=== PATIENT | female | born 1935 | race Caucasian/White ===

== ENCOUNTER → 2018-07-16 | Day surgery (SDC) | payer MEDICARE ==
[2018-07-14 09:58] LABS: BASOPHILS # (AUTO) 0.1 (0.0-0.1); BASOPHILS % 0.8 % (0.0-1.0); EOSINOPHILS # (AUTO) 0.2 (0.0-0.4); EOSINOPHILS % 2.1 % (0.0-6.0); HEMATOCRIT 43.2 % (34.2-44.1); HEMOGLOBIN 14.4 g/dL (12.0-16.0); LYMPHOCYTES # (AUTO) 1.9 (1.0-3.2); LYMPHOCYTES % 23.9 % (18.0-39.1); MEAN CORPUSCULAR HEMOGLOBIN 31.7 pg (28-32); MEAN CORPUSCULAR HGB CONC 33.3 g/dL (31-35); MEAN CORPUSCULAR VOLUME 95.2 fL (81-99); MONOCYTES # (AUTO) 0.9 (0.2-0.8); MONOCYTES % 11.1 % (4.4-11.3); NEUTROPHILS # (AUTO) 4.8 (2.1-6.9); NEUTROPHILS % 61.5 % (38.7-80.0); PLATELET COUNT 233 x10e3/uL (140-360); RED BLOOD COUNT 4.54 x10e6/uL (3.6-5.1); RED CELL DISTRIBUTION WIDTH 12.3 % (11.7-14.4)
[2018-07-14 10:07] LABS: INR 1.32; PROTHROMBIN TIME 15.4 seconds (11.9-14.5)
[2018-07-14 10:08] LABS: PARTIAL THROMBOPLASTIN TIME 30.6 seconds (23.8-35.5)
--- NOTE | 2018-07-14 10:09 | Diagnostic Imaging Report ---
PROCEDURE: Frontal and lateral views of the chest. COMPARISON: Chest radiograph 04/21/17. INDICATIONS: PREOPERATIVE CHEST XRAY FOR CARPAL TUNNEL SURGERY FINDINGS: Lines/tubes: None. Lungs: Mild cephalization of pulmonary vasculature, suggestive of pulmonary venous hypertension without pulmonary edema. There is no evidence of pneumonia. Linear opacity in the left mid lung may represent linear atelectasis or scarring. Pleura: There is no pleural effusion or pneumothorax. Heart and mediastinum: The cardiomediastinal silhouette is unchanged. Atherosclerotic calcification of the aortic arch. Bones/soft tissues: No acute bony abnormality. Clips project over the left axilla. IMPRESSION: No acute intrathoracic abnormality. Dictated by: JESSICA MCCRARY M.D. on 07/14/2018 at 10:16 Electronically approved by: JESSICA MCCRARY M.D. on 07/14/2018 at 10:16
[~2018-07-16] MED LIST: ASPIR-LOW81 MG PO; BUPIVACAINE HCL 0.5% INJ 30 ML VIAL INJ ONE; CALTRATE 600600 MG PO; CEFAZOLIN SOD 1 GM VIAL IV ONE; CEFAZOLIN SOD 1 GM VIAL ONE; CENTRUM SILVER1 EAC3 PO; DEXAMETHASONE SOD PHOS INJ 4 MG/ML VIAL IV ONE; DIOVAN160 MG PO; FENTANYL CITRATE/PF 100MCG/2 ML INJ ONE; HYDRALAZINE HCL25 MG PO; LABETALOL HCL 20 ML ONE; LIDOCAINE HCL 2% LOCAL INJ 5 ML SDV VIAL INJ ONE; LOSARTAN POTAS100 MG PO; METOPROLOL TART25 MG PO; ONDANSETRON HCL INJ 2 MG/ML VIAL IV ONE; PROPOFOL IV EMULSION 10 MG/ML 20 ML VIAL IV ONE; PROPRANOLOL HCL80 MG PO; SEVOFLURANE INHAL SOLN 250 ML PEN BTL INH ONE; SIMVASTATIN80 MG PO; ZETIA10 MG PO; ZYRTEC10 MG PO
--- NOTE | 2018-07-16 11:02 | Operative Report ---
DATE OF PROCEDURE: July 16, 2018 PREOPERATIVE DIAGNOSIS: Right carpal tunnel syndrome. POSTOPERATIVE DIAGNOSIS: Right carpal tunnel syndrome. PROCEDURE: Right carpal tunnel release. ANESTHESIA: General. INDICATIONS: The patient is an 83-year-old woman who presents with right carpal tunnel syndrome. She was taken to the operating room for right carpal tunnel release. PROCEDURE: After induction of general anesthesia, the patient was placed on the operating table in the supine position. The right arm was abducted over a hand table. The right hand, wrist and forearm were prepped and draped circumferentially in a sterile fashion. A tourniquet was inflated over the upper arm to 250 mmHg. A small midline incision was created over the median palmar crease of the hand just distal to the distal flexor crease of the wrist. The subcutaneous fat was divided. The transverse carpal ligament was identified and incised with a #15C blade until the underlying median nerve came into view. As the cardiovascular physician assistant retracted the skin edges, the transverse carpal ligament was divided proximally and distally until the full length of the ligament had been were divided. The full length of the median nerve was exposed and decompressed within the carpal tunnel. The wound was copiously irrigated with Bacitracin solution. The recurrent motor branch of the nerve had been preserved within its fat pad. The subcutaneous layer was closed with 3-0 Vicryl suture. The skin was closed with a single 3-0 nylon suture in a horizontal mattress fashion. A dressing was applied after the incision had been infiltrated with lidocaine. The hand was wrapped. The patient was awakened, extubated and taken to the postanesthesia care unit in stable condition. No intraoperative complications were encountered. Estimated blood loss was minimal. Job#: [id number]
[2018-07-16 12:05] VITALS: BP 157/84
== END | disposition home or self-care (01) ==
LOC: OR 07:59
PROVIDERS: ATTEND Neurological Surgery
DX: G56.01 Carpal tunnel syndrome, right upper limb (principal); I25.10 Atherosclerotic heart disease of native coronary artery without angina pectoris; E78.5 Hyperlipidemia, unspecified; I10 Essential (primary) hypertension; Z01.810 Encounter for preprocedural cardiovascular examination; Z01.812 Encounter for preprocedural laboratory examination; Z01.818 Encounter for other preprocedural examination; Z79.82 Long term (current) use of aspirin; Z85.3 Personal history of malignant neoplasm of breast
CPT/HCPCS: 36415; 64721; 71046; 85025; 85610; 85730; 93005; J0690; J1100; J2001; J2405; J3490

== ENCOUNTER 2019-12-21 01:59 | Inpatient (IN) | payer MEDICARE ==
[~2019-12-21] VITALS: Ht 157.5 cm; Wt 65.4 kg
[~2019-12-21 01:59] MED LIST changes: -BUPIVACAINE HCL 0.5% INJ 30 ML VIAL INJ ONE; -CEFAZOLIN SOD 1 GM VIAL IV ONE; -CEFAZOLIN SOD 1 GM VIAL ONE; -DEXAMETHASONE SOD PHOS INJ 4 MG/ML VIAL IV ONE; -FENTANYL CITRATE/PF 100MCG/2 ML INJ ONE; -LABETALOL HCL 20 ML ONE; -LIDOCAINE HCL 2% LOCAL INJ 5 ML SDV VIAL INJ ONE; -ONDANSETRON HCL INJ 2 MG/ML VIAL IV ONE; -PROPOFOL IV EMULSION 10 MG/ML 20 ML VIAL IV ONE; -SEVOFLURANE INHAL SOLN 250 ML PEN BTL INH ONE
[2019-12-21 02:18] LABS: BASOPHILS % 0.2 % (0.0-1.0); HEMATOCRIT 38.9 % (34.2-44.1); LYMPHOCYTES # (AUTO) 0.8 (1.0-3.2); LYMPHOCYTES % 4.9 % (18.0-39.1); MEAN CORPUSCULAR HEMOGLOBIN 31.9 pg (28-32); MEAN CORPUSCULAR HGB CONC 33.4 g/dL (31-35); MEAN CORPUSCULAR VOLUME 95.6 fL (81-99); MONOCYTES # (AUTO) 0.9 (0.2-0.8); NEUTROPHILS # (AUTO) 13.9 (2.1-6.9); NEUTROPHILS % 88.6 % (38.7-80.0); PLATELET COUNT 270 x10e3/uL (140-360); RED BLOOD COUNT 4.07 x10e6/uL (3.6-5.1); RED CELL DISTRIBUTION WIDTH 12.5 % (11.7-14.4)
[2019-12-21 02:30] LABS: INR 1.01; PARTIAL THROMBOPLASTIN TIME 30.9 seconds (23.8-35.5); PROTHROMBIN TIME 13.9 seconds (11.9-14.5)
[2019-12-21] MEDS ORDERED: DILTIAZEM HCL 5 MG/ML 5 ML VIAL IV STA ×2 (02:37→06:22)
[2019-12-21 02:40] LABS: ALANINE AMINOTRANSFERASE 37 IU/L (0-55); ALBUMIN 3.8 g/dL (3.5-5.0); ALBUMIN/GLOBULIN RATIO 1.4 (0.8-2.0); ALKALINE PHOSPHATASE 65 IU/L (40-150); ANION GAP 14.6 mmol/L (8-16); BLOOD UREA NITROGEN 15 mg/dL (7-26); BUN/CREATININE RATIO 19 (6-25); CALCIUM 9.5 mg/dL (8.4-10.2); CARBON DIOXIDE 25 mmol/L (22-29); CHLORIDE 98 mmol/L (98-107); CREATINE KINASE 69 IU/L (29-168); EST GLOMERULAR FILTRATION RATE > 60 ML/MIN (60-); GLUCOSE 187 mg/dL (74-118); POTASSIUM 3.6 mmol/L (3.5-5.1); SODIUM 134 mmol/L (136-145)
[2019-12-21] MEDS ORDERED: METOPROLOL TARTRATE INJ 1 MG/ML VIAL IV ONE ×2 (02:45→18:00)
[2019-12-21 02:51] LABS: BILIRUBIN,URINE NEGATIVE (NEGATIVE); CLARITY,URINE CLEAR (CLEAR); COLOR,URINE YELLOW (YELLOW); KETONES,URINE 1+ (NEGATIVE); LEUKOCYTE ESTERASE ,URINE NEGATIVE (NEGATIVE); NITRITE,URINE NEGATIVE (NEGATIVE); PROTEIN,URINE DIPSTICK TRACE (NEGATIVE); URINE UROBILINOGEN 0.2 mg/dL (0.2 - 1)
[2019-12-21 03:04] LABS: BACTERIA,URINE FEW /HPF; EPITHELIAL CELLS,URINE FEW /LPF; WBC,URINE (MAN) 0-5 /HPF (0-5)
[2019-12-21] MEDS ORDERED: IOPAMIDOL 370 MG/ML 200 ML INFUS..BTL INJ ONE (03:23)
[2019-12-21] MEDS ORDERED: SODIUM CHLORIDE 0.9% 50ML 50 ML ONE (03:24)
[2019-12-21] MEDS ORDERED: ONDANSETRON HCL INJ 2MG/ML 2ML 2 MG/ML VIAL IV STA ×2 (03:25→07:18)
--- NOTE | 2019-12-21 04:19 | Diagnostic Imaging Report ---
EXAMINATION: CHEST 2 VIEWS INDICATION: Shortness of breath ^ABDOMINAL PAIN, AFIB RVR COMPARISON: Chest x-ray 08/17/2019 FINDINGS: PA and lateral views TUBES and LINES: None. LUNGS: Diffuse hyperinflation suggestive of small airways disease. New eventration of the right diaphragm with overlying lower lobe airspace opacity. Bilateral upper lung zone reticulonodular densities have developed. PLEURA: No pleural effusion or pneumothorax. HEART AND MEDIASTINUM: The heart is mildly enlarged. Ascending thoracic aorta is tortuous. BONES AND SOFT TISSUES: The bones are diffusely demineralized. Mild degenerative changes of the spine. No focal osseous lesions. Surgical clips in the left axilla are stable. The left breast shadow is smaller and the right suggestive of surgery. UPPER ABDOMEN: There is excreted contrast in the left renal collecting system. No hydronephrosis. IMPRESSION: 1. New right basilar airspace opacity may represent atelectasis or infiltrate. Bilateral upper lobe reticulonodular densities may represent an infectious/infiltrate process. 2. Other findings as described above. Signed by: Dr. Rebel Ramos MD on 12/21/2019 4:17 AM
--- NOTE | 2019-12-21 04:36 | Diagnostic Imaging Report ---
CT Abdomen And Pelvis with Intravenous Contrast INDICATION: Shortness of breath, burning sensation ^rlq pain TECHNIQUE: Thin collimation axial images obtained from the diaphragm to the level of the pubic symphysis following the uneventful administration of 100 cc of low osmolar, nonionic intravenous contrast. Dose reduction techniques used: Automated exposure control, adjustment of the mAs and/or kVp according to patient size, standardized low-dose protocol, and/or iterative reconstruction technique. RADIATION DOSE: Total DLP: 216.8 mGy*cm Estimated effective dose: (DLP x 0.015 x size factor) mSv CTDIvol has been reviewed. It is below the limits set by the Radiation Protocol Committee (RPC). COMPARISON: None. ABDOMEN FINDINGS: Lung Bases: Right pleural effusion layers posterior and measures 3 cm with associated atelectasis or infiltrate. Small left pleural effusion. Calcified lymph nodes at the GE junction measure less than 10 mm. Liver: No evidence for mass. Gallbladder: Present and appears normal. No biliary ductal dilatation. Pancreas: Normal attenuation without mass or ductal dilatation. Spleen: Normal in size. No evidence of mass.. Adrenal Glands: No evidence for mass. Kidneys: Right: Normal enhancement. Low attenuating lesion in the lower pole measures 2.2 cm and is somewhat wedge-shaped in appearance. Somewhat wedge-shaped low attenuating lesion in the lateral upper pole measures 13 mm. No hydronephrosis. No perinephric inflammation. Left: Normal enhancement. Upper pole cyst measures 8 mm. No hydronephrosis. No perinephric inflammation. Lymph Nodes: No lymphadenopathy. Aorta: Normal in diameter and diffusely calcified PELVIS FINDINGS: Bowel: Stomach: Normal. Small Bowel: Normal in caliber with normal wall thickness. Large Bowel: Normal in caliber with normal wall thickness. Appendix: Normal. Bladder: Normal. The uterus is present and normal in morphology. Parametrial vasculature is prominent Peritoneum/retroperitoneum: No free fluid or fluid collection. No free air. Bones: Degenerative changes of the spine. Grade 1 anterolisthesis of L4 and L5 without pars defects. No focal osseous lesions. Soft tissues: Unremarkable. IMPRESSION: 1. Bilateral pleural effusions, right larger than left, with bibasilar atelectasis. Small foci of pneumonia in the right lung base cannot be excluded. 2. No evidence for bowel obstruction or inflammation. Normal appendix. 3. Low attenuating lesions in the right kidney are suggestive of cysts; however, the largest lesion in the right kidney may also represent an infarct in the appropriate clinical setting. 3. 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 Signed by: Dr. Rebel Ramos MD on 12/21/2019 4:34 AM
[2019-12-21] MEDS ORDERED: AZITHROMYCIN 500MG/SOD CHL 0.9% 250ML BAG IV SCH (06:30)
[2019-12-21] MEDS ORDERED: CEFTRIAXONE SOD 1 GRAM/0.9% SOD CHL 50ML BAG IV SCH (06:30)
[2019-12-21] MEDS ORDERED: MORPHINE SULFATE INJ 4 MG/ML INJ 1ML IV STA (07:18)
[2019-12-21] MEDS: CEFTRIAXONE SOD 1 GM/NS 50 ML 50 ML IV SCH (07:49)
[2019-12-21] MEDS: AZITHROMYCIN 500MG/NS 250 ML 250 ML IV SCH (08:12)
[2019-12-21 10:11] LABS: CREATINE KINASE MB 1.7 ng/mL (0-5.0)
[2019-12-21 16:25] VITALS: BP 151/92
[2019-12-21 16:30] VITALS: BP 151/92
--- NOTE | 2019-12-21 16:30 | NUR ---
PATIENT RECEIVED FROM ER PER STRETCHER. ALERT AND VERBALLY RESPONSIVE. DENIED PAIN AT THIS TIME. SKIN WARM AND DRY TO TOUCH, RESPIRATION EVEN AND UNLABORED, ABDOMEN SOFT AND NON DISTENDED. TELEMETRY WITH PULSE OX IN PLACE. PATIENT ORIENTED TO SURROUNDINGS. BED IN LOWER POSITION, CALL LIGHT AT REACH. INSTRUCTED TO CALL FOR ASSISTANCE NEEDED.
--- NOTE | 2019-12-21 18:42 | NUR ---
MD IN TO SEE PATIENT, NOTIFIED OF ELEVATED HR 120-140. NEW ORDER RECEIVED AND IMPLEMENTED. HR AT 85-97 AT THIS TIME. WILL CLOSELY MONITOR.
--- NOTE | 2019-12-21 19:37 | NUR ---
RECEIVED PT IN BED AOX3 .DENIES PAIN .RESPIRATIONS ARE EVEN AND UNLABORED .CALL LIGHT WITH IN REACH .CONTINUE TO MONITOR
[2019-12-21 19:40] VITALS: BP 155/95
[2019-12-21 20:00] VITALS: BP 163/96
[2019-12-21] MEDS ORDERED: ENOXAPARIN SOD INJ 40 MG/0.4 ML SYR SC SCH (20:00)
[2019-12-21] MEDS ORDERED: METOPROLOL TARTRATE 25 MG TAB PO SCH (21:00)
[2019-12-21] MEDS: HYDRALAZINE HCL 25 MG TAB PO SCH (21:24)
[2019-12-21] MEDS: SIMVASTATIN 80 MG TAB PO SCH (21:25)
--- NOTE | 2019-12-21 22:09 | History and Physical ---
CHIEF COMPLAINT: An 84-year-old patient with abdominal pain. HISTORY OF PRESENT ILLNESS: This is an 84-year-old female, who came in to the emergency room with abdominal pain, epigastric in nature, radiating to both sides. The patient was found to be in atrial fibrillation with RVR, given Cardizem drip and the patient is admitted to the hospital. Currently, the patient is still running tachy and the patient has been given IV metoprolol 2.5 mg. PAST MEDICAL HISTORY: 1. History of hypertension. 2. History of hyperlipidemia. 3. History of atrial fibrillation. 4. History of abdominal pain. 5. History of hyperlipidemia. MEDICATIONS: She takes at home are: 1. Aspirin 81 mg daily. 2. Calcium 600 mg daily. 3. Zetia 10 mg daily. 4. Hydralazine 25 mg daily. 5. Losartan 100 mg daily. 6. Metoprolol 25 mg 3 times a day. 7. Simvastatin 80 mg daily. PAST SURGICAL HISTORY: History of lumpectomy for her breast cancer. FAMILY HISTORY: Positive for congestive heart failure in father and CAD in father. ALLERGIES: NO DRUG ALLERGIES. REVIEW OF SYSTEMS: Negative for chest pain. Positive for some shortness of breath. Positive abdominal pain. No nausea. No vomiting. No diarrhea. No constipation. No rectal bleeding. No hematochezia. No hematemesis. PHYSICAL EXAMINATION: VITAL SIGNS: Temperature is 99.1, pulse of 75, respirations of 19, pulse oximetry of 97%. The patient's blood pressure is 151/91. GENERAL: Currently, the patient is running tachy, atrial fibrillation with RVR. HEENT: Normocephalic, atraumatic. Pupils are reactive to light and accommodation. CVS: S1 and S2, irregularly irregular and tachy. ABDOMEN: Tender in the epigastrium. EXTREMITIES: No clubbing, no cyanosis, trace edema present. LABORATORY VALUES: Sodium 134, potassium 3.6. BUN of 15, creatinine 0.80. . BNP was 202. Coags, D-dimer was 562. INR was 1.012[place] [address] with neutrophil count of 88.6. IMAGING DATA: CT shows bilateral pleural effusions, right larger than left with basal atelectasis and foci of pneumonia in the right lung base cannot be excluded. No evidence of bowel obstruction or inflammation. Low-attenuation lesion, right kidney, with present pelvic congestion syndrome and potential causes of chronic abdominal pain. Chest x-ray shows new right basilar airspace opacity on infiltrate. ASSESSMENT: Ms. Laura Storey with pneumonia. PLAN: Continue azithromycin and Rocephin. We will continue the same. Blood cultures have been ordered and pending. The patient is on O2. Albuterol Atrovent treatment will be given and Xopenex treatments will be given. The patient also will be getting her metoprolol 3 times a day, atrial fibrillation with RVR. Consult with Dr. Mckoy has been done. The patient will be restarted on her metoprolol anticoagulation depending on Dr. Mckoy. We will continue to monitor the patient. Further recommendation and clinical course, echocardiogram, TSH, T4, T3, and magnesium will be done in the morning and we will restart her home medications. MD PORTILLO Spangler/MODL /[id number]
[2019-12-22] VITALS (8 sets, daily range): BP systolic 92–138; BP diastolic 55–93
[2019-12-22] MEDS ORDERED: SODIUM CHLORIDE 0.9% 250ML 250 ML ONE (03:21)
[2019-12-22] MEDS ORDERED: SODIUM CHLORIDE 0.9% 50ML 50 ML ONE (03:50)
[2019-12-22] MEDS ORDERED: IOPAMIDOL 370 MG/ML 200 ML INFUS..BTL INJ ONE (03:50)
--- NOTE | 2019-12-22 05:01 | Diagnostic Imaging Report ---
CT chest INDICATION: ^pneumonia pleural effusion ^20191222 ^0355 TECHNIQUE: Thin collimation axial images obtained through the level of the pulmonary arteries with additional imaging through the chest following the uneventful administration of 100 cc of low osmolar, nonionic intravenous contrast. Images reconstructed into coronal and sagittal MIPs for complete evaluation of the tortuous and overlapping pulmonary vascular structures and to reduce patient radiation dose. RADIATION DOSE: Total DLP: 504.69 mGy*cm Estimated effective dose: (DLP x 0.015 x size factor) mSv CTDIvol has been reviewed. It is below the limits set by the Radiation Protocol Committee (RPC). Dose reduction techniques used: Automated exposure control, adjustment of the mAs and/or kVp according to patient size, standardized low-dose protocol, and/or iterative reconstruction technique. COMPARISON: CT abdomen/pelvis 12/21/2019. FINDINGS: Pulmonary artery: Linear, nonocclusive filling defect in the lower lobe branch of the left pulmonary artery. No filling defect in the main pulmonary artery. Main pulmonary artery measures 2.5 cm Aorta: The thoracic aorta is not aneurysmal. No evidence for dissection. Lymph nodes: Left axillary lymph node dissection clips. No enlarged axillary or supraclavicular lymph nodes. There are multiple calcified mediastinal and hilar lymph nodes. Thyroid: Partially calcified nodule in the right lobe measures 7 mm. Mediastinum: The heart is enlarged. Calcifications of the aortic and mitral valves and scattered calcifications of the coronary arteries. No pericardial effusion. The esophagus is normal. Lungs/Pleura: Right Lung: Apical pleural-parenchymal thickening. Multiple noncalcified nodules in the upper lobe measure up to 5 mm. Calcified granuloma in the lower lobe measures 4 mm. Posterior left pleural effusion measures 2.8 cm with atelectasis of the overlying lung. Left Lung: Apical pleural-parenchymal thickening. 2 nodules in the lateral upper lobe measure up to 4 mm. There is subsegmental atelectasis in the lingular and the lower lobe. Fluid in the posterior costophrenic angle measures 15 mm with adjacent atelectasis. Abdomen: Low attenuating lesions in the right kidney are stable. Bones: Mild degenerative changes of the spine. No lytic or blastic lesions. IMPRESSION: 1. Nonocclusive embolus in the lower lobe branch of the left pulmonary artery. No evidence of right heart strain. 2. Bilateral pleural effusions, right larger than left, and bibasilar atelectasis. 3. Healed granulomatous inflammation. 4. Bilateral upper lobe nodules bear watching to confirm stability. Signed by: Dr. Rebel Ramos MD on 12/22/2019 4:59 AM
[2019-12-22 06:00] LABS: BASOPHILS % 0.1 % (0.0-1.0); EOSINOPHILS # (AUTO) 0.1 (0.0-0.4); EOSINOPHILS % 0.5 % (0.0-6.0); HEMATOCRIT 38.1 % (34.2-44.1); HEMOGLOBIN 13.1 g/dL (12.0-16.0); LYMPHOCYTES % 7.3 % (18.0-39.1); MEAN CORPUSCULAR HEMOGLOBIN 32.3 pg (28-32); MEAN CORPUSCULAR HGB CONC 34.4 g/dL (31-35); MEAN CORPUSCULAR VOLUME 93.8 fL (81-99); MONOCYTES # (AUTO) 1.6 (0.2-0.8); MONOCYTES % 11.2 % (4.4-11.3); NEUTROPHILS # (AUTO) 11.3 (2.1-6.9); NEUTROPHILS % 80.6 % (38.7-80.0); PLATELET COUNT 206 x10e3/uL (140-360); RED BLOOD COUNT 4.06 x10e6/uL (3.6-5.1); RED CELL DISTRIBUTION WIDTH 12.9 % (11.7-14.4)
[2019-12-22 06:29] LABS: ANION GAP 10.8 mmol/L (8-16); BLOOD UREA NITROGEN 10 mg/dL (7-26); BUN/CREATININE RATIO 15 (6-25); CALCIUM 8.7 mg/dL (8.4-10.2); CARBON DIOXIDE 24 mmol/L (22-29); CHLORIDE 97 mmol/L (98-107); CREATININE, SERUM 0.67 mg/dL (0.57-1.11); EST GLOMERULAR FILTRATION RATE > 60 ML/MIN (60-); GLUCOSE 121 mg/dL (74-118); MAGNESIUM 1.8 MG/DL (1.3-2.1); POTASSIUM 3.8 mmol/L (3.5-5.1); SODIUM 128 mmol/L (136-145)
[2019-12-22] MEDS: CEFTRIAXONE SOD 1 GM/NS 50 ML 50 ML IV SCH (06:45)
--- NOTE | 2019-12-22 07:34 | NUR ---
BEDSIDE REPORT GIVEN TO THE ONCOMING NURSE
--- NOTE | 2019-12-22 08:15 | Progress Note ---
DATE: 12/22/2019 SUBJECTIVE: An 84-year-old lady who came in with shortness of breath and also with abdominal pain. Yesterday, the patient came and initial CT scan showed a questionable pneumonia in the right lower lobe. The patient was started on antibiotic. Also, the patient was noted to have atrial fibrillation with RVR. Coag study showed D-dimer elevation. A CT scan was done yesterday. The patient was started on Lovenox 1 mg/kg probably secondary to possible pulmonary embolism. CT scan of the lung revealed a pulmonary embolism, nonocclusive from the left pulmonary artery with no evidence of right artery strain. The patient also had bilateral pleural effusion, started again on Lovenox and the patient is currently feeling better. The patient is still having a rapid ventricular response. Currently, no chest pain. No shortness of breath. Abdominal pain is much better. OBJECTIVE: VITAL SIGNS: Show temperature of 98.9, T-max of 99.7, respirations of 16, pulse is 110, blood pressure is 134/64, pulse oximetry is 95% with O2 of 2 L. HEENT: Normocephalic and atraumatic. Pupils reactive to light and accommodation. CVS: S1 and S2. Regular. Tachy. ABDOMEN: Nontender, nondistended. LUNGS: Positive for crackles in both lung bases, also some rhonchi. EXTREMITIES: No clubbing, no cyanosis, no edema. LABORATORY VALUES: Chemistry today shows sodium of 128, potassium of 3.8, BUN of 10.10, creatinine 0.67. BNP was 202. Hematology, white count is down to 13,000, hemoglobin of 13.1, hematocrit 38.4. Coags as noted. D-dimer is 562. IMAGING STUDIES: Chest CT shows nonocclusive emboli of lower branch of left pulmonary artery, bilateral pleural effusion, right greater than left, healed granulomatous inflammation in bilateral upper nodules ASSESSMENT: Ms. Laura Storey with: 1. Pulmonary embolism. 2. Questionable pneumonia. 3. Leukocytosis, probably reactive. 4. Hypertension. 5. Atrial fibrillation with RVR. PLAN: Increased metoprolol to 50 mg 3 times a day. Consult with Dr. Mckoy has been placed. Echocardiogram has been done. The patient is on Lovenox 1 mg/kg twice a day. We will begin with 2 Xarelto which she has been taking before. We will keep the antibiotics on board until leukocytosis resolved. We will continue to monitor the patient. Microbiology is normal so far. Blood cultures are still pending. Further recommendation per clinical course. We will continue to monitor the patient and will continue to monitor the patient along with Dr. Mckoy. MD PORTILLO Spangler/GLENDA /[id number]
[2019-12-22] MEDS: HYDRALAZINE HCL 25 MG TAB PO SCH ×3 (08:29→20:38)
[2019-12-22] MEDS: ASPIRIN 81 MG CHEW TAB PO SCH (08:29)
[2019-12-22] MEDS: METOPROLOL TARTRATE 50 MG TAB PO SCH ×3 (08:29→20:39)
[2019-12-22] MEDS: EZETIMIBE 10 MG TAB PO SCH (08:29)
[2019-12-22] MEDS: LOSARTAN POTASSIUM 100 MG TAB PO SCH (08:29)
[2019-12-22] MEDS: ENOXAPARIN INJ 80 MG/0.8 ML SYR SC SCH ×2 (08:30→20:39)
[2019-12-22] MEDS: AZITHROMYCIN 500MG/NS 250 ML 250 ML IV SCH (08:42)
[2019-12-22] MEDS: AMIODARONE HCL 200 MG TAB PO SCH ×3 (11:02→23:42)
--- NOTE | 2019-12-22 15:47 | Consultation ---
DATE OF CONSULTATION: 12/22/2019 Cardiology Consultation Ms. Storey is a [facility] 84-year-old woman known to me for many years, who is sent from Dr. Flores's office on the with complaints of abdominal discomfort and atrial fibrillation. HISTORY OF PRESENT ILLNESS: The patient has a diary at home of blood pressures and heart rates noted over the past 2 weeks that she occasionally would have a heart rate of 100 and then later would have a heart rate in the 70s and 80s. She noted after leaving his office that she had abdominal discomfort and came to the emergency room. She denies any nausea, vomiting, or diarrhea. PAST MEDICAL HISTORY: Significant for breast cancer on the left side in 1996, treated with radiation therapy and lumpectomy. She did not have any chemotherapy. She developed pericardial effusion in 1997, treated with pericardial window. She has longstanding hypertension and cardiac cath and carotid angiogram April 2017, showed insignificant coronary artery disease. Normal LV function and moderate carotid disease. MEDICATIONS: Recent home medications have been calcium, multivitamin, metoprolol tartrate 25 mg twice a day, aspirin 81 mg daily, hydralazine 50 mg 3 times a day, simvastatin 80 mg daily, ezetimibe 10 mg daily, and losartan 100 mg daily. PERSONAL AND SOCIAL HISTORY: She does not smoke or drink. ALLERGIES: SHE HAS NO KNOWN ALLERGIES, ALTHOUGH SHE WAS INTOLERANT OF TAMBOCOR, FLECAINIDE, WHICH EVIDENTLY CAUSE SOME NEUROLOGIC SYMPTOMS. PHYSICAL EXAMINATION: GENERAL: At this time shows a pleasant woman, who is alert and responsive. VITAL SIGNS: Blood pressure 132/85, pulse is 107 and irregularly irregular. HEAD, EYES, EARS, NOSE, AND THROAT: Relatively unremarkable. NECK: No jugular venous distention. THORAX: Heart sounds S1 and S2 are equal, but irregularly irregular. There is no distinct murmur. LUNGS: Clear to exam. ABDOMEN: Protuberant. Normal bowel sounds. Minimal tenderness. EXTREMITIES: There is no cyanosis, clubbing, or edema. LABORATORY DATA: EKG shows atrial fibrillation. CAT scan of the chest shows embolus in the left lower lobe branch of pulmonary artery. Multiple pulmonary nodules, 4 and 5 mm in size with possible infiltrates. CBC shows white count 13.9. ASSESSMENT: 1. Intermittent atrial fibrillation. 2. Pulmonary nodules. 3. Pulmonary embolus. 4. History of breast cancer. PLAN: As the atrial fibrillation seems to be intermittent, we will go ahead and begin amiodarone oral loading. We will check venous Doppler scan of the legs and ask for Pulmonary consultation as well. Thank you for asking me to see her in consultation. MD ARRON Menendez/GLENDA /[id number]
[2019-12-22] MEDS: ONDANSETRON HCL INJ 2MG/ML 2ML 2 MG/ML VIAL IV PRN (17:27)
[2019-12-22] MEDS ORDERED: PANTOPRAZOLE SOD 40 MG TABEC PO ONE (18:00)
--- NOTE | 2019-12-22 20:07 | NUR ---
RECEIVED PT IN BED AOX3 .DENIES PAIN .CALL LIGHT WITH IN REACH .CONTINUE TO MONITOR
[2019-12-22] MEDS: SIMVASTATIN 80 MG TAB PO SCH (20:39)
[2019-12-23] VITALS (7 sets, daily range): BP systolic 106–119; BP diastolic 58–79
--- NOTE | 2019-12-23 00:23 | Consultation ---
DATE OF CONSULTATION: 12/22/2019 Pulmonary Consult[address] Patient of Dr. Stephan Flores and Dr. Mckoy. HISTORY OF PRESENT ILLNESS: A charming 84-year-old woman, admitted with sudden onset of abdominal pain, found to be in acute heart failure with atrial fibrillation, rapid ventricular response. She has had similar episodes in the past, usually active. There is a history of breast cancer in 1996, treated with lumpectomy and radiation. She had pericardial window for large pericardial effusion in 2018. She had recurrence of her atrial fibrillation. She denies shortness of breath, however. ALLERGIES: NO KNOWN ALLERGIES. MEDICATIONS: Calcium, vitamin, aspirin, Zetia, apresoline, losartan, metoprolol, and Zocor. PAST SURGICAL HISTORY: She had carpal tunnel surgery. 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 Born in [place], [place]. Nonsmoker. No alcohol use. FAMILY HISTORY: Positive for stroke and heart failure. PHYSICAL EXAMINATION: GENERAL: white female, in no acute distress, complaining of abdominal pain regular, blood pressure 111/61. HEAD: Normocephalic and atraumatic. EYES: Extraocular movements are intact. LUNGS: Diminished breath sounds, both bases. HEART: Irregular rhythm. ABDOMEN: Nontender. EXTREMITIES: Not edematous. venous Doppler. IMPRESSION: Multiple subcentimeter pulmonary nodules . PLAN: There is no evidence of pneumonia. We will discontinue Zithromax as this is known to cause GI upset. Continue Rocephin. Trial of Protonix. Follow up CT in 4 to 6 weeks. Check . Thank you for this kind referral. Hany Esposito MD DS/MODL /[id number]
[2019-12-23] MEDS: CEFTRIAXONE SOD 1 GM/NS 50 ML 50 ML IV SCH (06:32)
[2019-12-23] MEDS: AMIODARONE HCL 200 MG TAB PO SCH ×3 (06:32→22:26)
--- NOTE | 2019-12-23 06:57 | NUR ---
PT RESTED DURING THE NIGHT ND PT C/O DIARRHEA .NOTIFIED DR DIAZ .BEDSIDE REPORT GIVEN TO THE ONCOMING NURSE
[2019-12-23 07:37] LABS: BASOPHILS % 0.2 % (0.0-1.0); EOSINOPHILS % 0.4 % (0.0-6.0); HEMATOCRIT 36.6 % (34.2-44.1); HEMOGLOBIN 12.3 g/dL (12.0-16.0); LYMPHOCYTES # (AUTO) 1.1 (1.0-3.2); LYMPHOCYTES % 10.2 % (18.0-39.1); MEAN CORPUSCULAR HEMOGLOBIN 31.6 pg (28-32); MEAN CORPUSCULAR HGB CONC 33.6 g/dL (31-35); MEAN CORPUSCULAR VOLUME 94.1 fL (81-99); MONOCYTES # (AUTO) 1.5 (0.2-0.8); NEUTROPHILS # (AUTO) 7.9 (2.1-6.9); NEUTROPHILS % 74.9 % (38.7-80.0); PLATELET COUNT 204 x10e3/uL (140-360); RED BLOOD COUNT 3.89 x10e6/uL (3.6-5.1); RED CELL DISTRIBUTION WIDTH 12.9 % (11.7-14.4)
[2019-12-23 07:54] LABS: ANION GAP 9.9 mmol/L (8-16); BLOOD UREA NITROGEN 15 mg/dL (7-26); BUN/CREATININE RATIO 21 (6-25); CALCIUM 8.7 mg/dL (8.4-10.2); CARBON DIOXIDE 24 mmol/L (22-29); CHLORIDE 95 mmol/L (98-107); CREATININE, SERUM 0.71 mg/dL (0.57-1.11); EST GLOMERULAR FILTRATION RATE > 60 ML/MIN (60-); GLUCOSE 105 mg/dL (74-118); POTASSIUM 3.9 mmol/L (3.5-5.1); SODIUM 125 mmol/L (136-145)
[2019-12-23] MEDS: PANTOPRAZOLE SOD 40 MG TABEC PO SCH (08:00)
[2019-12-23] MEDS: EZETIMIBE 10 MG TAB PO SCH (09:00)
[2019-12-23] MEDS: ASPIRIN 81 MG CHEW TAB PO SCH (09:00)
[2019-12-23] MEDS: METOPROLOL TARTRATE 50 MG TAB PO SCH ×3 (09:00→22:25)
[2019-12-23] MEDS: LOSARTAN POTASSIUM 100 MG TAB PO SCH (09:00)
--- NOTE | 2019-12-23 10:35 | Progress Note ---
DATE: 12/23/2019 SUBJECTIVE: The patient came in with abdominal pain, was incidentally found to have pneumonia. The patient had a D-dimer done, which was elevated. A CT scan done, which showed a small pulmonary embolism, kept in the hospital for atrial fibrillation and also pulmonary embolism. DVT study was done yesterday. No official report is here, but initial tech report was negative. The patient is currently on Lovenox 1 mg/kg twice a day. Throughout the night had 4 bowel movements yesterday and also after the loading dose of amiodarone. The patient is nauseous currently, otherwise doing better. Heart rate is stable. OBJECTIVE: VITAL SIGNS: Temperature is 97.5, pulse of 78, respirations of 19, blood pressure is 107/79, pulse oximetry of 95% on 2 L. HEENT: Normocephalic and atraumatic. The patient looks nauseous. CVS: S1 and S2. Irregular. LUNGS: Clear to auscultation bilaterally. ABDOMEN: Tenderness in the left lower quadrant and the right lower quadrant. EXTREMITIES: No clubbing, no cyanosis. Trace edema. LABORATORY DATA: The patient's white count yesterday was 13,000. Sodium was 128, potassium is 3.8. We will repeat them today. Coags, INR was 1.01 initially and D-dimer was 562. CURRENT MEDICATIONS: Include 400 mg of amiodarone q.8 hours, Rocephin 1 g q.24, Lovenox 70 mg q.12, metoprolol 50 mg 3 times a day, simvastatin 80 mg at nighttime, Zofran as needed, losartan 100 mg daily, Zetia 10 mg daily, azithromycin and pantoprazole. ASSESSMENT: Ms. Laura Storey with: 1. Atrial fibrillation with rapid ventricular response. Loading dose of amiodarone has been given. Continue with p.o. daily dose. 2. Pulmonary embolism. The patient can be switched over to Xarelto. The patient will have a repeat CT scan in [address] Esposito and we will follow up with the nodules. 3. Hypertension. 4. Hyperlipidemia. 5. Pulmonary embolism. 6. Leukocytosis. PLAN: Currently, the patient is on azithromycin and Rocephin. We will go ahead and discontinue azithromycin. Switch over to Xarelto if it is okay with Cardiology. Continue rate control with amiodarone and metoprolol. Blood pressure monitoring and continue with losartan. Further recommendation per clinical course. If nausea and diarrhea dissipates, discharge home in a day or 2, and follow up as an outpatient on Xarelto. MD PORTILLO Spangler/KATHIAL /[id number]
[2019-12-23] MEDS: ONDANSETRON HCL INJ 2MG/ML 2ML 2 MG/ML VIAL IV PRN (11:24)
[2019-12-23] MEDS: HYDRALAZINE HCL 25 MG TAB PO SCH ×3 (11:28→22:24)
[2019-12-23] MEDS ORDERED: RIVAROXABAN 20 MG TABLET PO SCH (17:00)
[2019-12-23] MEDS ORDERED: AZITHROMYCIN 500MG/NS 250 ML 250 ML IV SCH (18:00)
[2019-12-23] MEDS ORDERED: ACETAMINOPHEN 325 MG TAB PO PRN (22:00)
[2019-12-23] MEDS: SIMVASTATIN 80 MG TAB PO SCH (22:26)
[2019-12-23] MEDS: DIPHENOXYLATE/ATROPINE TAB PO PRN (22:26)
[2019-12-24] VITALS (9 sets, daily range): BP systolic 108–133; BP diastolic 50–76
[2019-12-24] MEDS: ONDANSETRON HCL INJ 2MG/ML 2ML 2 MG/ML VIAL IV PRN ×2 (03:06→11:27)
[2019-12-24] MEDS: AMIODARONE HCL 200 MG TAB PO SCH ×3 (06:37→21:19)
[2019-12-24] MEDS: PANTOPRAZOLE SOD 40 MG TABEC PO SCH (09:21)
[2019-12-24] MEDS: SODIUM CHLORIDE 0.9% 1000ML 1,000 ML IV SCH (09:21)
[2019-12-24] MEDS: LOSARTAN POTASSIUM 100 MG TAB PO SCH (09:22)
[2019-12-24] MEDS: ASPIRIN 81 MG CHEW TAB PO SCH (09:22)
[2019-12-24] MEDS: HYDRALAZINE HCL 25 MG TAB PO SCH ×3 (09:22→21:18)
[2019-12-24] MEDS: METOPROLOL TARTRATE 50 MG TAB PO SCH ×3 (09:22→21:18)
[2019-12-24] MEDS: EZETIMIBE 10 MG TAB PO SCH (09:22)
[2019-12-24] MEDS: DIPHENOXYLATE/ATROPINE TAB PO PRN (09:23)
[2019-12-24] MEDS ORDERED: CHOLESTYRAMINE 4 GM PACKET PO PRN (09:45)
--- NOTE | 2019-12-24 10:15 | Progress Note ---
DATE: 12/24/2019 SUBJECTIVE: This is an 84-year-old lady with a history of atrial fibrillation with RVR, and pulmonary embolism. The patient is currently on Xarelto, currently being seen by Cardiology and Pulmonology. The patient currently complains of diarrhea, which has been constant. The patient complains of painful rectum and also complains of abdominal bloating and uneasiness. No chest pain. No palpitations. OBJECTIVE: VITAL SIGNS: On examination, temperature is 98.8, afebrile, pulse of 95, respirations of 19, blood pressure is 133/67, and pulse oximetry 96% on room air. HEENT: Normocephalic and atraumatic. Pupils are reactive to light and accommodation. CVS: S1 and S2. Regular. ABDOMEN: Distended. EXTREMITIES: No clubbing, no cyanosis, no edema. LABORATORY DATA: From yesterday, white count is 10,000. Chemistry shows sodium 125, potassium of 3.9, and CO2 of 24. Coags, none done. MICROBIOLOGY: No growth in blood culture. Bilateral venous lower extremities showed normal. ASSESSMENT: Ms. Laura Storey with: 1. Atrial fibrillation with RVR. 2. Pulmonary embolism. 3. Hypertension. 4. Hyponatremia. 5. Leukocytosis. 6. Hypertension. PLAN: 1. The patient has been taken off antibiotics at this time. White count has normalized. 2. For pulmonary embolism, the patient is on Xarelto and amiodarone. 3. Diarrhea with resultant hyponatremia. IV fluid resuscitation to 50 cc an hour of normal saline. Continue monitoring the patient's sodium. 4. Further recommendation per clinical course. 5. Discharge planning depend on diarrhea and also a KUB has been ordered for distention of the abdomen. MD PORTILLO Spangler/KATHIAL /[id number]
--- NOTE | 2019-12-24 10:15 | NUR ---
Notified Dr. Flores that pt is having dark brown emesis and rectal bleeding. Received orders for STAT CT of abd/pelvis. STAT CBC. consult Ana Stephens and stop vincent.
--- NOTE | 2019-12-24 10:29 | Diagnostic Imaging Report ---
Abdomen, one view on 2 radiographs Clinical indications: Bloating Comparison: Abdominal CT dated 12/21/2019 Impression: There is a mildly dilated loop of small bowel in the central abdomen which measures approximately 3.7 cm in diameter which may be secondary to partial obstruction or ileus. No dilated loops of large bowel are identified. No acute osseous abnormalities. A small right pleural effusion is present. Signed by: Padilla Luke MD on 12/24/2019 10:26 AM
[2019-12-24] MEDS ORDERED: PANTOPRAZOLE 40 MG 10ML VIAL IV NR (10:30)
[2019-12-24] MEDS ORDERED: SODIUM CHLORIDE 0.9% 100 ML ONE (11:42)
[2019-12-24] MEDS ORDERED: IOPAMIDOL 370 MG/ML 200 ML INFUS..BTL INJ ONE (11:43)
--- NOTE | 2019-12-24 12:07 | Diagnostic Imaging Report ---
CT angiogram of the abdomen and pelvis History: Possible GI bleed Comparison: CT of the abdomen and pelvis performed 12/21/2019. Technique: Multidetector CT scanning of the abdomen and pelvis was performed from the level of the lung bases to the inferior pubic ramus. Images were acquired the noncontrast phase followed by IV contrast-enhanced images in the arterial and delayed phases. Images were reformatted into coronal and sagittal planes. DOSE REDUCTION: The examination was performed according to departmental dose-optimization program which includes automated exposure control, adjustment of the mA and/or kV according to patient size and/or use of iterative reconstruction technique. Discussion: There are moderate right and trace left pleural effusions.. No focal hepatic lesions are identified. The gallbladder is present and nondistended. No intrahepatic or extrahepatic biliary dilatation. The spleen is within normal limits of size. The bilateral adrenal glands are unremarkable. There is no pancreatic ductal dilatation. The kidneys are normal in size. There is decreased enhancement of the inferior pole of the right kidney which is unchanged compared to the prior examination and may be secondary to infarction. There is no hydroureteronephrosis bilaterally. No renal calculi are identified. The stomach is nondistended. There are dilated loops of duodenum and jejunum measuring up to 3.9 cm in diameter. Apparent transition point is identified in the left upper quadrant. The ileum and colon are decompressed. There is no evidence of pneumatosis intestinalis or free intraperitoneal air. There has been development of a mesenteric edema trace ascites which is likely reactive from the bowel obstruction. The abdominal aorta is of normal course and caliber. The uterus and bilateral adnexa are within normal limits. The urinary bladder is normal in appearance. No acute osseous abnormalities are identified. IMPRESSION: 1. No evidence of active gastrointestinal bleeding. 2. Partial small bowel obstruction with dilated loops of duodenum and jejunum measuring up to 3.9 cm in diameter. There is no evidence of perforation or pneumatosis intestinalis. 3. Development of a trace amount of ascites and mesenteric edema which is likely reactive to the partial bowel obstruction. 4. Moderate right and trace left pleural effusions. Signed by: Padilla Luke MD on 12/24/2019 12:04 PM
[2019-12-24 12:16] LABS: BASOPHILS % 0.1 % (0.0-1.0); EOSINOPHILS % 0.3 % (0.0-6.0); HEMATOCRIT 28.9 % (34.2-44.1); HEMOGLOBIN 9.7 g/dL (12.0-16.0); LYMPHOCYTES # (AUTO) 0.8 (1.0-3.2); LYMPHOCYTES % 9.6 % (18.0-39.1); MEAN CORPUSCULAR HEMOGLOBIN 31.9 pg (28-32); MEAN CORPUSCULAR HGB CONC 33.6 g/dL (31-35); MEAN CORPUSCULAR VOLUME 95.1 fL (81-99); MONOCYTES % 12.2 % (4.4-11.3); NEUTROPHILS # (AUTO) 6.1 (2.1-6.9); NEUTROPHILS % 77.3 % (38.7-80.0); PLATELET COUNT 203 x10e3/uL (140-360); RED BLOOD COUNT 3.04 x10e6/uL (3.6-5.1); RED CELL DISTRIBUTION WIDTH 12.5 % (11.7-14.4)
--- NOTE | 2019-12-24 12:38 | NUR ---
CT results called to Dr. Flores and received orders for to consult Edgard palomo and make pt NPO
--- NOTE | 2019-12-24 19:15 | NUR ---
RECEIVED REPORT FROM DAY NURSE. PATIENT IS RESTING COMFORTABLY IN BED. BED IS IN LOWEST POSITION AND CALL LIGHT IS WITHIN REACH. WILL CONTINUE TO MONITOR PATIENT.
[2019-12-24] MEDS: SIMVASTATIN 80 MG TAB PO SCH (21:18)
[2019-12-25] VITALS (7 sets, daily range): BP systolic 98–130; BP diastolic 50–77
[2019-12-25] MEDS: SODIUM CHLORIDE 0.9% 1000ML 1,000 ML IV SCH ×2 (05:41→23:30)
--- NOTE | 2019-12-25 06:25 | Diagnostic Imaging Report ---
Acute Abdominal Series CPT CODE: 20801 INDICATION: Ileus. COMPARISON: CT abdomen/pelvis 12/24/2019, CT chest 10/21/2020. FINDINGS: Single view of the chest shows small right pleural effusion and atelectasis. There is baseline pulmonary hyperinflation. The heart is enlarged. Left axillary dissection clips are stable. Supine and erect views of the abdomen show no dilated bowel loops. There are diffuse air-fluid levels, particularly within the right hemiabdomen. No pneumatosis. No free air. There is excreted contrast in the urinary bladder. Stable degenerative changes of the spine with mild scoliosis of the lumbar spine. IMPRESSION: 1. Multiple air-fluid levels in the bowel are suggestive of ileus or low-grade partial small bowel obstruction. No pneumatosis. 2. Stable right pleural effusion. Cardiomegaly and COPD. Signed by: Dr. Rebel Ramos MD on 12/25/2019 6:23 AM
[2019-12-25 07:19] LABS: BASOPHILS % 0.5 % (0.0-1.0); EOSINOPHILS # (AUTO) 0.2 (0.0-0.4); EOSINOPHILS % 2.4 % (0.0-6.0); HEMATOCRIT 27.1 % (34.2-44.1); HEMOGLOBIN 8.8 g/dL (12.0-16.0); LYMPHOCYTES % 12.2 % (18.0-39.1); MEAN CORPUSCULAR HEMOGLOBIN 31.2 pg (28-32); MEAN CORPUSCULAR HGB CONC 32.5 g/dL (31-35); MEAN CORPUSCULAR VOLUME 96.1 fL (81-99); MONOCYTES # (AUTO) 1.2 (0.2-0.8); MONOCYTES % 15.4 % (4.4-11.3); NEUTROPHILS # (AUTO) 5.4 (2.1-6.9); PLATELET COUNT 221 x10e3/uL (140-360); RED BLOOD COUNT 2.82 x10e6/uL (3.6-5.1); RED CELL DISTRIBUTION WIDTH 12.7 % (11.7-14.4)
--- NOTE | 2019-12-25 07:29 | NUR ---
report given to day nurse. patient is resting comfortably in bed. bed is in lowest position and call light is within reach.
--- NOTE | 2019-12-25 07:30 | NUR ---
The pt. is in bed awake and reports expelling black stools. SHe denies other problems at this time.
[2019-12-25 07:48] LABS: ANION GAP 7.9 mmol/L (8-16); BLOOD UREA NITROGEN 19 mg/dL (7-26); BUN/CREATININE RATIO 24 (6-25); CALCIUM 8.5 mg/dL (8.4-10.2); CARBON DIOXIDE 23 mmol/L (22-29); CHLORIDE 104 mmol/L (98-107); CREATININE, SERUM 0.78 mg/dL (0.57-1.11); EST GLOMERULAR FILTRATION RATE > 60 ML/MIN (60-); GLUCOSE 92 mg/dL (74-118); POTASSIUM 3.9 mmol/L (3.5-5.1); SODIUM 131 mmol/L (136-145)
--- NOTE | 2019-12-25 08:50 | Progress Note ---
DATE: 12/25/2019 SUBJECTIVE: The patient had come in with history of pneumonia and pulmonary embolism. Anticoagulation was started. The patient was on Xarelto and also on loading doses of amiodarone for her atrial fibrillation with RVR. Yesterday morning, the patient developed a coffee-ground emesis and stat CT scans and x-rays were done, showed questionable partial small bowel obstruction with ileus, kept n.p.o. The patient is on hydration at this time. Antibiotics have been started. The patient also has stool studies pending. Still having diarrhea continue, C diff has been ordered. No chest pain. No shortness of breath. The patient is depressed because of her findings. Currently n.p.o. and held off anticoagulation. OBJECTIVE: VITAL SIGNS: Temperature is 97.5, pulse of 66, respirations of 16, blood pressure is 109/53, and pulse oximetry of 95%. HEENT: Normocephalic and atraumatic. Pupils are reactive to light and accommodation. CVS: S1 and S2 irregular. ABDOMEN: Distended. EXTREMITIES: No clubbing, no cyanosis, no edema. ABDOMEN: Bowel sounds are positive. LABORATORY VALUES: White count is 7.77, hemoglobin of 8.8, and hematocrit 27.1. Chemistries are pending. Yesterday's sodium was 125. IMAGING STUDIES: CT shows no evidence of acute GI bleed. Partial small-bowel obstruction. Development of trace amount of ascites and moderate right and trace left pleural effusion. ASSESSMENT: 1. Ms. Laura Storey is with an acute upper gastrointestinal bleed. 2. Enteritis. 3. Questionable small-bowel obstruction. 4. Pulmonary embolism. 5. Atrial fibrillation with rapid ventricular response. 6. Debility. 7. Ascites and pleural effusion. PLAN: Continue with saline at this time, rehydration. The patient is kept n.p.o., and NG tube has been introduced, off the anticoagulation. The patient will have SCDs. Continue to monitor the patient. The patient needs to be on anticoagulation at some point if enteritis has resolved. Further recommendations per clinical course. We will continue to monitor the patient. Labs will be done on a regular basis, perhaps a clear liquid diet can be restarted today and we will follow up with stool studies. MD PORTILLO Spangler/MODL /[id number]
[2019-12-25] MEDS: PANTOPRAZOLE 40 MG 10ML VIAL IV SCH (10:00)
[2019-12-25] MEDS: HYDRALAZINE HCL 25 MG TAB PO SCH ×3 (10:15→20:51)
[2019-12-25] MEDS: ASPIRIN 81 MG CHEW TAB PO SCH (10:15)
[2019-12-25] MEDS: LOSARTAN POTASSIUM 100 MG TAB PO SCH (10:16)
[2019-12-25] MEDS: AMIODARONE HCL 200 MG TAB PO SCH (10:16)
[2019-12-25] MEDS: EZETIMIBE 10 MG TAB PO SCH (10:17)
[2019-12-25] MEDS: METOPROLOL TARTRATE 50 MG TAB PO SCH ×3 (10:17→20:52)
--- NOTE | 2019-12-25 14:02 | NUR ---
Rectal tube placed at the request of Dr. Flores due to almost continuos dark stool evacuation.
--- NOTE | 2019-12-25 17:57 | NUR ---
Both iv sites are infiltrated and discontinued Restart 22g in the antecubital space one try.
--- NOTE | 2019-12-25 19:20 | NUR ---
received report from day nurse. patient is resting comfortably in the bed. bedside rounds complete. bed is in lowest position and call light is within reach. will continue to monitor patient.
[2019-12-25] MEDS: SIMVASTATIN 80 MG TAB PO SCH (20:55)
[2019-12-26] VITALS (8 sets, daily range): BP systolic 116–157; BP diastolic 57–84
[2019-12-26] MEDS: ZOLPIDEM TARTRATE 5 MG TAB PO PRN (03:24)
--- NOTE | 2019-12-26 07:02 | NUR ---
bedside rounding complete. patient is resting comfortably in the bed. bed is in the lowest position and call light is within reach.
[2019-12-26 07:11] LABS: BASOPHILS % 0.5 % (0.0-1.0); EOSINOPHILS # (AUTO) 0.1 (0.0-0.4); EOSINOPHILS % 1.7 % (0.0-6.0); HEMATOCRIT 23.7 % (34.2-44.1); HEMOGLOBIN 7.9 g/dL (12.0-16.0); LYMPHOCYTES # (AUTO) 0.9 (1.0-3.2); LYMPHOCYTES % 13.6 % (18.0-39.1); MEAN CORPUSCULAR HEMOGLOBIN 31.6 pg (28-32); MEAN CORPUSCULAR HGB CONC 33.3 g/dL (31-35); MEAN CORPUSCULAR VOLUME 94.8 fL (81-99); MONOCYTES # (AUTO) 0.8 (0.2-0.8); MONOCYTES % 12.2 % (4.4-11.3); NEUTROPHILS # (AUTO) 4.5 (2.1-6.9); PLATELET COUNT 237 x10e3/uL (140-360); RED CELL DISTRIBUTION WIDTH 12.6 % (11.7-14.4)
[2019-12-26 07:29] LABS: ANION GAP 11.7 mmol/L (8-16); BLOOD UREA NITROGEN 20 mg/dL (7-26); BUN/CREATININE RATIO 29 (6-25); CALCIUM 7.8 mg/dL (8.4-10.2); CARBON DIOXIDE 19 mmol/L (22-29); CHLORIDE 106 mmol/L (98-107); CREATININE, SERUM 0.69 mg/dL (0.57-1.11); EST GLOMERULAR FILTRATION RATE > 60 ML/MIN (60-); GLUCOSE 62 mg/dL (74-118); POTASSIUM 3.7 mmol/L (3.5-5.1); SODIUM 133 mmol/L (136-145)
[2019-12-26] MEDS: METOPROLOL TARTRATE 50 MG TAB PO SCH ×3 (09:00→20:16)
[2019-12-26] MEDS: ASPIRIN 81 MG CHEW TAB PO SCH (09:00)
[2019-12-26] MEDS: LOSARTAN POTASSIUM 100 MG TAB PO SCH (09:00)
[2019-12-26] MEDS: AMIODARONE HCL 200 MG TAB PO SCH (09:00)
[2019-12-26] MEDS: HYDRALAZINE HCL 25 MG TAB PO SCH ×3 (09:00→20:16)
[2019-12-26] MEDS: PANTOPRAZOLE 40 MG 10ML VIAL IV SCH (09:00)
[2019-12-26] MEDS: EZETIMIBE 10 MG TAB PO SCH (09:00)
--- NOTE | 2019-12-26 11:04 | Progress Note ---
DATE: 12/26/2019 SUBJECTIVE: The patient is an 84-year-old female who came in with pulmonary embolism and atrial fibrillation, the patient's anticoagulation had to be stopped because the patient had coffee-ground emesis and also diarrhea that has been continuous. A Flexi-Seal was applied yesterday. The patient is probably scheduled for colonoscopy because of ongoing diarrhea. Otherwise, the patient is weak and also stool studies have been done, which have been pending. PHYSICAL EXAMINATION: VITAL SIGNS: Temperature is 96.5, pulse of 74, and blood pressure 148/73. HEENT: Normocephalic, atraumatic. Pupils are reactive. LUNGS: Decreased air entry into the lung bases. HEART: S1, S2 is normal. The patient is in sinus rhythm right now. ABDOMEN: Slightly distended. EXTREMITIES: No clubbing, no cyanosis, no edema. LABORATORY VALUES: White count today is 6.46, hemoglobin of a 7.9 and hematocrit 23.7. Sodium 133, potassium 3.7. The patient's BUN is 20, creatinine 0.69. Coags are normal. ASSESSMENT: Ms. Laura Storey with, 1. Pulmonary embolism. 2. Atrial fibrillation. 3. Ileus and ileitis. 4. Gastrointestinal bleed. 5. Debility. 6. Pleural effusion. 7. Ascites. 8. Enteritis. PLAN: Continue with rehydration and sodium is better for hyponatremia. We will continue with SCDs. Anticoagulations were held. Colonoscopy tomorrow. We will follow up with stool studies. The patient is currently off her anticoagulation. Further recommendation per clinical course. This has been explained to the patient. The patient is still very sick and needs to be still in the hospital setting. Stephan Flores MD [facility]/MODL /[id number]
[2019-12-26 11:44] LABS: % IRON SATURATION 9 % (15-50); IRON 26 ug/dL (50-170); TOTAL IRON BINDING CAPACITY 274 ug/dL (261-478); TRANSFERRIN 196 mg/dL (180-382)
--- NOTE | 2019-12-26 13:15 | NUR ---
aware of abdominal series results.
[2019-12-26] MEDS ORDERED: CITRATE OF MAGNESIA 300ML BOTTLE PO ONE ×2 (17:40→18:45)
--- NOTE | 2019-12-26 19:00 | NUR ---
Report given to oncoming nurse of patient's status. Resting in bed. Side rails upx2, call light within reach, bed alarm on. AAOX3 to time, person, place. Respirations even and unlabored. Denies pain
--- NOTE | 2019-12-26 19:25 | NUR ---
received report from day nurse.patient is resting comfortably in the bed. bed is in the lowest position and call galdamez is within reach. will continue to monitor patient.
[2019-12-26] MEDS ORDERED: BISACODYL 5 MG TAB EC PO ONE ×3 (20:00→21:00)
[2019-12-26] MEDS: SIMVASTATIN 80 MG TAB PO SCH (20:16)
[2019-12-26] MEDS: SODIUM CHLORIDE 0.9% 1000ML 1,000 ML IV SCH (21:13)
[2019-12-27] VITALS (8 sets, daily range): BP systolic 104–137; BP diastolic 53–68
[2019-12-27] MEDS ORDERED: BISACODYL 5 MG TAB EC PO ONE ×2 (00:15→01:15)
--- NOTE | 2019-12-27 03:28 | NUR ---
patient is complaining of not being able to void. patient connors been bladder scanned. 385cc of urine detected on bladder scan. notified. Received new order for insertion of cervantes catheter.
[2019-12-27 06:12] LABS: BASOPHILS # (AUTO) 0.1 (0.0-0.1); BASOPHILS % 0.4 % (0.0-1.0); EOSINOPHILS # (AUTO) 0.1 (0.0-0.4); EOSINOPHILS % 0.6 % (0.0-6.0); HEMATOCRIT 27.3 % (34.2-44.1); HEMOGLOBIN 8.9 g/dL (12.0-16.0); LYMPHOCYTES # (AUTO) 0.8 (1.0-3.2); LYMPHOCYTES % 7.4 % (18.0-39.1); MEAN CORPUSCULAR HEMOGLOBIN 31.7 pg (28-32); MEAN CORPUSCULAR HGB CONC 32.6 g/dL (31-35); MEAN CORPUSCULAR VOLUME 97.2 fL (81-99); MONOCYTES # (AUTO) 0.8 (0.2-0.8); MONOCYTES % 7.5 % (4.4-11.3); NEUTROPHILS # (AUTO) 9.1 (2.1-6.9); NEUTROPHILS % 81.4 % (38.7-80.0); PLATELET COUNT 261 x10e3/uL (140-360); RED BLOOD COUNT 2.81 x10e6/uL (3.6-5.1); RED CELL DISTRIBUTION WIDTH 12.7 % (11.7-14.4)
[2019-12-27 06:41] LABS: ANION GAP 11.5 mmol/L (8-16); BLOOD UREA NITROGEN 14 mg/dL (7-26); BUN/CREATININE RATIO 20 (6-25); CALCIUM 7.6 mg/dL (8.4-10.2); CARBON DIOXIDE 13 mmol/L (22-29); CHLORIDE 107 mmol/L (98-107); CREATININE, SERUM 0.69 mg/dL (0.57-1.11); EST GLOMERULAR FILTRATION RATE > 60 ML/MIN (60-); GLUCOSE 84 mg/dL (74-118); POTASSIUM 3.5 mmol/L (3.5-5.1); SODIUM 128 mmol/L (136-145)
--- NOTE | 2019-12-27 07:07 | NUR ---
report given to day nurse. patient is resting comfortably in bed. bed is in lowest position and call light is within reach.
--- NOTE | 2019-12-27 07:15 | NUR ---
RECDD PT UP IN BED DENIES PAIN,RECTAL TUBE IN PLACE,ALVAREZ TO BSD.
[2019-12-27] MEDS: HYDRALAZINE HCL 25 MG TAB PO SCH ×3 (08:30→21:00)
[2019-12-27] MEDS: PANTOPRAZOLE 40 MG 10ML VIAL IV SCH (08:30)
[2019-12-27] MEDS: LOSARTAN POTASSIUM 100 MG TAB PO SCH (08:31)
[2019-12-27] MEDS: AMIODARONE HCL 200 MG TAB PO SCH (08:31)
[2019-12-27] MEDS: EZETIMIBE 10 MG TAB PO SCH (08:32)
[2019-12-27] MEDS: METOPROLOL TARTRATE 50 MG TAB PO SCH ×3 (08:32→21:00)
[2019-12-27] MEDS: ASPIRIN 81 MG CHEW TAB PO SCH (09:00)
[2019-12-27] MEDS ORDERED: PROPOFOL IV EMULSION 10 MG/ML 50 ML VIAL ONE (14:35)
[2019-12-27] MEDS: SODIUM CHLORIDE 0.9% 1000ML 1,000 ML IV SCH (15:28)
--- NOTE | 2019-12-27 16:44 | NUR ---
pt in bed waiting to have egd /colonoscopy
--- NOTE | 2019-12-27 16:51 | NUR ---
pt transported to egd/colonoscopy via bed ,
--- NOTE | 2019-12-27 19:12 | Progress Note ---
DATE: 12/27/2019 SUBJECTIVE: An 84-year-old female who comes in with atrial fibrillation with RVR. The patient converted back to normal sinus rhythm, but however the patient developed enteritis and also small bowel obstruction. Currently, feeling better on Flexi-Seal at this time and also Sierra catheter for urinary retention. No chest pain. No shortness of breath. Positive for depression because of all things happening at this time. OBJECTIVE: VITAL SIGNS: Temperature is 96.9, respirations 16, blood pressure is 112/63, pulse oximetry of 95%. HEENT: Normocephalic and atraumatic. Pupils reactive to light and accommodation. CVS: S1 and S2. Regular. ABDOMEN: Nontender and nondistended. EXTREMITIES: No clubbing, no cyanosis, no edema. Sierra catheter to gravity. LABORATORY VALUES: Today's white count is 11.9, hemoglobin of 8.9, hematocrit 27.3. Chemistry; sodium 128, potassium of 3.5. BUN and creatinine 14 and 0.69. Iron was low. ASSESSMENT: Ms. Laura Storey 84-year-old female with: 1. Pulmonary embolism. 2. Atrial fibrillation. 3. Ileitis. 4. Gastrointestinal bleed. 5. Debility. 6. Pleural effusion. 7. Enteritis. PLAN: The patient has had a colonoscopy. We will continue to monitor the patient. The patient is off her anticoagulation. Risks and benefits explained to the patient. The patient will continue monitoring her white count. If needed, the patient will be back on antibiotics. Further recommendation per clinical course. The patient will stay in the hospital setting because of her ongoing problems and continuous problems. MD PORTILLO Spangler/MODL /[id number]
[2019-12-27] MEDS ORDERED: ONDANSETRON HCL INJ 2MG/ML 2ML 2 MG/ML VIAL ONE (19:57)
--- NOTE | 2019-12-27 20:05 | NUR ---
Back from EGD/colonoscopy. Alert and oriented. Denies pain at this time. No distress noted.
[2019-12-27 20:50] LABS: WBC,FECAL (FECAL LACTOFERRIN) POSITIVE (NEGATIVE)
[2019-12-27] MEDS: SIMVASTATIN 80 MG TAB PO SCH (21:00)
[2019-12-28] MEDS: ZOLPIDEM TARTRATE 5 MG TAB PO PRN (00:30)
--- NOTE | 2019-12-28 01:13 | Operative Report ---
DATE OF PROCEDURE: 12/27/2019 SURGEON: Garcia Stephens MD PROCEDURES: EGD with biopsies and colonoscopy with polypectomy and biopsies. INDICATION FOR EGD: History of melena. INDICATION FOR COLONOSCOPY: Diarrhea, persistent, history of bright red blood per rectum, and melena. MEDICATIONS: The patient was done under MAC, please see anesthesiologist's note. PROCEDURE IN DETAIL: With the patient in left lateral decubitus position, the flexible fiberoptic Olympus gastroscope was introduced into the esophagus under direct visualization without any difficulty. There was some patchy erythema noted in distal esophagus. The scope was then advanced with ease into the stomach traversing a moderate-sized hiatal hernia. Mucosa overlying the antrum and the body revealed some patchy erythema, [id number] edema and biopsies were obtained and sent to stain for H pylori. The pylorus was of normal contour and shape. It was intubated with ease and the scope was advanced all the way to the second portion of the duodenum. The scope was then withdrawn slowly and biopsies were obtained from the proximal second portion and duodenal bulb to rule out sprue. The scope was then withdrawn back into the stomach and retroflexed and a previously described hiatal hernia was also noted in the retroflexed position. The scope was then straightened out. It was subsequently withdrawn. The patient tolerated the procedure well. IMPRESSION: 1. Distal esophagitis, mild. 2. Moderate-sized hiatal hernia. 3. Gastritis, biopsied, biopsies sent to stain for H pylori. 4. Rule out sprue. PLAN: Follow up histology. Initiate Protonix 40 mg one p.o. q.a.m. before meals. The patient was then turned around after adequate lubrication of the anal canal. Flexible fiberoptic Olympus colonoscope was inserted into the rectum with ease and advanced all the way to the cecum. Mucosa overlying the cecum appeared to be within normal limits. The ileocecal valve was intubated and the scope was advanced into the terminal ileum. Biopsies were obtained. The scope was then withdrawn back into the colon. It was then withdrawn slowly. Mucosa overlying the ascending colon and transverse colon appeared to be within normal limits. One polyp was snared from the descending colon. The mucosa overlying the sigmoid and the rectum revealed some diffuse erythema, [id number] edema, and biopsies were obtained. Some diverticular disease was noted in the sigmoid colon. An approximately 1 cm ulcer was noted in the distal rectum without active bleeding or stigmata of recent hemorrhage. Biopsies were obtained. The scope was then retroflexed into the distal rectum and the rectum was on the smaller size and the area around the dentate line could not be optimally visualized. The scope was then straightened out. It was subsequently withdrawn after securing an adequate stool specimen that was sent for the appropriate stool studies. The patient tolerated the procedure well. IMPRESSION: 1. Descending colon polyp, hot snared. 2. Proctosigmoiditis, mild. Biopsies obtained. 3. Diverticulosis. 4. Rectal ulcer, biopsied. PLAN: Follow up histology. Follow up stool studies. Initiate GI soft diet. Garcia Stephens MD [facility] [place]/MODL /[id number] cc: Stephan Flores MD
[2019-12-28 04:00] VITALS: BP 111/57
[2019-12-28 06:15] LABS: BASOPHILS % 0.5 % (0.0-1.0); EOSINOPHILS # (AUTO) 0.2 (0.0-0.4); EOSINOPHILS % 2.5 % (0.0-6.0); HEMATOCRIT 24.4 % (34.2-44.1); HEMOGLOBIN 8.3 g/dL (12.0-16.0); LYMPHOCYTES # (AUTO) 0.9 (1.0-3.2); LYMPHOCYTES % 10.4 % (18.0-39.1); MEAN CORPUSCULAR HEMOGLOBIN 31.9 pg (28-32); MEAN CORPUSCULAR VOLUME 93.8 fL (81-99); MONOCYTES # (AUTO) 0.9 (0.2-0.8); MONOCYTES % 10.9 % (4.4-11.3); NEUTROPHILS # (AUTO) 6.1 (2.1-6.9); NEUTROPHILS % 73.5 % (38.7-80.0); PLATELET COUNT 268 x10e3/uL (140-360); RED CELL DISTRIBUTION WIDTH 12.9 % (11.7-14.4)
[2019-12-28 06:32] LABS: ANION GAP 7.2 mmol/L (8-16); BLOOD UREA NITROGEN 11 mg/dL (7-26); BUN/CREATININE RATIO 15 (6-25); CALCIUM 7.3 mg/dL (8.4-10.2); CARBON DIOXIDE 17 mmol/L (22-29); CHLORIDE 110 mmol/L (98-107); CREATININE, SERUM 0.72 mg/dL (0.57-1.11); EST GLOMERULAR FILTRATION RATE > 60 ML/MIN (60-); GLUCOSE 75 mg/dL (74-118); POTASSIUM 3.2 mmol/L (3.5-5.1); SODIUM 131 mmol/L (136-145)
[2019-12-28 08:28] VITALS: BP 141/66
[2019-12-28] MEDS: METOPROLOL TARTRATE 50 MG TAB PO SCH ×3 (08:58→21:00)
[2019-12-28] MEDS: EZETIMIBE 10 MG TAB PO SCH (08:58)
[2019-12-28] MEDS: ASPIRIN 81 MG CHEW TAB PO SCH (08:58)
[2019-12-28] MEDS: AMIODARONE HCL 200 MG TAB PO SCH (08:58)
[2019-12-28] MEDS: LOSARTAN POTASSIUM 100 MG TAB PO SCH (08:58)
[2019-12-28] MEDS: PANTOPRAZOLE 40 MG 10ML VIAL IV SCH (08:59)
[2019-12-28] MEDS: HYDRALAZINE HCL 25 MG TAB PO SCH ×3 (08:59→21:00)
[2019-12-28] MEDS: SODIUM CHLORIDE 0.9% 1000ML 1,000 ML IV SCH (11:30)
[2019-12-28 11:33] LABS: C DIFFICILE TOXIN A&B AMP PROB NEGATIVE (NEGATIVE)
[2019-12-28 12:16] VITALS: BP 121/54
--- NOTE | 2019-12-28 14:45 | NUR ---
Nutrition Screen Note RD Recommendation for Physician: - Recommend liberalizing diet to Regular Plan of Care: RD following, monitoring for tolerance and adequacy Nutrition reason for involvement: LOS Primary Diagnose(s): pneumonia PMH: HTN, HLD, Afib, abdominal pain Ht: 62 in Wt: 144.31 lb BMI: 26.4 kg/m2 IBW: [address] Assessment: (12/28) 84 YOF admitted for pneumonia, pt seen today for LOS. 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 Pt reports being frustrated with GI Soft restriction as she can not having any fresh fruit, fresh vegetables, or anything with black pepper. Pt reports diarrhea has resolved and denies any additional GI distress. Chart reviewed. Labs and meds reviewed. Will continue to monitor. Current Diet: GI Soft Malnutrition Evaluation (12/28/19) The patient does not meet criteria for a specified degree of malnutrition at this time. Will re-evaluate at follow-up as appropriate. Diet Education Needs Assessment: Diet education not indicated, on temporary/transitional diet. Diet tolerance: tolerating po Nutrition Care Level: low Signed: Rizwana Santana RD, LD, [facility]
[2019-12-28 17:21] VITALS: BP 118/56
--- NOTE | 2019-12-28 17:39 | NUR ---
PT UP IN BED NO DISTRESS NOTED,DENIES PAIN,ALVAREZ TO BSD STAN URINE
--- NOTE | 2019-12-28 19:20 | NUR ---
Bedside rounds completed with morning nurse. Pt alert and oriented to name, lying in bed HOB 45 degrees. Denies pain at this time. Family at bedside. Call light within reach. Will continue to monitor.
[2019-12-28 21:00] VITALS: BP 126/58
[2019-12-28] MEDS: SIMVASTATIN 80 MG TAB PO SCH (21:00)
--- NOTE | 2019-12-28 21:49 | Progress Note ---
DATE: 12/28/2019 SUBJECTIVE: An 84-year-old female, who comes in with pulmonary embolism, atrial fibrillation, complains of generalized fatigue. Physical therapy has been ordered today. No chest pain. No shortness of breath. The patient had a colonoscopy yesterday. shows distal esophagitis, moderate-sized hiatal hernia, gastritis and colonoscopy showed descending colon polyps, proctosigmoiditis, and diverticulosis. Rectal ulcers, which were biopsied. PHYSICAL EXAMINATION: VITAL SIGNS: Temperature is 97.3, pulse is 66, respirations 20, blood pressure is 118/56, pulse oximetry of 93%. HEENT: Normocephalic and atraumatic. Pupils reactive to light and accommodation. CVS: S1 and S2 normal. Regular rate and rhythm. ABDOMEN: Nontender, nondistended. EXTREMITIES: No clubbing, no cyanosis, no edema. LABORATORY DATA: White count has come down to 8.9, hemoglobin of 8.3, hematocrit of 24.4. Chemistry shows sodium 131, potassium 3.2, BUN of 11, creatinine 0.72. TIBC 274,iron was 26. ASSESSMENT: Ms. Laura Storey with: 1. Pulmonary embolism. 2. Atrial fibrillation. 3. Rectal ulcer. 4. Gastrointestinal bleeding. 5. Gastritis. 6. Debility. 7. Pleural effusion. PLAN: Continue with the current regimen. Physical therapy will be entertained. The patient needs to be restarted back on her Xarelto tomorrow. Further recommendation per clinical course. We will continue to monitor the patient. Discharge planning anticipate in 1-2 days after the physical therapy has evaluated the patient. MD PORTILLO Spangler/MODL /[id number]
[2019-12-28 23:30] VITALS: BP 120/62
[2019-12-29] VITALS (7 sets, daily range): BP systolic 103–167; BP diastolic 53–93
[2019-12-29 06:44] LABS: ANION GAP 9.2 mmol/L (8-16); BLOOD UREA NITROGEN 10 mg/dL (7-26); BUN/CREATININE RATIO 14 (6-25); CALCIUM 7.6 mg/dL (8.4-10.2); CARBON DIOXIDE 18 mmol/L (22-29); CHLORIDE 109 mmol/L (98-107); CREATININE, SERUM 0.71 mg/dL (0.57-1.11); EST GLOMERULAR FILTRATION RATE > 60 ML/MIN (60-); GLUCOSE 99 mg/dL (74-118); POTASSIUM 3.2 mmol/L (3.5-5.1); SODIUM 133 mmol/L (136-145)
--- NOTE | 2019-12-29 06:50 | NUR ---
DR. Flores ordered a consult for rehab with Dr. Hyatt.
[2019-12-29] MEDS ORDERED: POTASSIUM CHLORIDE 20 MEQ TAB CR PO ONE (08:00)
[2019-12-29] MEDS: HYDRALAZINE HCL 25 MG TAB PO SCH ×3 (08:56→21:00)
[2019-12-29] MEDS: AMIODARONE HCL 200 MG TAB PO SCH (08:57)
[2019-12-29] MEDS: ASPIRIN 81 MG CHEW TAB PO SCH (08:57)
[2019-12-29] MEDS: LOSARTAN POTASSIUM 100 MG TAB PO SCH (08:58)
[2019-12-29] MEDS: APIXABAN 5 MG TABLET PO SCH ×2 (08:58→16:41)
[2019-12-29] MEDS: METOPROLOL TARTRATE 50 MG TAB PO SCH ×3 (08:59→21:20)
[2019-12-29] MEDS: EZETIMIBE 10 MG TAB PO SCH (08:59)
[2019-12-29] MEDS: PANTOPRAZOLE 40 MG 10ML VIAL IV SCH (09:02)
--- NOTE | 2019-12-29 10:26 | Progress Note ---
DATE: 12/29/2019 SUBJECTIVE: An 84-year-old female comes in with atrial fibrillation, pulmonary embolism, and then developed ileitis, gastritis, and rectal ulcer. The patient is currently feeling better. Physical Therapy walked her, walked [facility] through the gabriel and was very weak and debilitated. No chest pains noted. No shortness of breath. The patient is currently not on any anticoagulation and on pantoprazole. OBJECTIVE: VITAL SIGNS: Temperature is 97.4, pulse of 62, respirations of 16, blood pressure is 150/70, and pulse ox of 96%. HEENT: Normocephalic and atraumatic. Pupils are reactive to light and accommodation. CVS: S1 and S2 normal. Regular rhythm. ABDOMEN: Nontender and nondistended. EXTREMITIES: No clubbing, no cyanosis, no edema. LABORATORY DATA: White count is 8.29 yesterday, hemoglobin is 8.3, and hematocrit 24.4. Sodium today is 132, potassium is 3.2, BUN of 10, and creatinine 0.71. ASSESSMENT: Ms. Laura Storey with: 1. Pulmonary embolus. 2. Atrial fibrillation. 3. Rectal ulcer. 4. Gastritis. 5. Debility. 6. Pleural effusion. PLAN: 1. The patient's disposition would be to go to rehab facility. We will consult Dr. Hyatt for possible transfer to rehab at [place], restart apixaban. 2. Continue monitoring the patient's hemoglobin with blood loss anemia and continue physical therapy. Further recommendation per clinical course. We will continue monitoring the patient's lytes and also replace potassium to keep it above 4. MD PORTILLO Spangler/KATHIAL /[id number]
[2019-12-29] MEDS: SODIUM CHLORIDE 0.9% 1000ML 1,000 ML IV SCH (12:07)
--- NOTE | 2019-12-29 14:24 | NUR ---
CM MET W THE PT AT THE BEDSIDE TO DISCUSS INPT REHAB. PT STATES SHE DID SPEAK W THE DOC ABOUT INPT REHAB. DISCUSSED CHOICE. STATES SHE AGREES W [facility]. CHOICE LETTER WAS SIGNED AND COOY TO PT AND COPY TO THE CHART. PT STATES SHE WOULD LIKE TO DISCUSS W HER SON BEFORE TRANSFERRING. INFORMED THE PT THE DOC WILL HAVE TO OK THE TRANSFER FIRST. MOT WAS INITIATED.
--- NOTE | 2019-12-29 14:27 | NUR ---
CALL TO [facility] TO INFORM OF REFERRAL; JUAN C. NO ANSWER. LEFT VM W CONTACT INFO.
--- NOTE | 2019-12-29 19:13 | NUR ---
PATIENT IN STABLE CONDITION WITH NO S/S OF RESPIRATORY DISTRESS. NO PAIN VOICED. TELEMETRY APPLIED. ALVAREZ INTACT. SON PRESENT IN ROOM. BED ALARM APPLIED. CALL LIGHT IS WITHIN REACH, PATIENT INSTRUCTED TO CALL FOR ASSISTANCE NEEDED. BEDSIDE REPORT GIVEN TO ONCOMING NURSE.
--- NOTE | 2019-12-29 19:25 | NUR ---
Patient visited in room during nursing rounds. Patient alert and oriented x3. Ambulatory in room with assist using walker prn. Sierra catheter in place for urinary retention draining light hailey urine. On IVF (NS at 50ml/hr). Call galdamez within reach. Will monitor pt closely.
[2019-12-29] MEDS: SIMVASTATIN 80 MG TAB PO SCH (21:20)
[2019-12-30] VITALS (8 sets, daily range): BP systolic 114–169; BP diastolic 62–89
[2019-12-30] MEDS: HYDRALAZINE HCL 25 MG TAB PO SCH ×4 (00:30→21:05)
--- NOTE | 2019-12-30 01:45 | NUR ---
Nurse (Cuate) and Worm Packer ([place]) explained to patient that she will me moved to another Rm (286) since another patient will need to occupy room 299 for isolation purposes. Pt agreed to plan.
--- NOTE | 2019-12-30 02:00 | NUR ---
Patient escorted via hospital bed and temporarily parked at hallway while EVS cleans room 286. Pt assured that room 286 will be cleaned thoroughly.
--- NOTE | 2019-12-30 03:00 | NUR ---
Dr. Ana Stephens came to the unit and spoke with patient at the [facility]. MD ordered to change diet from GI soft to Regular diet.
--- NOTE | 2019-12-30 04:00 | NUR ---
Patient was safely transferred to room 286 after the thorough cleaning of room. Pt in stable condition.
[2019-12-30 06:16] LABS: BASOPHILS % 0.4 % (0.0-1.0); EOSINOPHILS # (AUTO) 0.1 (0.0-0.4); EOSINOPHILS % 1.2 % (0.0-6.0); HEMATOCRIT 27.7 % (34.2-44.1); HEMOGLOBIN 9.3 g/dL (12.0-16.0); LYMPHOCYTES % 10.7 % (18.0-39.1); MEAN CORPUSCULAR HEMOGLOBIN 31.2 pg (28-32); MEAN CORPUSCULAR HGB CONC 33.6 g/dL (31-35); MONOCYTES # (AUTO) 0.9 (0.2-0.8); MONOCYTES % 9.6 % (4.4-11.3); NEUTROPHILS # (AUTO) 7.3 (2.1-6.9); NEUTROPHILS % 76.1 % (38.7-80.0); PLATELET COUNT 370 x10e3/uL (140-360); RED BLOOD COUNT 2.98 x10e6/uL (3.6-5.1); RED CELL DISTRIBUTION WIDTH 13.2 % (11.7-14.4)
[2019-12-30 06:51] LABS: ALANINE AMINOTRANSFERASE 26 IU/L (0-55); ALBUMIN 2.8 g/dL (3.5-5.0); ALBUMIN/GLOBULIN RATIO 1.1 (0.8-2.0); ALKALINE PHOSPHATASE 60 IU/L (40-150); ANION GAP 8.5 mmol/L (8-16); BLOOD UREA NITROGEN 8 mg/dL (7-26); BUN/CREATININE RATIO 12 (6-25); CARBON DIOXIDE 19 mmol/L (22-29); CHLORIDE 105 mmol/L (98-107); CREATININE, SERUM 0.65 mg/dL (0.57-1.11); EST GLOMERULAR FILTRATION RATE > 60 ML/MIN (60-); GLUCOSE 103 mg/dL (74-118); MAGNESIUM 1.7 MG/DL (1.3-2.1); POTASSIUM 3.5 mmol/L (3.5-5.1); SODIUM 129 mmol/L (136-145)
--- NOTE | 2019-12-30 07:15 | NUR ---
PATIENT IN BED WATCHING TV, NO DISTRESS NOTED. ALVAREZ CATHETER DRAINING CLEAR YELLOW URINE. BED IN LOWER POSITION, CALL LIGHT AT REACH.
[2019-12-30] MEDS: SODIUM CHLORIDE 0.9% 1000ML 1,000 ML IV SCH ×2 (07:57→23:30)
[2019-12-30] MEDS: PANTOPRAZOLE SOD 40 MG TABEC PO SCH (07:57)
[2019-12-30] MEDS: AMIODARONE HCL 200 MG TAB PO SCH (09:14)
[2019-12-30] MEDS: ASPIRIN 81 MG CHEW TAB PO SCH (09:14)
[2019-12-30] MEDS: LOSARTAN POTASSIUM 100 MG TAB PO SCH (09:15)
[2019-12-30] MEDS: APIXABAN 5 MG TABLET PO SCH ×2 (09:15→17:19)
[2019-12-30] MEDS: EZETIMIBE 10 MG TAB PO SCH (09:15)
[2019-12-30] MEDS: METOPROLOL TARTRATE 50 MG TAB PO SCH ×3 (09:15→21:12)
--- NOTE | 2019-12-30 11:28 | NUR ---
Spoke to pt at bedside. Pt stated that she does not want to go to inpatient rehab anymore. States she would prefer to go home with home health. States her son will be with her for a few days after discharge to assist with any needs. MENDOZA informed Dr. Flores that pt does not want inpatient rehab and asked for order for home health. Awaiting response. MENDOZA also informed Charlotte Silva with [facility] that pt no longer wants to go to rehab.
--- NOTE | 2019-12-30 13:35 | NUR ---
Received order for home health. Spoke with pt at bedside. She states to use any home health company that will take her insurance. Choice letter signed for [facility], [facility], and [facility]. Copy to pt with each company's contact information. Informed pt that referral will be sent to [facility] first. CM asked that pt call them if she does not hear from them within 24 hrs of discharge. IMM letter delivered and discussed with pt. She verbalized understanding. Signed copy placed in chart. Copy to pt. Referral for home health faxed to [facility] Kymberly Stearns with [facility] was notified of referral.
--- NOTE | 2019-12-30 15:16 | NUR ---
PATIENT AMBULATED IN ROOM WITH PHYSICAL THERAPY. BACK TO CHAIR WITH CALL LIGHT AT REACH.
[2019-12-30] MEDS: ONDANSETRON HCL 4 MG ORAL DISINTEGRATING TAB PO PRN (17:58)
--- NOTE | 2019-12-30 18:00 | Progress Note ---
DATE: 12/30/2019 SUBJECTIVE: The patient is an 84-year-old female, who comes in with pulmonary embolism and atrial fibrillation. The patient's atrial fibrillation is resolved, no complaints. The patient's stool cultures are negative. Diarrhea has dissipated. No chest pain. No shortness of breath. Fatigue has intensified, and the patient is very weak. OBJECTIVE: VITAL SIGNS: Temperature is 96.9, pulse of 61, respirations of 18, blood pressure of 114/62, and pulse oximetry of 95%. HEENT: Normocephalic, atraumatic. Pupils are reactive to light and accommodation. CVS: S1, S2, normal. Regular rate and rhythm. ABDOMEN: Nontender, nondistended. EXTREMITIES: No clubbing, no cyanosis, no edema. LABORATORY STUDIES: White count 9.6, hemoglobin of 9.3, and hematocrit of 27.7. Chemistry shows sodium of 129, potassium of 3.5, BUN of 18, creatinine 0.65, and calcium is 8. Microbiology as noted above. Negative stool cultures. Blood cultures have been negative. ASSESSMENT: Ms. Laura Storey with: 1. Pulmonary embolism. 2. Atrial fibrillation. 3. Rectal ulcer. 4. Debility. 5. Pleural effusion. 6. Debility. PLAN: The patient wants to go home. Suggested SNF and/or rehab. The patient is refusing it currently. Home health will be ordered. We will continue to monitor the patient. Further recommendation per clinical course. MD PORTILLO Spangler/MODL /[id number]
[2019-12-30] MEDS: SIMVASTATIN 80 MG TAB PO SCH (21:13)
[2019-12-31] VITALS: BP 159/71
[2019-12-31 04:00] VITALS: BP 127/76
--- NOTE | 2019-12-31 07:10 | NUR ---
Patient endorsed to next shift for continuity of care.
[2019-12-31 07:59] VITALS: BP 167/75
[2019-12-31 08:06] VITALS: BP 167/75
[2019-12-31] MEDS: PANTOPRAZOLE SOD 40 MG TABEC PO SCH (08:29)
[2019-12-31] MEDS: ASPIRIN 81 MG CHEW TAB PO SCH (08:32)
[2019-12-31] MEDS: APIXABAN 5 MG TABLET PO SCH ×2 (08:32→16:48)
[2019-12-31] MEDS: HYDRALAZINE HCL 25 MG TAB PO SCH ×2 (08:32→15:00)
[2019-12-31] MEDS: AMIODARONE HCL 200 MG TAB PO SCH (08:32)
[2019-12-31] MEDS: EZETIMIBE 10 MG TAB PO SCH (08:34)
[2019-12-31] MEDS: ONDANSETRON HCL 4 MG ORAL DISINTEGRATING TAB PO PRN (08:35)
[2019-12-31] MEDS: LOSARTAN POTASSIUM 100 MG TAB PO SCH (08:35)
[2019-12-31] MEDS: METOPROLOL TARTRATE 50 MG TAB PO SCH ×2 (08:35→15:00)
--- NOTE | 2019-12-31 11:42 | NUR ---
CALL PLACED OUT TO DR. DIAZ - NO ANSWER, VOICE MESSAGE LEFT REGARDING ORDER TO DC ALVAREZ AND AN ORDER FOR DISCHARGE. AWAITING CALLBACK.
[2019-12-31 12:05] VITALS: BP 124/59
--- NOTE | 2019-12-31 13:28 | NUR ---
ALVAREZ DC AT 1325- DIAPER APPLIED. PATIENT IS AWARE TO NOTIFY STAFF MEMBER WHEN NEEDING TO VOID.
[2019-12-31 16:15] VITALS: BP 146/62
--- NOTE | 2019-12-31 17:02 | NUR ---
PATIENT VOIDED IN TOILET
[2019-12-31] MEDS ORDERED: AMIODARONE HCL200 MG PO (18:07)
--- NOTE | 2019-12-31 18:57 | Progress Note ---
DATE: 12/31/2019 SUBJECTIVE: The patient is here for acute pulmonary embolism, atrial fibrillation, hypertension, history of colitis, rectal bleed, and also for GI bleed. The patient is currently feeling better, wants to go home with physical therapy. SNF was evaluated, the patient did not want rehab at that time. The patient has decided to go home with her son. OBJECTIVE: VITAL SIGNS: Temperature is 97.4, pulse of 63, respirations of 18, blood pressure is 146/62, pulse oximetry of 97%. HEENT: Normocephalic and atraumatic. Pupils reactive to light and accommodation. CVS: S1 and S2 normal. Regular rate and rhythm. ABDOMEN: Nontender and nondistended. EXTREMITIES: No clubbing, no cyanosis, no edema. LABORATORY VALUES: None done today. Chemistries and labs have been normal since . The patient has baseline hyponatremia, which is trending around 125-130. ASSESSMENT: Ms. Laura Storey with: 1. Pulmonary embolism. 2. Atrial fibrillation. 3. Debility. 4. Pleural effusion. 5. Rectal ulcers. PLAN: Okay to discharge home. The patient will be discharged on all her current medication includes of Eliquis 2.5 mg twice a day. Followup with me in about a week's time. Physical therapy rehabilitation with Home Health. Strict ER warnings. The patient to follow up with Dr. Stephens, Dr. Mckoy and also Dr. Esposito. MD SHANNAN SpanglerJ/MODL /[id number]
--- NOTE | 2019-12-31 19:45 | NUR ---
PATIENT DISCHARGE HOME WITH HOME HEALTH- PATIENT OFF THE UNIT AT 1843 PER WHEELCHAIR ACCOMPANIED BY STAFF MEMBER TO THE FRONT LOBBY. PATIENT IN STABLE CONDITION WITH NO S/S OF RESPIRATORY DISTRESS. NO PAIN VOICED. IV REMOVED WITH TIP INTACT. DISCHARGE TEACHING, INSTRUCTIONS, AND MEDICATION GIVEN TO THE PATIENT. ALL PERSONAL ITEMS TAKEN WITH THE PATIENT AND HER SON.
== END 2019-12-31 18:43 | disposition home or self-care (01) | DRG 175 ==
LOC: ER 01:59 → ERHOLD 06:20 → MED/SURG3 16:08 → OBSVTOIN 12-22 08:56 → MED/SURG3 12-30 03:25
PROVIDERS: ADMIT Family Medicine; ATTEND Family Medicine
PROC: 0DBP8ZX Excision of Rectum, Via Natural or Artificial Opening Endoscopic, Diagnostic (ICD-10-PCS; 2019-12-27)
PROC: 0DB98ZX Excision of Duodenum, Via Natural or Artificial Opening Endoscopic, Diagnostic (ICD-10-PCS; 2019-12-27)
PROC: 0DB78ZZ Excision of Stomach, Pylorus, Via Natural or Artificial Opening Endoscopic (ICD-10-PCS; principal; 2019-12-27 18:07)
PROC: 0DBM8ZZ Excision of Descending Colon, Via Natural or Artificial Opening Endoscopic (ICD-10-PCS; 2019-12-27 18:07)
PROC: 0DBN8ZZ Excision of Sigmoid Colon, Via Natural or Artificial Opening Endoscopic (ICD-10-PCS; 2019-12-27 18:07)
DX: I26.99 Other pulmonary embolism without acute cor pulmonale (principal); I50.23 Acute on chronic systolic (congestive) heart failure; K62.6 Ulcer of anus and rectum; R18.8 Other ascites; I11.0 Hypertensive heart disease with heart failure; Z85.3 Personal history of malignant neoplasm of breast; N94.89 Other specified conditions associated with female genital organs and menstrual cycle; R53.81 Other malaise; R91.8 Other nonspecific abnormal finding of lung field; E78.5 Hyperlipidemia, unspecified; I48.0 Paroxysmal atrial fibrillation; Z79.01 Long term (current) use of anticoagulants; K44.9 Diaphragmatic hernia without obstruction or gangrene; K29.70 Gastritis, unspecified, without bleeding
CPT/HCPCS: 36415; 43239; 45380; 45385; 71046; 71260; 74018; 74022; 74174; 74177; 80048; 80053; 81001; 82550; 82553; 83540; 83630; 83735; 83880; 83993; 84443; 84466; 84484; 85025; 85379; 85610; 85730; 87040; 87045; 87177; 87328; 87493; 88305; 88312; 93005; 93306; 93970; 96361; 97139; 99285; G0378; J0456; J0696; J1650; J2270; J2405; J7030; J7050; Q0162; Q9967

== ENCOUNTER 2020-05-11 19:00 | Inpatient (IN) | payer MEDICARE, OTHER ==
[~2020-05-11] VITALS: Ht 160 cm; Wt 66.3 kg
[~2020-05-11 19:00] MED LIST changes: +AMIODARONE HCL200 MG PO
[2020-05-11 20:00] VITALS: BP 109/72
[2020-05-11 20:30] VITALS: BP 109/72
--- NOTE | 2020-05-11 20:30 | NUR ---
Patient received from stretcher from ER. AAO x 4. Patient had no complaints of pain. Respirations even and non-labored. Admission history obtained. Initial physical assessment performed. Bilateral lower extremities erythematous/edematous. Safety measures implemented. Patient oriented to room, call light and plan of care. Patient instructed to call for assistance when needed. Call light within reach.
[2020-05-11 20:47] LABS: BASOPHILS % 0.3 % (0.0-1.0); EOSINOPHILS % 0.1 % (0.0-6.0); HEMATOCRIT 38.7 % (34.2-44.1); LYMPHOCYTES # (AUTO) 0.6 (1.0-3.2); LYMPHOCYTES % 8.3 % (18.0-39.1); MEAN CORPUSCULAR HEMOGLOBIN 24.9 pg (28-32); MEAN CORPUSCULAR VOLUME 80.3 fL (81-99); MONOCYTES # (AUTO) 0.8 (0.2-0.8); MONOCYTES % 11.1 % (4.4-11.3); NEUTROPHILS # (AUTO) 5.5 (2.1-6.9); NEUTROPHILS % 79.8 % (38.7-80.0); PLATELET COUNT 138 x10e3/uL (140-360); RED BLOOD COUNT 4.82 x10e6/uL (3.6-5.1); RED CELL DISTRIBUTION WIDTH 21.2 % (11.7-14.4)
[2020-05-11 21:08] LABS: ALBUMIN 2.9 g/dL (3.5-5.0); ALBUMIN/GLOBULIN RATIO 0.9 (0.8-2.0); ANION GAP 16.2 mmol/L (8-16); CALCIUM 8.5 mg/dL (8.4-10.2); CREATININE, SERUM 1.02 mg/dL (0.57-1.11); POTASSIUM 4.2 mmol/L (3.5-5.1)
[2020-05-11] MEDS: SODIUM CHLORIDE 0.9% 1000ML 1,000 ML IV SCH (22:30)
--- NOTE | 2020-05-11 23:20 | NUR ---
Dr. Garrido notified of lab results. New orders received.
--- NOTE | 2020-05-11 23:40 | NUR ---
Urine specimen sent to lab for analysis.
[2020-05-11 23:51] LABS: BILIRUBIN,URINE NEGATIVE (NEGATIVE); CLARITY,URINE SL CLOUDY (CLEAR); COLOR,URINE YELLOW (YELLOW); KETONES,URINE NEGATIVE (NEGATIVE); LEUKOCYTE ESTERASE ,URINE NEGATIVE (NEGATIVE); NITRITE,URINE NEGATIVE (NEGATIVE); PROTEIN,URINE DIPSTICK NEGATIVE (NEGATIVE); URINE UROBILINOGEN 0.2 mg/dL (0.2 - 1)
[2020-05-11] MEDS ORDERED: ELIQUIS2.5 MG PO (23:52)
[2020-05-11 23:57] LABS: BACTERIA,URINE FEW /HPF; EPITHELIAL CELLS,URINE FEW /LPF; RBC,URINE 0-5 /HPF (0-5); TRANSITIONAL EPI CELLS,URINE FEW
[2020-05-12] VITALS (7 sets, daily range): BP systolic 96–127; BP diastolic 71–89
--- NOTE | 2020-05-12 06:22 | NUR ---
Dr. Lugo notified and aware of "Routine Consult".
[2020-05-12 06:24] LABS: ANION GAP 14.1 mmol/L (8-16); CALCIUM 8.6 mg/dL (8.4-10.2); CREATININE, SERUM 0.89 mg/dL (0.57-1.11); POTASSIUM 4.1 mmol/L (3.5-5.1)
[2020-05-12 06:47] LABS: BLOOD UREA NITROGEN 24 mg/dL (7-26); GLUCOSE 97 mg/dL (74-118); OSMOLALITY,SERUM 265 mOsm/kg (278-305); SODIUM 130 mmol/L (136-145)
--- NOTE | 2020-05-12 07:00 | NUR ---
BEDSIDE SHIFT REPORT RECEIVED FROM THE HOSPITAL SUPERINTENDENT RN. EDUCATED PT ABOUT FALL PRECAUTIONS. PT VERBALIZED UNDERSTANDING. CALL LIGHT WITH IN EASY REACH. BED IS LOW AND LOCKED. SIDE RAILS X2. BED ALARM IS ON. PT DENIES NEEDS AT THIS TIME.
--- NOTE | 2020-05-12 07:00 | NUR ---
Walking rounds done. Patient resting comfortably. BSSR given to oncoming nurse regarding patient's status.
--- NOTE | 2020-05-12 08:00 | NUR ---
PAGED DR. DIAZ REGARDING PT HOME MEDS RENEWAL. NO ORDERS RECEIVED AT THIS TIME
[2020-05-12 09:24] LABS: CREATININE,URINE RANDOM 75.47 mg/dL (47-110); TOTAL PROTEIN, URINE 10.7 mg/dL (1-14)
[2020-05-12] MEDS ORDERED: LORAZEPAM 0.5 MG TAB PO PRN (09:30)
--- NOTE | 2020-05-12 12:10 | NUR ---
PT OFF TO RADIOLOGY IN SAFE CONDITION.
[2020-05-12] MEDS ORDERED: IOPAMIDOL 370 MG/ML 200 ML INFUS..BTL INJ ONE (12:15)
[2020-05-12] MEDS ORDERED: SODIUM CHLORIDE 0.9% 50ML 50 ML ONE (12:15)
--- NOTE | 2020-05-12 12:45 | Diagnostic Imaging Report ---
X-ray chest AP portable Comparison: 12/25/2019 History: Overload Findings: Central airways unremarkable. Heart size difficult to evaluate but likely there is cardiomegaly. Large right pleural effusion. No significant left pleural effusion. No pneumothorax. Compressive atelectasis of the majority of the right lung. Increased opacity of the remainder of the aerated right lung with air bronchograms. This could represent compressive atelectasis versus pneumonia. Findings of interstitial pulmonary edema in the left lung. Multiple healed rib fractures in the right rib cage posteriorly. Surgical rfuina in the left axilla and breast. Degenerative changes of the thoracic spine. Impression: Large right pleural effusion with compressive atelectasis and/or pneumonia of the right lung. Interstitial edema in the aerated left lung. Cardiomegaly. The findings suggest congestive heart failure. Signed by: Silvestre Mcginnis MD on 05/12/2020 12:42 PM
--- NOTE | 2020-05-12 13:00 | NUR ---
PT IS BACK TO THE UNIT FROM RADIOLOGY. PT DENIES NEEDS AT THIS TIME.
--- NOTE | 2020-05-12 14:41 | Diagnostic Imaging Report ---
CT of the chest. Comparison: None Clinical History: Anasarca Technique: Helical CT scan of the chest abdomen and pelvis was performed from just above the thoracic inlet through the proximal thighs. Intravenous contrast administration was utilized. Coronal and sagittal reconstructions were generated from the raw data. Multiple images were submitted for interpretation. This exam was performed according to our departmental dose-optimization program which includes automated exposure control, adjustment of the mA and/or kV according to patient size Discussion: Lung almonte: There is presence of bilateral pleural effusions, right much more than left with only a small part of the right lung upper lobe is aerated. The remainder of the right lung is atelectatic. The left lung is relatively aerated. There is presence of a 10 mm nodule in the left lung apex. It seems to be associated with apical pleura. There is presence of subsegmental atelectasis in the left lung upper lobe posteriorly. There is also presence of patchy hazy groundglass opacities in the left lung. Other focal disease is seen in the left lung. The right upper lobe has 4.6 mm nodule pleural-based peripheral. The remainder of the right lung is not well-visualized because of the atelectasis. There is no evidence of pulmonary embolism. Peripheral airways are unremarkable. Central airways: Unremarkable Pleural spaces and pleura: Large low density effusion on the right side and a smaller effusion on the left side as described above. Pulmonary alanna: Normal. Also see below. Mediastinum: Multiple calcified lymph nodes in the subcarinal location and both pulmonary alanna suggestive of prior granulomatous disease. Cardiac chambers and pericardium: Cardiomegaly. Coronary artery calcification. Possible coronary artery stent. No pericardial effusion. There is significant reflux of contrast medium into the IVC and hepatic veins suggesting elevated right heart pressures for example with right heart failure. Systemic great vessels: Atherosclerotic calcification otherwise unremarkable Central pulmonary vessels: Unremarkable Thyroid: Grossly unremarkable. Not but well-visualized because of the artifact from contrast in the right neck and upper chest veins. Lymph nodes: As above. Azygos vein: Enlarged with reflux of contrast. The esophagus: Normal. Thoracic duct: Unremarkable Osseous structures: Degenerative changes Body wall: Anasarca. Left axillary metallic rufina suggestive of prior left axillary lymph node dissection. Breasts: Unremarkable Axilla: As above Lower neck: Unremarkable. Please see details of abdomen and a separate CT report. Impression: Cardiomegaly with signs of right heart failure. Large right and a smaller left pleural effusion with atelectasis of the right lung. The anasarca is likely explained on the basis of heart failure. Old pulmonary granulomatous disease. Signed by: Silvestre Mcginnis MD on 05/12/2020 2:38 PM
--- NOTE | 2020-05-12 15:04 | Diagnostic Imaging Report ---
CT of the abdomen and pelvis. Comparison: 12/24/2019 Clinical History: Anasarca Technique: Helical CT scan of the abdomen and pelvis was performed. Intravenous contrast administration was utilized. Oral contrast administration was not utilized. Coronal and sagittal reconstructions were generated from the raw data. Multiple images were submitted for interpretation. This exam was performed according to our departmental dose-optimization program which includes automated exposure control, adjustment of the mA and/or kV according to patient size. Discussion: The CT was performed as a part of a CT chest abdomen and pelvis. There are chest part is reported separately. Abdominal imaging was performed in the arterial phase unfortunately. This decreases the sensitivity to detect liver lesions. Liver: There is reflux of contrast medium into the IVC and hepatic veins. This is suggestive of elevation of the right heart pressures. There is no other focal liver lesion. Spleen: Unremarkable Pancreas: Unremarkable Biliary tree and gallbladder: Unremarkable Adrenal glands: Unremarkable Kidneys and ureters: Small bilateral kidneys with cortical thinning. Otherwise Unremarkable Vasculature: Atherosclerotic calcification of aorta and its major branches. Otherwise unremarkable. Infrarenal IVC is not opacified with contrast. Number there is no evidence of a thrombus or stenosis involving the iliotibial system. Lymph nodes: No significant abdominal or pelvic lymphadenopathy. Bowel: Unremarkable Pelvis: Urinary bladder is unremarkable. Internal genitalia unremarkable. Pelvic wall unremarkable. Peritoneum: Unremarkable Perineal compartments: unremarkable. Fluid: No free intraperitoneal fluid Bones: No aggressive lesions Body wall: Anasarca Impression: Generalized anasarca, likely noncardiac basis. Chronic renal insufficiency could be another possibility. There is no venous obstructive disease. Clinical correlation is requested. Signed by: Silvestre Mcginnis MD on 05/12/2020 3:01 PM
--- NOTE | 2020-05-12 15:15 | Consultation ---
DATE OF CONSULTATION: Cardiac Consultation REASON FOR CONSULTATION: Multiple medical problems. HISTORY OF PRESENT ILLNESS: An 85-year-old lady, who was seen in my office for the first time yesterday. She is known to have longstanding history of hypertension, hyperlipidemia, atrial fibrillation, and remote history of pericardial effusion. However, after reviewing her record today in the hospital, there is also in 01/2020. The patient admitted with pulmonary embolism. Regardless, since that admission in December, the patient is continued to be deteriorating. She is becoming weaker and weaker, more dependent, and markedly debilitated. She is having swelling which is progressively worse in both the lower extremities, although upper extremities. She is having anasarca. She barely can walk. She is having severe shortness of breath and she is quite debilitated. The patient had a blood work done by Dr. Flores. The results came back showing metabolic acidosis, potassium of 6, sodium of 122. She was very ill, so we decided to admit her to the hospital. Of note, the patient's swelling of the lower extremities and weakness are progressively worse and she is also [facility] and she is having seeping of the fluid from her extremities. In summary, her symptoms are easy fatigability, shortness of breath on minimal activity, swelling of the lower extremities and abdomen, weakness, debility, seeping fluid from her lower extremities, unable to walk, becoming dependent, using wheelchair and conditioned to deteriorate. She gained weight, but it is all fluid. CURRENT MEDICATIONS: Eliquis 2.5 mg twice a day, metoprolol 25 mg twice a day, amiodarone 200 mg a day, losartan 100 mg a day, Bumex 0.5 mg daily, potassium chloride 10 mEq a day, and Zetia 10 mg a day. ALLERGIES: NONE. PAST MEDICAL HISTORY: Legs edema progressively worse since December 2019, hypertension, hyperlipidemia, atrial fibrillation since 2014, anasarca since December 2019, swelling of the lower extremity and seeping fluid, history of pericardial disease and pericardial window in 1996, bilateral cataract surgery, left breast lumpectomy, and right carpal tunnel surgery. SOCIAL HISTORY: She is a . She is nonsmoker and non-alcohol drinker. 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 FAMILY HISTORY: Mother at age 83 of old age. Father of congestive heart failure at age 85. No siblings. One healthy son. REVIEW OF SYSTEMS: GENERAL: Debility. No fever. No chills. No night sweats. Increase weight, but all fluid. HEENT: Unremarkable. ENDOCRINE: Increased frequency of urination. No heat intolerance. PULMONARY: Cardiac as per acute illness. GI: Poor appetite. No constipation. No diarrhea. : Frequency and incontinence. HEMATOLOGY: Easy bruising. MUSCULOSKELETAL: Aches and pain. Peripheral vascular with marked swelling of the lower extremities with seeping fluid and extending to the lower abdomen. NEUROLOGICAL: Now using a walker. There is no localized deficit and the patient is very weak. PHYSICAL EXAMINATION: VITAL SIGNS: Height of 5 feet 1 inch, weight of 145 pounds, blood pressure 120/70, heart rate of 90, and respiratory rate of 18. HEENT: Pupils are reactive. NECK: I cannot appreciate jugular venous pulsation. CHEST: Bilateral dullness in both bases. Relatively clear. Crackles are present. HEART: There is no pericardial knock. There is no 3rd heart sound. There is tricuspid regurgitation murmur. ABDOMEN: Ascites is present. EXTREMITIES: Marked swelling of the lower extremities with seeping fluid and drainage from both lower extremities. LABORATORY DATA: Admission sodium was 125, bicarb improved to 20, BUN 27, and creatinine of 1.02. White blood cell count of 6.8, hemoglobin 12, hematocrit 38%, and platelet count of 138,000. Telemetry showing atrial fibrillation. Reviewing old record, CT showed small pulmonary embolism. TSH is normal. Urinalysis showed no proteinuria. Serum osmolarity is low. IMPRESSION AND PLAN: Progressive edema of the lower extremities with complication with seeping fluid and extending to the lower abdomen and hands. Differential diagnosis is wide. This could be simply post IVC occlusion and postphlebitic syndrome, but other differential diagnosis including malignancy, systemic illness, eight heart failure, pulmonary hypertension, liver cirrhosis, constrictive pericarditis, etc.. Renal is ruled out by the urinalysis, which showed no protein. The patient definitely does have atrial fibrillation and hypertension. The patient also does have marked electrolyte imbalance with hyponatremia. From a cardiac point of view for the time being, I am going to order CT chest and abdomen with contrast. Discussed with the radiologist where it can be all done with one iodine dose and we can evaluate the venous as well as structural changes. Gentle diuresis, continuation of beta-gus and ARB with precaution to blood pressure, Eliquis we can resume if we are not going to do any surgical or need for biopsy, etc., but we will wait and will start that after the CAT scan. Prognosis is guarded because whatever the etiology because it is very severe and advanced problem. We will follow the patient's progression with you and would like to thank you for kind referral. MD MIKI Vidal/KATHIAL /[id number]
[2020-05-12] MEDS: APIXAB 2.5 MG TABLET PO SCH (16:32)
[2020-05-12] MEDS: METOPROLOL TARTRATE 25 MG TAB PO SCH (16:32)
[2020-05-12] MEDS: SODIUM CHLORIDE 0.9% 1000ML 1,000 ML IV SCH (16:38)
[2020-05-12] MEDS ORDERED: FUROSEMIDE INJ 10 MG/ML 2 ML VIAL IV SCH (18:00)
--- NOTE | 2020-05-12 19:00 | NUR ---
BEDSIDE SHIFT REPORT GIVEN TO THE POLICY INTERN RN. PT DENIED FURTHER NEEDS.
[2020-05-12] MEDS: FUROSEMIDE INJ 10 MG/ML 4 ML VIAL IV SCH (22:16)
[2020-05-13] VITALS (7 sets, daily range): BP systolic 106–148; BP diastolic 74–91
--- NOTE | 2020-05-13 01:08 | Consultation ---
DATE OF CONSULTATION: 05/12/2020 Gastrointestinal Consultation HISTORY OF PRESENT ILLNESS: An 85-year-old female with multiple comorbidities, had an outpatient blood test done, which showed evidence of renal tubular acidosis. She was subsequently asked to get admitted. She came late in the evening yesterday, I was not able to see her, at the moment. The patient is awake, alert, lying supine, appears feeling ill, mildly tachypneic, semi-recumbent. Has significant ulceration and ischemic changes going on, particularly left foot and skin breakdown with some blisters and blebs on the right foot as well. Lab shows serum sodium of 130, potassium 4.1, chloride 95, and bicarbonate 25, creatinine 0.89. The patient denies any history of any emphysema or COPD. Denies prior history of any kidney insufficiency, kidney stone disease. A significant history of atrial fibrillation. Carotid artery disease, history of prior breast cancer, left lumpectomy, history of pericardial window, history of proctosigmoiditis, prior rectal ulcer, recent pneumonia, history of PE and atrial fibrillation. Also, she is hypertensive. Her white count here shows 6.86. WBC; hemoglobin is 12. Urinalysis shows specific gravity 1.020. 0-5 rbc's, 6-10 wbc's. Urine protein creatinine ratio is 0. Had a chest x-ray and a chest CT, please see official report, shows large right pleural effusion with compressive atelectasis and/or pneumonia, right lung interstitial edema, evidence of cardiomegaly. She has a CT of the chest shows cardiomegaly with signs of right heart failure, large right and small left pleural effusion with atelectasis of the right lung. There is a 10 mm nodule in the left lung apex. This CT was done with contrast, there is no evidence of PE. SOCIAL HISTORY: Does not smoke or drink. Lives by herself. She does not smoke or drink. Also had CT abdomen and pelvis with contrast, small bilateral kidneys with cortical thinning, otherwise unremarkable. Generalized anasarca likely noncardiac basis. ALLERGIES: SHE IS NOT ALLERGIC TO ANY MEDICATION. MEDICATIONS: She is currently on furosemide 20 IV twice a day, which I am going to stop. She has currently IV normal saline going at 50 mL an hour, lorazepam p.r.n., and metoprolol p.r.n. She is on Eliquis. PHYSICAL EXAMINATION: GENERAL: The patient is awake, alert, sitting up, mildly tachypneic, in no apparent distress. VITAL SIGNS: Blood pressure of 121/89, pulse rate 91, afebrile, respiratory rate 19, and oxygen saturation 96% on room air. HEAD AND NECK: Arcus senilis noted. Neck veins are slightly distended. LUNGS: Decreased air entry, impaired percussion noted in right mid and lower zone, left lower field again. Decreased air entry but scattered rales. No rhonchi. HEART: S1 and S2 audible. ABDOMEN: Otherwise soft and nontender. No apparent visceromegaly. Significant skin findings noted on lower extremity with some ruptured blisters with edema cyanosis noted mostly distal part of the left foot in particular with ulcerations noted bilateral. IMPRESSION AND PLAN: Normal kidney function in an elderly female with multiple medical issues. No proteinuria. Her edema in the lower extremity is unrelated to kidneys function or kidney disease. This is probably right heart failure. I do not see an echocardiogram report. She has ischemic changes in lower extremities, will follow [facility]ound Care, Infection Disease, needing any angiogram. In the meantime, we will diurese with Lasix carefully. I will monitor the patient's kidney function, urine output with you. Hyponatremia appears multifactorial. Has mild distal RTA. I am going to add sodium bicarbonate tablets. Discussed with bedside RN, must rule out cellulitis and infection of lower extremity, may need empiric antibiotics. Please see orders, thank you. MD ISREAL Duncan/GLENDA /[id number]
--- NOTE | 2020-05-13 01:52 | History and Physical ---
CHIEF COMPLAINT: This is an 85-year-old lady, who came in with shortness of breath, , and bilateral lower extremity edema. HISTORY OF PRESENT ILLNESS: An 85-year-old, Ms. Storey with a history of hypertension, history of atrial fibrillation, was in usual state of health until the patient was seen by our nurse practitioner. Labs were ordered. The patient was shown to have severe hyponatremia, hyperkalemia, and metabolic acidosis. The patient was admitted to the hospital for electrolyte derangement and also for hyponatremia. The patient's condition has been deteriorating over the last couple of weeks. The patient has become weaker and unable to ambulate without assistance and shortness of breath, which . She has generalized anasarca and in the office, proteins were negative. The patient did not have any nephrotic syndrome. Currently, the patient has metabolic acidosis and is admitted for the same. PAST MEDICAL HISTORY: History of hypertension, history of atrial fibrillation, history of pericardial window, and hyperlipidemia. PAST SURGICAL HISTORY: History of cataract surgery, breast lumpectomy, and carpal tunnel surgery. SOCIAL HISTORY: Never smoker. No EtOH. No IV drug abuse. She lives by herself. Son is a primary market news reporter. FAMILY HISTORY: Positive for hypertension, hyperlipidemia, and congestive heart failure. REVIEW OF SYSTEMS: Negative for chest pain. Positive for some shortness of breath. No nausea, no vomiting. No diarrhea. No orthopnea. No PND. Positive for bilateral lower extremity edema. PHYSICAL EXAMINATION: VITAL SIGNS: Temperature is 97.3, pulse of 79, respirations of 17, blood pressure is 127/74, pulse oximetry of 97%. HEENT: Normocephalic, atraumatic. Pupils are reactive. CVS: S1 and S2 normal. Regular rate and rhythm. EXTREMITIES: Positive for 2+ edema. LABORATORY VALUES: White count of 6.86, hemoglobin of 12, hematocrit of 38.7, neutrophil count is 79.8. Chemistry shows sodium of 125, which is improved. Potassium 4.2, carbon dioxide , which is improved, BUN of 27 and creatinine of 1.02. Lactic acid was 1.4, ALT and AST normal. TSH is 1.384. Urine, no protein. Serology; coronavirus is pending. MICROBIOLOGY: None done. IMAGING STUDIES: Chest CT was done and ordered today and abdominal CT was also done, showed generalized anasarca likely noncardiac basis. Chronic renal insufficiency could be another reasonable possibility. Chest CT shows cardiomegaly with signs of heart failure, large right and small left pleural effusion with atelectasis of the right lung. Anasarca disease and there is presence of a 10 mm nodule in the left lung apex is seen to be associated with . ASSESSMENT AND PLAN: Ms. Laura Storey with: 1. Pulmonary edema. 2. Generalized anasarca, not nephrotic. 3. Atrial fibrillation. 4. Hypertension. 5. Hyponatremia. Gentle diuresis has been started. Eliquis has been held at this time. Consult with Dr. Blankenship for wound care will be done and consult with Dr. Garrido has already been done and Dr. Lugo has seen the patient for Cardiology and we will continue to monitor the patient. The patient also might need a consult with Pulmonary for the right lung nodule, which will be presented. Further recommendation per clinical course. We will continue the patient and she needs adequate diuresis and echocardiogram. Further recommendation per clinical course. We will continue to monitor the patient. MD PORTILLO Spangler/MODL /[id number]
[2020-05-13] MEDS: FUROSEMIDE INJ 10 MG/ML 4 ML VIAL IV SCH ×3 (06:00→22:03)
[2020-05-13 06:19] LABS: BASOPHILS % 0.3 % (0.0-1.0); EOSINOPHILS % 0.3 % (0.0-6.0); HEMATOCRIT 36.8 % (34.2-44.1); HEMOGLOBIN 11.6 g/dL (12.0-16.0); LYMPHOCYTES # (AUTO) 0.6 (1.0-3.2); LYMPHOCYTES % 9.4 % (18.0-39.1); MEAN CORPUSCULAR HEMOGLOBIN 25.5 pg (28-32); MEAN CORPUSCULAR HGB CONC 31.5 g/dL (31-35); MEAN CORPUSCULAR VOLUME 80.9 fL (81-99); MONOCYTES # (AUTO) 0.6 (0.2-0.8); MONOCYTES % 10.6 % (4.4-11.3); NEUTROPHILS # (AUTO) 4.6 (2.1-6.9); NEUTROPHILS % 79.1 % (38.7-80.0); PLATELET COUNT 196 x10e3/uL (140-360); RED BLOOD COUNT 4.55 x10e6/uL (3.6-5.1); RED CELL DISTRIBUTION WIDTH 20.7 % (11.7-14.4)
[2020-05-13 06:42] LABS: ALANINE AMINOTRANSFERASE 28 IU/L (0-55); ALBUMIN 2.8 g/dL (3.5-5.0); ANION GAP 10.3 mmol/L (8-16); BLOOD UREA NITROGEN 18 mg/dL (7-26); BUN/CREATININE RATIO 22 (6-25); CALCIUM 8.3 mg/dL (8.4-10.2); CARBON DIOXIDE 27 mmol/L (22-29); CHLORIDE 98 mmol/L (98-107); CREATININE, SERUM 0.83 mg/dL (0.57-1.11); EST GLOMERULAR FILTRATION RATE > 60 ML/MIN (60-); GLUCOSE 80 mg/dL (74-118); POTASSIUM 3.3 mmol/L (3.5-5.1); SODIUM 132 mmol/L (136-145)
[2020-05-13 06:43] LABS: ALKALINE PHOSPHATASE 78 IU/L (40-150)
--- NOTE | 2020-05-13 07:20 | NUR ---
PATIENT IS ALERT, AWAKE, AND IN STABLE CONDITION WITH NO S/S OF RESPIRATORY DISTRESS. NO PAIN VOICED. BILATERAL LOWER EXTREMITIES: REDNESS AND EDEMA NOTED; LEFT LOWER EXTREMITY HAS MULTIPLE BLISTERS. TELEMETRY APPLIED. IV FLUIDS INFUSING. BEDSIDE COMMODE AVAILABLE NEAR PATIENT'S BEDSIDE. CALL LIGHT IS WITHIN REACH, PATIENT INSTRUCTED TO CALL FOR ASSISTANCE NEEDED.
--- NOTE | 2020-05-13 07:41 | NUR ---
REPORT GIVEN TO DAYSHIFT. ALERT. NO SIGNS IV INFILTRATION. BED LOCKED AND IN LOW POSITION. CALL LIGHT WITHIN REACH. BED ALARM ACTIVATED.
[2020-05-13 08:12] LABS: BAND NEUTROPHILS % (MANUAL) 2 %; LYMPHOCYTES % (MANUAL) 7 % (19-48); MONOCYTES % (MANUAL) 8 % (3.4-9.0); NEUTROPHILS % (MANUAL) 83 % (40-74)
[2020-05-13] MEDS: SODIUM BICARBONATE 650 MG TAB PO SCH ×2 (08:46→16:57)
[2020-05-13] MEDS: METOPROLOL TARTRATE 25 MG TAB PO SCH ×2 (08:47→16:57)
--- NOTE | 2020-05-13 10:34 | Consultation ---
DATE OF CONSULTATION: Wound Consultation Thank you, Dr. Stephan Flores, for asking me to see this patient for multiple ulcers to both lower extremities. HISTORY OF PRESENT ILLNESS: An 85-year-old female patient with history of congestive heart failure, chronic leg edema with the wounds on the lower extremity, secondary to fluid weeping through the skin with a blisters and infection. The patient was following with Dr. Gtz, [facility] at [facility]. She was seen by her PCP and admitted for decompensated CHF, also severely hyponatremic from CHF. PAST MEDICAL HISTORY: Atrial fibrillation, hyperlipidemia, congestive heart failure, chronic leg edema, history of pericardial effusion with pericardial window in 1996. PERSONAL HISTORY: No history of smoking or alcohol. PAST SURGICAL HISTORY: Left breast lumpectomy, right carpal tunnel surgery, pericardial window 1996. MEDICATIONS: Eliquis 2.5 mg daily, metoprolol 25 mg twice a day, amiodarone 200 mg daily, losartan 100 mg daily, potassium 10 mEq daily, Zetia 10 mg daily. ALLERGIES: NONE. PHYSICAL EXAMINATION: VITAL SIGNS: Height 63 inches, weight 156 pounds. HEENT: Normal. NECK: JVD present. LUNGS: Diminished at the base. CVS: Normal. ABDOMEN: Soft, protuberant. EXTREMITIES: Lower Extremities; bilateral 3+ edema present with a fluid weeping through both legs and pitting edema present with multiple fluid blisters, secondary to edema and also one hemorrhagic blisters with some cellulitis to the lower extremities. ASSESSMENT: 1. Multiple lower extremity ulcers and blisters, secondary to edema. 2. Edema, secondary to decompensated congestive heart failure. PLAN: We will apply JOSIAH, [place], and [place] for compression. Management of congestive heart failure and hyponatremia. Thank you for consultation. MD LIBRADO Payton/MODL /[id number]
[2020-05-13] MEDS ORDERED: POTASSIUM CHLORIDE 20 MEQ TAB CR PO NR ×2 (10:45→12:45)
--- NOTE | 2020-05-13 12:39 | Progress Note ---
DATE: SUBJECTIVE: The patient is an 85-year-old female, who was admitted to the hospital for generalized anasarca. The patient continues to be swollen. No chest pain. No shortness of breath. Discussed the case with Dr. Morley and Dr. Lugo. OBJECTIVE: VITAL SIGNS: Temperature is 97.7, pulse of 89, respirations of 18, blood pressure is 125/82, and pulse oximetry of 95% on room air. HEENT: Normocephalic. The patient has generalized swelling in the face. CVS: S1 and S2. Distant murmur present. ABDOMEN: Soft and nontender. EXTREMITIES: 2+ edema with necrotic tissue and sloughing of the tissue in the lower extremities. Wound care consult has been done. LABORATORY VALUES: White count is 5.84, hemoglobin of 11.6, hematocrit 36.8, and platelet count is 196. Chemistries; sodium 132, potassium 3.3, BUN of 18, and creatinine 0.83. BNP was 1732.6 this morning. IMAGING: From yesterday, CT scan shows cardiomegaly with signs of right heart failure, large right and small left pleural effusion, atelectasis of the right lung, anasarca is likely secondary to heart failure. ASSESSMENT AND PLAN: Ms. Laura Storey with; 1. Generalized anasarca. 2. History of atrial fibrillation. 3. Hypertension. 4. Hyponatremia. 5. Echocardiogram from Dr. Lugo's office shows severe TR. Consult with Dr. Garrido for her electrolyte derangement has been done. IV diuresis will be continued. The patient will continue with sodium resuscitation with normal saline. Overall the prognosis remains guarded because of her heart failure. Further recommendation per clinical course. We will continue to monitor the patient and also be in touch with both Cardiology, Dr. Garrido, Nephrology and also a consult with Wound Care has been done with Dr. Blankenship. Further recommendation and clinical course. Stephan Flores MD ASJ/MODL /[id number]
--- NOTE | 2020-05-13 15:13 | NUR ---
Nutrition Screen Note RD Recommendation for Physician: -Continue cardiac diet Plan of Care: RD following, monitoring for tolerance and adequacy Nutrition reason for involvement: Diagnosis - CHF Primary Diagnose(s): CHF, hyponatremia PMH: Atrial fibrillation, hyperlipidemia, congestive heart failure, chronic leg edema, history of pericardial effusion with pericardial window in 1996 Ht: 63 in Wt:136 lb (per pt, weight without excess fluid) BMI: 24.1 kg/m2 (using weight of 136 lbs per pt) IBW:[address] Assessment: (05/13/20) Chart reviewed. Labs and meds reviewed. Pt is an 85 year old female admitted with CHF and hyponatremia. Prior to admission, pt mentioned she usually ate most of her meals. Pt currently has edema in lower extremities per MD note. Pt stated she usually weighs 136 lbs without excess fluid. No N/V/D/C reported. Will continue to monitor Current Diet: cardiac Malnutrition Evaluation (05/13/20) The patient does not meet criteria for a specified degree of malnutrition at this time. Will re-evaluate at follow-up as appropriate. Diet Education Needs Assessment: Pt declined the need for diet education Nutrition Care Level: low Signed: Yuliet Grayson, RD, LD
--- NOTE | 2020-05-13 16:26 | NUR ---
URRENT MEDICATIONS: Eliquis 2.5 mg twice a day, metoprolol 25 mg twice a day, amiodarone 200 mg a day, losartan 100 mg a day, Bumex 0.5 mg daily, potassium chloride 10 mEq a day, and Zetia 10 mg a day. ALLERGIES: NONE. PAST MEDICAL HISTORY: Legs edema progressively worse since December 2019, hypertension, hyperlipidemia, atrial fibrillation since 2014, anasarca since December 2019, swelling of the lower extremity and seeping fluid, history of pericardial disease and pericardial window in 1996, bilateral cataract surgery, left breast lumpectomy, and right carpal tunnel surgery. SOCIAL HISTORY: She is a . She is nonsmoker and non-alcohol drinker. 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 FAMILY HISTORY: Mother at age 83 of old age. Father of congestive heart failure at age 85. No siblings. One healthy son. [id number]
--- NOTE | 2020-05-13 16:55 | Progress Note ---
DATE: SUBJECTIVE: Denied any dyspnea. She is still quite swollen. OBJECTIVE: VITAL SIGNS: Temperature is 97.9, pulse 99, and blood pressure 115/76. CHEST: Clear. Diminished breath sounds at the bases. HEART: Normal heart tones. EXTREMITIES: Edema ++. ASSESSMENT: 1. Congestive heart failure. 2. Hyponatremia. 3. Right heart failure, which is made difficult to diurese. 4. Hyponatremia with fluid overload. PLAN: Continue loop diuretic. Keep fluid-restricted. A.m. chemistries. Avoid NSAIDs. She is on sodium bicarbonate, which we can stop as the serum CO2 is already 27. Replace potassium p.r.n. She is on potassium replacement. We will follow along. MD VICENTA NullK/MODL /[id number]
[2020-05-13] MEDS: POTASSIUM CHLORIDE 20 MEQ TAB CR PO SCH (16:59)
--- NOTE | 2020-05-13 19:24 | NUR ---
PATIENT IN STABLE CONDITION WITH NO S/S OF RESPIRATORY DISTRESS- NO PAIN VOICED. TELE APPLIED. BEDSIDE COMMODE AVAILABLE NEAR PATIENT'S BEDSIDE. BED ALARM APPLIED. CALL LIGHT IS WITHIN REACH, PATIENT INSTRUCTED TO CALL FOR ASSISTANCE NEEDED. BEDSIDE SHIFT REPORT GIVEN TO ONCOMING NURSE.
--- NOTE | 2020-05-13 20:31 | Consultation ---
DATE OF CONSULTATION: 05/13/2020 The patient has cellulitis of the right leg. HISTORY OF PRESENT ILLNESS: This is an 85-year-old white female, who has history of bilateral lower extremity edema, atrial fibrillation, hyperlipidemia, pericardial effusion, multiple admission. She has pulmonary embolism and DVT. She is coming with shortness of breath and swelling to bilateral lower extremities. The patient has complicated medical history. The patient was currently on Eliquis, metoprolol, losartan, amiodarone. The patient also has been having problem with her legs. She said she has open wounds and ulcers. The patient also has severe osteoarthritis. She is using a walker. The patient was admitted. She was seen by Renal. She was seen by Cardiology. The patient has lower extremities bilateral edema with fluid. She also has multiple blisters with redness and swelling of the right more than the left leg. The patient was seen by multiple consultants as mentioned above. I am asked to see her. LABORATORY DATA: Reviewed, white count is 5.8, hemoglobin 4.55. Her sodium 132, potassium 3.3, creatinine 0.83. MEDICATION LIST: She is currently on Lasix. PHYSICAL EXAMINATION: GENERAL: She is currently alert, oriented, does not seem acute distress. VITAL SIGNS: Stable, currently afebrile. HEENT: She is not icteric. NECK: Supple. CHEST: Clear bilateral. HEART: S1 and S2. ABDOMEN: Soft, bowel sounds present. EXTREMITIES: There is no edema. There is erythema noted on the right leg . IMPRESSION: 1. Bilateral lower extremities edema, probably DVT. 2. Congestive heart failure we will put the patient on Ancef 1 g IV q.8. She will be seen by wound care, Dr. Blankenship. She will be seen by Cardiology and Renal. Continue with proper care as ordered. 3. Discussed with the patient and discussed with medical team. We will follow. MD AMINTA Briggs/GLENDA /[id number]
[2020-05-13] MEDS: CEFAZOLIN SOD 1 GM/NS 50ML 50 ML IV SCH (22:03)
[2020-05-13] MEDS: LORAZEPAM 0.5 MG TAB PO PRN (23:40)
[2020-05-14] VITALS (7 sets, daily range): BP systolic 101–144; BP diastolic 67–84
--- NOTE | 2020-05-14 04:45 | NUR ---
DAILY WOUND CARE PROVIDED PER MD ORDER.
[2020-05-14] MEDS: FUROSEMIDE INJ 10 MG/ML 4 ML VIAL IV SCH ×3 (05:50→22:25)
[2020-05-14] MEDS: CEFAZOLIN SOD 1 GM/NS 50ML 50 ML IV SCH ×3 (05:50→22:00)
[2020-05-14 06:25] LABS: BASOPHILS % 0.3 % (0.0-1.0); EOSINOPHILS # (AUTO) 0.2 (0.0-0.4); EOSINOPHILS % 3.1 % (0.0-6.0); HEMATOCRIT 39.3 % (34.2-44.1); HEMOGLOBIN 12.3 g/dL (12.0-16.0); LYMPHOCYTES # (AUTO) 0.6 (1.0-3.2); LYMPHOCYTES % 9.8 % (18.0-39.1); MEAN CORPUSCULAR HGB CONC 31.3 g/dL (31-35); MEAN CORPUSCULAR VOLUME 79.9 fL (81-99); MONOCYTES # (AUTO) 0.9 (0.2-0.8); MONOCYTES % 14.2 % (4.4-11.3); NEUTROPHILS # (AUTO) 4.6 (2.1-6.9); NEUTROPHILS % 72.3 % (38.7-80.0); PLATELET COUNT 197 x10e3/uL (140-360); RED BLOOD COUNT 4.92 x10e6/uL (3.6-5.1); RED CELL DISTRIBUTION WIDTH 21.2 % (11.7-14.4)
--- NOTE | 2020-05-14 06:26 | NUR ---
PT C/O PAIN WITH FLUSH TO R FA IV. NEW 20G IV TO L HAND STARTED. SALINE FLUSH. CDI DRESSING APPLIED. TOLERATED PROCEDURE WELL.
[2020-05-14 07:05] LABS: ALBUMIN 3.1 g/dL (3.5-5.0); ALBUMIN/GLOBULIN RATIO 1.1 (0.8-2.0); ANION GAP 13.6 mmol/L (8-16); CALCIUM 8.7 mg/dL (8.4-10.2); CREATININE, SERUM 0.92 mg/dL (0.57-1.11); POTASSIUM 3.6 mmol/L (3.5-5.1)
--- NOTE | 2020-05-14 07:14 | NUR ---
REPORT GIVEN TO DAYSHIFT NURSE. ALERT. NO SIGNS IV INFILTRATION. BED LOCKED AND IN LOW POSITION. CALL LIGHT WITHIN REACH. BED ALARM ACTIVATED.
--- NOTE | 2020-05-14 07:15 | NUR ---
PATIENT IS IN STABLE CONDITION WITH NO S/S OF RESPIRATORY DISTRESS- NO PAIN VOICED. DRESSING APPLIED TO BILATERAL LOWER EXTREMITIES. TELE APPLIED. CALL LIGHT IS WITHIN REACH, PATIENT INSTRUCTED TO CALL FOR ASSISTANCE NEEDED.
[2020-05-14] MEDS: METOPROLOL TARTRATE 25 MG TAB PO SCH ×2 (08:53→16:33)
[2020-05-14] MEDS: SODIUM BICARBONATE 650 MG TAB PO SCH ×2 (08:53→16:31)
[2020-05-14] MEDS: POTASSIUM CHLORIDE 20 MEQ TAB CR PO SCH ×2 (08:53→16:34)
--- NOTE | 2020-05-14 10:08 | Progress Note ---
DATE: SUBJECTIVE: The patient is an 85-year-old female, who came in with generalized anasarca. Echocardiogram revealed moderate amount of severe TR, right heart failure. The patient is being diuresed at this time. Renal and Cardiology on-board and also Wound Care on-board. Medications reviewed. OBJECTIVE: VITAL SIGNS: Temperature is 97.8, pulse of 88, respirations 17, blood pressure is 112/67, and pulse oximetry of 94% on room air. HEENT: Normocephalic and atraumatic. Pupils are reactive. CVS: S1 and S2 normal. Regular rhythm. ABDOMEN: Soft and nontender. EXTREMITIES: No clubbing. No cyanosis. Positive for edema. Positive for wraps. There is erythema around the toe area, but in general the patient's swelling is down. LABORATORY VALUES: White count of 6.35, hemoglobin of 12.3, and hematocrit of 39.3. Chemistry shows sodium 137, potassium is 3.6, BUN and creatinine are 20 and 0.92. ALT and AST now 46 and 30. Serology; coronavirus pending. Urine essentially normal. IMAGING STUDIES: None done since the . ASSESSMENT: Ms. Laura Storey with: 1. Generalized anasarca. 2. History of atrial fibrillation. 3. Hypertension. 4. Hyponatremia. 5. Severe tricuspid regurgitation. PLAN: Continue with diuresis. Continue holding Eliquis. Continue heart failure medications. Further recommendation per clinical course. Consult on-call include Dr. Montgomery, Dr. Lugo, and Dr. Garrido. MD PORTILLO Spangler/MODL /[id number]
--- NOTE | 2020-05-14 18:09 | NUR ---
PAGED DR. SHOEMAKER AND RECEIVED A CALLBACK- DR. SHOEMAKER INFORMED THE PATIENT WANTS TO SPEAK WITH DR. ALFARO REGARDING THE IR CONSULT FOR THORACENTESIS TOMORROW, 05/15/2020. DR. SHOEMAKER AWARE THAT THE PATIENT DOES NOT WANT TO SIGN THE CONSENT AT THIS TIME. ORDER RECEIVED FOR NPO DIET AFTER MIDNIGHT FOR POSSIBLE IR CONSULT TOMORROW.
--- NOTE | 2020-05-14 19:35 | NUR ---
PATIENT IS IN STABLE CONDITION WITH NO S/S OF RESPIRATORY DISTRESS- NO PAIN VOICED. PATIENT IS AWARE SHE WILL BE NPO AFTER MIDNIGHT; PATIENT WANTS TO SPEAK WITH DR. ALFARO TOMORROW BEFORE AGREEING AND SIGNING THE CONSENT FORM. CALL LIGHT IS WITHIN REACH, PATIENT INSTRUCTED TO CALL FOR ASSISTANCE NEEDED. BEDSIDE SHIFT REPORT GIVEN TO ONCOMING NURSE.
--- NOTE | 2020-05-14 19:51 | NUR ---
RECIVED PT IN BED AOX3 NO S/S OF RESPIRATORY DISTRESS- DENIES PAIN NPO AFTER MIDNIGHT; PATIENT WANTS TO SPEAK WITH DR. ALFARO BEFORE SIGNING THE CONSENT FORM. CALL LIGHT IS WITHIN REACH, CONTINUE TO MONITOR
[2020-05-15] VITALS (7 sets, daily range): BP systolic 97–127; BP diastolic 68–75
[2020-05-15] MEDS ORDERED: SODIUM CHLORIDE 0.9% 250ML 250 ML ONE ×2 (05:01→11:15)
--- NOTE | 2020-05-15 05:57 | NUR ---
PT RESTING ,DENIES PAIN PT REFUSED TO SIGN THE THE CONSENT FOR THORACENTESIS .PT WANTS TO MORE EXPLANATIONS FOR THORACENTESIS .CALL LIGHT WITH IN REACH .CONTINUE TO MONITOR R
[2020-05-15] MEDS: CEFAZOLIN SOD 1 GM/NS 50ML 50 ML IV SCH ×3 (06:00→21:26)
[2020-05-15] MEDS: FUROSEMIDE INJ 10 MG/ML 4 ML VIAL IV SCH ×2 (06:00→15:00)
[2020-05-15 07:22] LABS: INR 1.11
--- NOTE | 2020-05-15 07:28 | NUR ---
BEDSIDE REPORT GIVEN TO THE ONCOMING NURSE
[2020-05-15] MEDS: POTASSIUM CHLORIDE 20 MEQ TAB CR PO SCH ×2 (09:00→15:40)
--- NOTE | 2020-05-15 09:02 | Progress Note ---
DATE: SUBJECTIVE: The patient is an 85-year-old female, who came in with generalized anasarca with severe TR. The patient is still edematous and has no chest pain or shortness of breath, comfortable. OBJECTIVE: VITAL SIGNS: Temperature is 97.1, pulse of 81, respirations of 18, blood pressure is 127/68, pulse oximetry of 99%. HEENT: Normocephalic and atraumatic. The patient has facial edema. CVS: S1 and S2. Regular. Systolic murmur present. ABDOMEN: Soft and nontender. EXTREMITIES: Bandaged and in wraps. LABORATORY VALUES: White count is 6.35 yesterday. Chemistries are pending today. Serology: Coronavirus not detected. IMAGING STUDIES: From the 10th show poor perfusion tap is requested. ASSESSMENT AND PLAN: Ms. Laura Storey with. 1. Generalized anasarca. 2. History of atrial fibrillation. 3. Severe TR, hyponatremia, and hypertension. PLAN: Continue with diuresis. Eliquis stopped. Interventional Radiology to tap the pleural effusion. on service for wound care. Further recommendation per clinical course. Follow with the consultants and we will continue to monitor the patient. Overall, prognosis is guarded. Discussed with son yesterday. MD PORTILLO Spangler/KATHIAL /[id number]
[2020-05-15] MEDS ORDERED: ACETAMINOPHEN 325 MG SUPP PR PRN (09:15)
[2020-05-15 10:00] LABS: ANION GAP 12.9 mmol/L (8-16); BLOOD UREA NITROGEN 18 mg/dL (7-26); BUN/CREATININE RATIO 20 (6-25); CALCIUM 8.7 mg/dL (8.4-10.2); CARBON DIOXIDE 34 mmol/L (22-29); CHLORIDE 95 mmol/L (98-107); CREATININE, SERUM 0.88 mg/dL (0.57-1.11); EST GLOMERULAR FILTRATION RATE > 60 ML/MIN (60-); GLUCOSE 79 mg/dL (74-118); SODIUM 139 mmol/L (136-145)
[2020-05-15 10:07] LABS: POTASSIUM 2.9 mmol/L (3.5-5.1)
--- NOTE | 2020-05-15 10:18 | NUR ---
aware of K2.9. Orders for IV potassium. Per "hold todays po potassium"
[2020-05-15] MEDS: METOPROLOL TARTRATE 25 MG TAB PO SCH ×2 (10:30→16:20)
[2020-05-15] MEDS: SODIUM BICARBONATE 650 MG TAB PO SCH ×2 (10:30→16:20)
[2020-05-15 10:32] LABS: MAGNESIUM 1.8 MG/DL (1.3-2.1); PHOSPHORUS 2.8 MG/DL (2.3-4.7)
[2020-05-15] MEDS ORDERED: POTASSIUM CHLORIDE 20MEQ/100ML 100 ML IV ONE ×3 (11:15→15:15)
--- NOTE | 2020-05-15 12:49 | Diagnostic Imaging Report ---
PROCEDURE: Ultrasound-guided thoracentesis Procedural Personnel Attending physician(s): Teodora Vicente MD Fellow physician(s): None Resident physician(s): None Advanced practice provider(s): None Pre-procedure diagnosis: Pleural effusion Post-procedure diagnosis: Same Indication: Pleural effusion with compromised respiration Additional clinical history: None Complications: No immediate complications. IMPRESSION: Ultrasound-guided thoracentesis with drainage of 1200 mL of serous fluid. Plan: Resume care by clinical team. PROCEDURE SUMMARY: - Limited thoracic ultrasound - Ultrasound-guided thoracentesis - Additional procedure(s): None PROCEDURE DETAILS: Pre-procedure Consent: Informed consent for the procedure including risks, benefits and alternatives was obtained and time-out was performed prior to the procedure. Preparation: The site was prepared and draped using maximal sterile barrier technique including cutaneous antisepsis. Anesthesia/sedation Level of anesthesia/sedation: No sedation Anesthesia/sedation administered by: Not applicable Total intra-service sedation time (minutes): None Limited thoracic ultrasound Limited thoracic ultrasound was performed using a curved transducer. A safe window for thoracentesis was identified. Left hemithorax findings: Not investigated Right hemithorax findings: Large pleural effusion Thoracentesis Local anesthesia was administered. The pleural space was accessed under real-time ultrasound guidance and fluid return confirmed position. The fluid was drained. The catheter was removed, and a sterile bandage was applied. Catheter placed: 5F Maru Post-drainage hemithorax findings: Moderate pleural effusion Additional Details Additional description of procedure: None Equipment details: None Specimens removed: Pleural fluid Estimated blood loss (mL): Less than 10 Standardized report: [id number] Attestation Signer name: Teodora Vicente MD I attest that I was present for the entire procedure. I reviewed the stored images and agree with the report as written. Signed by: Teodora Vicente MD on 05/15/2020 12:46 PM
--- NOTE | 2020-05-15 12:51 | Diagnostic Imaging Report ---
EXAMINATION: CHEST XRAY POST PROCEDURE INDICATION: Postprocedural COMPARISON: Chest CT 05/12/2020 FINDINGS: LINES/TUBES:EKG leads overlie the chest. LUNGS:The lungs are moderately inflated. Right basilar patchy opacity. There is perihilar fullness and indistinctness of the pulmonary vasculature. PLEURA:Interval decrease in size of right pleural effusion, now [id number]. No pneumothorax status post right thoracentesis. MEDIASTINUM:Cardiomediastinal silhouette is mildly enlarged. BONES/SOFT TISSUES:No acute osseous injury. Surgical clips over the left axilla. ABDOMEN:No free air under the diaphragm. IMPRESSION: No pneumothorax status post right thoracentesis. Interval decrease in size of right pleural effusion, now small to moderate. Mild cardiomegaly and pulmonary interstitial edema. Signed by: Teodora Vicente MD on 05/15/2020 12:48 PM
--- NOTE | 2020-05-15 13:00 | NUR ---
Back from thoracentesis. Right upper back 2x2 dressing clean, dry, and intact.
--- NOTE | 2020-05-15 15:30 | NUR ---
CHRIS wrap to BLE clean, dry, and intact. Attempted to change dressing to BLE. Patient states " I do not want dressings to be changed today since they look good and they are not wet."
--- NOTE | 2020-05-15 15:44 | NUR ---
85 YEAR OLD FEMALE ADMITTED TO [facility] WITH DX OF CHF, HYPONATREMIA, AND DIABETIC ACIDOSIS. HEAD TO TOE SKIN ASSESSMENT PERFORMED TODAY. BILATERAL LOWER LEGS PRESENTS WITH 3+ PITTING EDEMA. MULTIPLE SMALL VENOUS ULCERS TO RIGHT LOWER LEG. LEFT LOWER LEG MEDIAL 2.8X3X0.1CM. LEFT ANTERIOR LOWER LEG. ERUPTED BLISTER. 5X2.5X0.1MC. ERYTHEMA TO PERIWOUND. THERE ARE NO OTHER AREAS OF CONCERN NOTED AT THIS TIME. LABS: WBC:6.35 ALB: 3.1 MEDICATIONS: IV CEFAZOLIN. RECOMMENDATIONS: CLEAN BILATERAL LOWER LEG ULCERS WITH NS, APPLY BACTROBAN TO WOUND BED THEN COVER WITH XEROFORM, ABD PAD. APPLY KERLIX AND CHRIS WRAP MILD COMPRESSION. CHANGE DRESSING DAILY. CONTINUE WITH ALTERNATING LOW AIR LOSS MATTRESS. PROVIDE PT WITH BILATERAL HEEL PROTECTORS. REPOSITION PT EVERY TWO HOURS AND PRN. THANKS FOR THIS CONSULTATION. Addendum: 05/15/20 at 1554 by Marcela Ortega RN Amended: Links added.
[2020-05-15] MEDS ORDERED: SODIUM CHLORIDE 0.9% 250ML 500 ML ONE (17:03)
--- NOTE | 2020-05-15 19:44 | NUR ---
Report given to oncoming nurse of patient's status. Resting in mid fowlers position. No s/s of acute distress noted. Side rails upx2, call light within reach, bed alarm on.
--- NOTE | 2020-05-15 19:55 | NUR ---
Received change of shift report from AM nurse. Walking rounds completed.
[2020-05-16] VITALS (7 sets, daily range): BP systolic 98–115; BP diastolic 63–87
--- NOTE | 2020-05-16 | NUR ---
Patient in bed. AAOx3. Denies pain at this time. Asst patient to reposition in bed. IV intact to right AC.Tele AFib. Edema to lower ext. x2. Elevated on pillow. Continue monitor.
--- NOTE | 2020-05-16 04:23 | NUR ---
Patient resting quitly at this time.
[2020-05-16] MEDS: CEFAZOLIN SOD 1 GM/NS 50ML 50 ML IV SCH ×3 (05:36→22:00)
[2020-05-16] MEDS ORDERED: SODIUM CHLORIDE 0.9% 250ML 250 ML ONE (05:49)
--- NOTE | 2020-05-16 07:00 | NUR ---
RECEIVED BEDSIDE SHIFT REPORT FROM OFF GOING NIGHT NURSE. PATIENT IN STABLE CONDITION, NO S/S OF DISTRESS NOTED.TELEMETRY APPLIED. IV SITE ASYMPTOMATIC AND PATENT, WITH TRANSPARENT DRESSING C/D/I. BED ALARM APPLIED. BED IN LOWEST POSITION AND LOCKED. CALL LIGHT WITHIN REACH.
[2020-05-16] MEDS: SPIRONOLACTONE 25 MG TAB PO SCH (08:48)
[2020-05-16] MEDS: FUROSEMIDE 40 MG TAB PO SCH ×2 (08:49→16:39)
[2020-05-16] MEDS: SODIUM BICARBONATE 650 MG TAB PO SCH (08:49)
[2020-05-16] MEDS: METOPROLOL TARTRATE 25 MG TAB PO SCH ×2 (08:49→16:40)
[2020-05-16] MEDS: POTASSIUM CHLORIDE 20 MEQ TAB CR PO SCH ×2 (08:49→16:39)
--- NOTE | 2020-05-16 19:17 | NUR ---
COMPLETED BEDSIDE SHIFT REPORT AND ROUNDS WITH ON COMING NIGHT NURSE. PATIENT IN STABLE CONDITION, NO S/S OF DISTRESS NOTED.TELEMETRY APPLIED. IV SITE ASYMPTOMATIC AND PATENT, WITH TRANSPARENT DRESSING C/D/I. BED ALARM APPLIED. BED IN LOWEST POSITION AND LOCKED. CALL LIGHT WITHIN REACH.
--- NOTE | 2020-05-16 19:27 | NUR ---
Received change of shift report from AM nurse. Walking rounds completed.
--- NOTE | 2020-05-16 19:51 | Progress Note ---
DATE: SUBJECTIVE: The patient is an 85-year-old female, who came in with generalized anasarca. The patient had a tap yesterday, thoracentesis yesterday. The patient is doing better, feeling better. OBJECTIVE: VITAL SIGNS: Temperature is 98.0, pulse of 18, respirations of 16, blood pressure is 103/64, and pulse oximetry of 94%. HEENT: Normocephalic and atraumatic. Swelling is down. CVS: S1 and S2. Normal rate and rhythm. ABDOMEN: Soft, nontender, and nondistended. EXTREMITIES: Positive for edema. In wrapping at this time. MEDICATIONS: Metoprolol twice a day, Lasix 40 mg twice a day p.o., Aldactone 50 mg daily, and lorazepam 0.25 mg as needed. LABORATORY VALUES: Chemistry shows sodium of 139, potassium of 2.9, BUN of 18, and creatinine 0.88. Serology; coronavirus nondetected. ASSESSMENT: Ms. Laura Storey with: 1. Generalized anasarca. 2. History of atrial fibrillation. 3. Severe tricuspid regurgitation. 4. Hyponatremia. 5. Hypertension. 6. Hypokalemia. Replace electrolytes as needed. Continue with current regimen. Eliquis has been restarted. Further recommendation per clinical course. We will continue to monitor the patient. The patient also has wound care consulted. MD SHANNAN SpanglerJ/MODL /[id number]
[2020-05-16] MEDS: LORAZEPAM 0.5 MG TAB PO PRN (22:43)
[2020-05-17] VITALS (8 sets, daily range): BP systolic 93–125; BP diastolic 61–99
[2020-05-17] MEDS: CEFAZOLIN SOD 1 GM/NS 50ML 50 ML IV SCH ×3 (05:05→21:43)
[2020-05-17 05:39] LABS: BASOPHILS % 0.5 % (0.0-1.0); EOSINOPHILS # (AUTO) 0.1 (0.0-0.4); EOSINOPHILS % 1.4 % (0.0-6.0); HEMOGLOBIN 12.7 g/dL (12.0-16.0); LYMPHOCYTES # (AUTO) 0.7 (1.0-3.2); LYMPHOCYTES % 12.5 % (18.0-39.1); MEAN CORPUSCULAR HEMOGLOBIN 25.3 pg (28-32); MEAN CORPUSCULAR VOLUME 81.8 fL (81-99); MONOCYTES # (AUTO) 0.7 (0.2-0.8); MONOCYTES % 11.7 % (4.4-11.3); NEUTROPHILS # (AUTO) 4.3 (2.1-6.9); NEUTROPHILS % 73.6 % (38.7-80.0); PLATELET COUNT 179 x10e3/uL (140-360); RED BLOOD COUNT 5.01 x10e6/uL (3.6-5.1); RED CELL DISTRIBUTION WIDTH 21.6 % (11.7-14.4)
[2020-05-17 06:07] LABS: ALBUMIN 2.5 g/dL (3.5-5.0); ALBUMIN/GLOBULIN RATIO 0.8 (0.8-2.0); CALCIUM 8.4 mg/dL (8.4-10.2); CREATININE, SERUM 0.89 mg/dL (0.57-1.11)
--- NOTE | 2020-05-17 06:39 | NUR ---
Patient resting quitly at this time.
[2020-05-17] MEDS: POTASSIUM CHLORIDE 20 MEQ TAB CR PO SCH (09:01)
[2020-05-17] MEDS: APIXAB 2.5 MG TABLET PO SCH ×2 (09:01→17:08)
[2020-05-17] MEDS: SPIRONOLACTONE 25 MG TAB PO SCH (09:01)
[2020-05-17] MEDS: FUROSEMIDE 40 MG TAB PO SCH ×2 (09:02→17:09)
[2020-05-17] MEDS: METOPROLOL TARTRATE 25 MG TAB PO SCH ×2 (09:02→17:09)
--- NOTE | 2020-05-17 19:15 | NUR ---
patient received awake, alert, lying quietly in bed. vss. no c/o pain noted. dressing left lower leg clean, dry and intact. pm assessment complete. patient instructed to call for assistance when needed. Addendum: 05/17/20 at 2023 by Fani Orozco RN dressings to bilateral lower extremities c,d,i.
--- NOTE | 2020-05-17 19:55 | Progress Note ---
DATE: SUBJECTIVE: The patient is an 85-year-old female, who comes in with generalized anasarca. The patient is doing well, status post thoracentesis by IR. OBJECTIVE: VITAL SIGNS: Temperature is 97.6, pulse of 98, respirations 16, and blood pressure is 125/99. HEENT: Normocephalic and atraumatic. The patient has some swelling in the face. CVS: S1 and S2 normal. Regular rate and rhythm. Ejection systolic murmur present. ABDOMEN: Soft, nontender, nondistended. EXTREMITIES: No clubbing. No cyanosis. Positive for edema with compression bandages on. LABORATORY VALUES: Chemistry showed a BUN of 21, creatinine 0.8. ASSESSMENT: 1. Generalized anasarca. 2. Severe tricuspid regurgitation. 3. Hyponatremia. 4. Hypertension. 5. Hyperkalemia. Continue monitoring the lytes. Continue monitor the patient. Further recommendation per clinical course. We will follow the patient along with consultants. Potassium is back to normal at 4.0, and sodium is back to 138. MD PORTILLO Spangler/MODL /[id number]
[2020-05-17] MEDS: LORAZEPAM 0.5 MG TAB PO PRN (21:51)
[2020-05-18] VITALS (8 sets, daily range): BP systolic 107–121; BP diastolic 72–98
[2020-05-18] MEDS: CEFAZOLIN SOD 1 GM/NS 50ML 50 ML IV SCH ×3 (06:00→22:30)
--- NOTE | 2020-05-18 06:00 | NUR ---
new iv placed to right hand #22 x 3 sticks by different nurses. iv to right ac d/c'd and clean dressing applied to site.
--- NOTE | 2020-05-18 07:00 | NUR ---
bedside report given at this time.
[2020-05-18] MEDS: APIXAB 2.5 MG TABLET PO SCH ×2 (08:55→16:56)
[2020-05-18] MEDS: FUROSEMIDE 40 MG TAB PO SCH ×2 (08:55→16:56)
[2020-05-18] MEDS: SPIRONOLACTONE 25 MG TAB PO SCH (08:55)
[2020-05-18] MEDS: METOPROLOL TARTRATE 25 MG TAB PO SCH ×2 (08:55→16:57)
--- NOTE | 2020-05-18 09:37 | Progress Note ---
DATE: SUBJECTIVE: The patient is seen and evaluated. Available labs and notes reviewed. Discussed with Dr. Montgomery. Please refer to chart for more information. REVIEW OF SYSTEMS: No nausea, vomiting, fever, chills, chest pain, or shortness of breath. Complains of edema of lower extremities, which are not new, however, improved some with Rajendra wrap. MEDICATIONS: Reviewed, on cefazolin. LABORATORY STUDIES: White count of 5.82, platelet 179, and creatinine 0.89. AST slightly elevated at 35. Otherwise, LFT okay. Serology; coronavirus PCR not detected 05/11. No new microbiology. No new radiology. PHYSICAL EXAMINATION: VITAL SIGNS: Temperature 97.4, pulse 77, respirations 21, and blood pressure 121/98. GENERAL: Alert and oriented, no acute distress. CV: S1-S2. CHEST: Equal expansion. Decreased breath sounds. No acute distress. ABDOMEN: Soft, nontender. No distention. HEENT: Moist. No pallor. No JVD. EXTREMITIES: With edema of bilateral lower extremities and wounds, which are Rajendra wrapped and elevated. ASSESSMENT AND PLAN: 1. Edema of bilateral lower extremities. 2. Venous stasis of bilateral lower extremities. 3. Venous stasis ulcers. 4. Congestive heart failure. 5. Pleural effusion. 6. Atrial fibrillation. Continue with Rajendra wrap and elevate bilateral lower extremities. Continue with wound care. Cefazolin started on 06/13. Continue to monitor. Further management of this patient is based on daily findings on laboratory and physical examination. Electrolyte management per others. Please refer to chart for more information. Dictated by Dean Ramires PA-C (Al) Hakan Montgomery MD /MODL /[id number]
--- NOTE | 2020-05-18 14:54 | NUR ---
iv infiltrated and awaiting assistance for restart.
--- NOTE | 2020-05-18 16:56 | Progress Note ---
DATE: SUBJECTIVE: An 85-year-old female, who came in with generalized anasarca. The patient also had pleural effusion, status post TAP . The patient is feeling better. OBJECTIVE: VITAL SIGNS: Temperature 98.4, respirations of 18, blood pressure is 107/72. HEENT: Normocephalic, atraumatic. CVS: S1 and S2. Regular. ABDOMEN: Soft, nontender, nondistended. EXTREMITIES: No clubbing. No cyanosis. The patient has been wrapped and is feeling better. LABORATORY VALUES: Chemistries from yesterday show sodium 132, potassium of , BUN and creatinine normal 21 and 0.8. Serology, coronavirus not detected. IMAGING STUDIES: None done. ASSESSMENT: Ms. Laura Storey with edema of bilateral lower extremity, generalized anasarca, severe TR, venous stasis ulcers, and atrial fibrillation. PLAN: Continue with Rajendra wrapping, electrolyte replacement as needed. Physical therapy to walk the patient. Further recommendation per clinical course. Possible discharge in 1 to 2 days. MD PORTILLO Spangler/MODL /[id number]
--- NOTE | 2020-05-18 19:42 | NUR ---
RECEIVED MARLEY IN BED AOX3 , AND IN STABLE CONDITION WITH NO S/S OF RESPIRATORY DISTRESS. . BILATERAL LOWER EXTREMITIES: WITH DRESSING . HELPED HER TO TO USE BEDSIDE COMMODE . CALL LIGHT IS WITHIN REACH, CONTINUE TO MONITOR
[2020-05-18] MEDS: LORAZEPAM 0.5 MG TAB PO PRN (22:30)
[2020-05-19] VITALS (8 sets, daily range): BP systolic 108–136; BP diastolic 69–91
[2020-05-19] MEDS: CEFAZOLIN SOD 1 GM/NS 50ML 50 ML IV SCH ×3 (05:42→21:59)
[2020-05-19 07:03] LABS: ANION GAP 10.3 mmol/L (8-16); BLOOD UREA NITROGEN 18 mg/dL (7-26); BUN/CREATININE RATIO 23 (6-25); CALCIUM 8.4 mg/dL (8.4-10.2); CARBON DIOXIDE 35 mmol/L (22-29); CHLORIDE 96 mmol/L (98-107); CREATININE, SERUM 0.77 mg/dL (0.57-1.11); EST GLOMERULAR FILTRATION RATE > 60 ML/MIN (60-); GLUCOSE 96 mg/dL (74-118); POTASSIUM 3.3 mmol/L (3.5-5.1); SODIUM 138 mmol/L (136-145)
--- NOTE | 2020-05-19 07:11 | NUR ---
BEDSIDE REPORT GIVEN TO THE ONCOMING NURSE
[2020-05-19] MEDS ORDERED: SODIUM CHLORIDE 0.9% 1000ML 2,000 ML ONE (07:24)
[2020-05-19] MEDS ORDERED: POTASSIUM CHLORIDE 20 MEQ TAB CR PO ONE (09:25)
[2020-05-19] MEDS: FUROSEMIDE 40 MG TAB PO SCH ×2 (10:23→17:00)
[2020-05-19] MEDS: SPIRONOLACTONE 25 MG TAB PO SCH (10:23)
[2020-05-19] MEDS: APIXAB 2.5 MG TABLET PO SCH ×2 (10:23→17:00)
[2020-05-19] MEDS: METOPROLOL TARTRATE 25 MG TAB PO SCH ×2 (10:24→17:01)
--- NOTE | 2020-05-19 16:31 | Progress Note ---
DATE: SUBJECTIVE: The patient is seen and evaluated, available labs and notes reviewed. Discussed with Dr. Montgomery. REVIEW OF SYSTEMS: No nausea, vomiting, fever, chills, chest pain, shortness of breath. The patient had multiple questions, which I answered. PHYSICAL EXAMINATION: VITAL SIGNS: Temperature is 97.8, pulse 80, respirations 18, and blood pressure 119/83. GENERAL: Alert and oriented, very pleasant. CV: S1 and S2. CHEST: Equal expansion, clear to auscultation, in no acute distress. ABDOMEN: Soft, nontender, no distention. HEENT: Moist. No pallor. No JVD. EXTREMITIES: Bilateral lower extremities are wrapped with Rajendra wrap and cap refill on the toes is within 3 seconds and feet feel to be warm. MEDICATIONS: Reviewed. The patient is on cefazolin. LABORATORY STUDIES: No new CBC available. Basic metabolic panel from today showed 138 sodium with a potassium of 3.3 and with a creatinine level of 0.77. SEROLOGY: Coronavirus PCR not detected on 05/11/2020. MICROBIOLOGY: No new microbiology studies available. RADIOLOGY STUDIES: No new radiology studies available. ASSESSMENT AND PLAN: 1. Edema of bilateral lower extremities. 2. Venous stasis, bilateral lower extremities. 3. Venous stasis ulcers. 4. Congestive heart failure. 5. Pleural effusion. 6. Atrial fibrillation. Cefazolin started on 05/13. Continue with wound care. Continue antibiotics. Please refer to chart for more information. Dictated by Dean Ramires PA-C (Al) Hakan Montgomery MD /MODL /[id number]
--- NOTE | 2020-05-19 19:25 | NUR ---
RECEIVED MARLEY IN BED AOX3 , AND IN STABLE CONDITION WITH NO S/S OF RESPIRATORY DISTRESS. . BILATERAL LOWER EXTREMITIES: WITH DRESSING . CALL LIGHT IS WITHIN REACH, CONTINUE TO MONITOR
--- NOTE | 2020-05-19 19:57 | Progress Note ---
DATE: SUBJECTIVE: The patient came in with generalized anasarca. CURRENT MEDICATIONS: Include cefazolin, lorazepam, metoprolol and Aldactone. The patient is also on Lasix. OBJECTIVE: GENERAL: The patient is having compressions done to her lower extremities and is feeling better. VITAL SIGNS: Temperature is 97.7, pulse of 56, blood pressure is 113/67, pulse oximetry of 95% on room air. HEENT: Normocephalic and atraumatic. Pupils are reactive. CVS: S1 and S2. Regular. ABDOMEN: Soft, nontender, nondistended. EXTREMITIES: No clubbing. No cyanosis. Positive for bandaged lower extremity in wraps. LABORATORY VALUES: None done since the . Chemistry shows a sodium 138, potassium 3.3, BUN of 10, creatinine 0.77. Serology; coronavirus not detected. ASSESSMENT AND PLAN: Ms. Laura Storey with edema of bilateral lower extremities, anasarca, moderate TR, congestive heart failure, pleural effusion, atrial fibrillation. Wound care to continue with lower extremity wound. Continue antibiotics as per Dr. Montgomery. Further recommendation per clinical course. We will continue to monitor the patient. MD PORTILLO Spangler/MODL /[id number]
[2020-05-19] MEDS: LORAZEPAM 0.5 MG TAB PO PRN (21:13)
[2020-05-20] VITALS (8 sets, daily range): BP systolic 104–120; BP diastolic 72–86
--- NOTE | 2020-05-20 05:46 | NUR ---
PT RESTING ,DENIES PAIN ,CALL LIGHT WITH IN REACH ,CONTINUE TO MONITOR
[2020-05-20] MEDS: CEFAZOLIN SOD 1 GM/NS 50ML 50 ML IV SCH ×3 (06:00→21:02)
--- NOTE | 2020-05-20 07:02 | NUR ---
BEDSIDE REPORT GIVEN TO THE ONCOMING NURSE
--- NOTE | 2020-05-20 07:25 | NUR ---
PATIENT IN BED WITH HEAD OF BED ELEVATED WATCHING TV, NO CONCERN VOICED. REDNESS AND SWELLING TO LOWER EXTREMITIES WITH CHRIS WRAP IN PLACE. REDNESS AND SWELLING TO LEFT UPPER ARM. BED IN LOWER POSITION, CALL LIGHT AT REACH.
[2020-05-20] MEDS: METOPROLOL TARTRATE 25 MG TAB PO SCH ×2 (09:27→17:17)
[2020-05-20] MEDS: SPIRONOLACTONE 25 MG TAB PO SCH (09:27)
[2020-05-20] MEDS: FUROSEMIDE 40 MG TAB PO SCH ×2 (09:27→17:17)
--- NOTE | 2020-05-20 11:19 | NUR ---
PATIENT ASSISTED TO THE BED SIDE COMMODE AND BACK TO BED. VOIDED LARGE AMOUNT OF YELLOW URINE. IN BED WITH CALL LIGHT AT REACH.
--- NOTE | 2020-05-20 16:01 | Progress Note ---
DATE: SUBJECTIVE: Ms. Storey is doing well. There are no new complaints. PHYSICAL EXAMINATION: GENERAL: Currently alert, oriented. VITALS: Stable, currently afebrile. HEENT: She is not icteric. NECK: Supple. CHEST: Clear. EXTREMITIES: Bilateral lower extremities edema, better. IMPRESSION: 1. Edema. 2. Congestive heart failure. 3. Cellulitis, improving. 4. From Infectious Disease point of view, the patient to be discharged home. Thigh-high elastic stocking. Local care, diuresis as ordered. We will follow. MD AMINTA Briggs/MODL /[id number]
--- NOTE | 2020-05-20 16:35 | NUR ---
PATIENT REPOSITIONED IN BED BY 2 STAFFS. CALL LIGHT AT REACH.
--- NOTE | 2020-05-20 19:15 | NUR ---
patient received awake, alert, lying quietly in bed. no c/o pain noted. pm assessment complete. gisela wraps to ble c,d,i. call galdamez placed within reach. patient instructed to call for assistance when needed.
[2020-05-20] MEDS ORDERED: POTASSIUM CHLORIDE 10MEQ EA PO ONE (20:00)
[2020-05-20] MEDS ORDERED: SODIUM CHLORIDE 0.9% 250ML 250 ML ONE (21:22)
[2020-05-20] MEDS: LORAZEPAM 0.5 MG TAB PO PRN (21:40)
[2020-05-21] VITALS (7 sets, daily range): BP systolic 103–120; BP diastolic 56–88
[2020-05-21] MEDS: CEFAZOLIN SOD 1 GM/NS 50ML 50 ML IV SCH ×3 (05:02→22:50)
[2020-05-21 05:56] LABS: BASOPHILS % 0.6 % (0.0-1.0); EOSINOPHILS # (AUTO) 0.1 (0.0-0.4); EOSINOPHILS % 2.3 % (0.0-6.0); HEMATOCRIT 40.4 % (34.2-44.1); HEMOGLOBIN 12.3 g/dL (12.0-16.0); LYMPHOCYTES # (AUTO) 0.7 (1.0-3.2); LYMPHOCYTES % 13.2 % (18.0-39.1); MEAN CORPUSCULAR HEMOGLOBIN 24.8 pg (28-32); MEAN CORPUSCULAR HGB CONC 30.4 g/dL (31-35); MEAN CORPUSCULAR VOLUME 81.6 fL (81-99); MONOCYTES # (AUTO) 0.7 (0.2-0.8); MONOCYTES % 14.3 % (4.4-11.3); NEUTROPHILS # (AUTO) 3.6 (2.1-6.9); NEUTROPHILS % 69.2 % (38.7-80.0); PLATELET COUNT 196 x10e3/uL (140-360); RED BLOOD COUNT 4.95 x10e6/uL (3.6-5.1)
[2020-05-21 06:44] LABS: ALBUMIN 2.4 g/dL (3.5-5.0); ALBUMIN/GLOBULIN RATIO 0.8 (0.8-2.0); ALKALINE PHOSPHATASE 78 IU/L (40-150); ANION GAP 10.1 mmol/L (8-16); BLOOD UREA NITROGEN 17 mg/dL (7-26); BUN/CREATININE RATIO 20 (6-25); CALCIUM 8.2 mg/dL (8.4-10.2); CARBON DIOXIDE 34 mmol/L (22-29); CHLORIDE 98 mmol/L (98-107); CREATININE, SERUM 0.87 mg/dL (0.57-1.11); EST GLOMERULAR FILTRATION RATE > 60 ML/MIN (60-); GLUCOSE 93 mg/dL (74-118); POTASSIUM 4.1 mmol/L (3.5-5.1); SODIUM 138 mmol/L (136-145)
[2020-05-21 06:49] LABS: ALANINE AMINOTRANSFERASE < 6 IU/L (0-55)
--- NOTE | 2020-05-21 07:00 | NUR ---
RECEIVED PT ON BEDSIDE ROUNDS. BOTH LEGS WITH CHRIS WRAPS IN PLACE.
[2020-05-21] MEDS: FUROSEMIDE 40 MG TAB PO SCH ×2 (09:00→17:00)
[2020-05-21] MEDS: SPIRONOLACTONE 25 MG TAB PO SCH (09:00)
[2020-05-21] MEDS: METOPROLOL TARTRATE 25 MG TAB PO SCH ×2 (09:00→17:00)
--- NOTE | 2020-05-21 09:00 | NUR ---
PT UP EARILER TO BSC AND BACK TO BED. PT INFORMED WHE WILL BE GETTING U[ FOR LUNCH AND SUPPER BECAUSE SHE GETTING WEAK LYING IN THE BED.
--- NOTE | 2020-05-21 09:39 | Progress Note ---
DATE: SUBJECTIVE: The patient did well overnight. She felt like she slept a little bit better. OBJECTIVE: VITAL SIGNS: Temperature 97.6, pulse 79, blood pressure 118/84, sats 96%. GENERAL: No apparent distress, lying in bed. LUNGS: Decreased breath sounds bilaterally. CARDIOVASCULAR: Regular rate and rhythm. ABDOMEN: Good bowel sounds. Soft, nontender. EXTREMITIES: No clubbing or cyanosis. NEUROLOGIC: Nonfocal. ASSESSMENT AND PLAN: 1. Cellulitis. Continue with current care per Infectious Disease. 2. Congestive heart failure. Continue with current care and monitoring. 3. Hypertension. Continue with her spironolactone and metoprolol. 4. Hypokalemia. We will check a CMP and replace as necessary. Please see hospital chart for full details. MD JODIE Zuñiga/GLENDA /[id number]
--- NOTE | 2020-05-21 12:00 | NUR ---
PT HELP WITH AM CARE AND IS SITTING IS CHAIR FOR LUNCH.
--- NOTE | 2020-05-21 18:36 | NUR ---
NO CHANGES AT THIS TIME IN PT STATUS
[2020-05-21] MEDS: LORAZEPAM 0.5 MG TAB PO PRN (22:30)
[2020-05-22] VITALS (8 sets, daily range): BP systolic 104–124; BP diastolic 67–85
[2020-05-22] MEDS: CEFAZOLIN SOD 1 GM/NS 50ML 50 ML IV SCH ×3 (05:19→22:00)
--- NOTE | 2020-05-22 07:20 | NUR ---
PATIENT IS AWAKE, ALERT, AND IN STABLE CONDITION WITH NO S/S OF RESPIRATORY DISTRESS. NO PAIN VOICED. TELEMETRY APPLIED. BED ALARM APPLIED. DRESSING TO BILATERAL LOWER EXTREMITIES ARE C/D/I. CALL LIGHT IS WITHIN REACH, PATIENT INSTRUCTED TO CALL FOR ASSISTANCE NEEDED.
--- NOTE | 2020-05-22 07:27 | Progress Note ---
DATE: SUBJECTIVE: The patient is an 85-year-old female with generalized anasarca. The patient with [id number] TR, presenting with generalized edema. The patient is feeling better today. MEDICATIONS: Reviewed. OBJECTIVE: VITAL SIGNS: Temperature is 97.5, pulse of 75, respirations of 18, blood pressure is 124/85, pulse oximetry of 99% on room air. HEENT: Normocephalic and atraumatic. Pupils are reactive. CVS: S1 and S2 are normal. ABDOMEN: Soft, nontender, nondistended. EXTREMITIES: No clubbing. No cyanosis. Wrapping of the lower extremities. LABORATORY VALUES: Last white count was normal, hemoglobin and hematocrit of 12.3 and 40.4. Chemistries yesterday show potassium 4.1, corrected. ASSESSMENT AND PLAN: Ms. Laura Storey with: 1. Generalized anasarca secondary to TR. 2. Congestive heart failure. 3. Hypertension. 4. Cellulitis of lower extremity. 5. Hypokalemia. 6. Generalized debility. PLAN: Continue as planned. A consult with Physical Therapy and Dr. Hyatt for rehabilitation will be ordered. Further recommendation per clinical course. Continue with wrapping. Hyponatremia has improved since admission. MD PORTILLO Spangler/GLENDA /[id number]
--- NOTE | 2020-05-22 07:37 | NUR ---
infectious disease progress note Date injury 05/21/2020 Patient seen and examined chart reviewed please refer to my notes and orders chart discussed with medical team he patient did well overnight. She felt like she slept a little bit better. OBJECTIVE: VITAL SIGNS: Temperature 97.6, pulse 79, blood pressure 118/84, sats 96%. GENERAL: No apparent distress, lying in bed. LUNGS: Decreased breath sounds bilaterally. CARDIOVASCULAR: Regular rate and rhythm. ABDOMEN: Good bowel sounds. Soft, nontender. EXTREMITIES: No clubbing or cyanosis. NEUROLOGIC: Nonfocal. ASSESSMENT AND PLAN: 1. Cellulitis. Continue as ordered seems to be getting better 2. Congestive heart failure. Continue with current care and monitoring. 3. Hypertension. Continue with her spironolactone and metoprolol. 4. Hypokalemia. We will check a CMP and replace as necessary. Please see hospital chart for full details.
[2020-05-22] MEDS: FUROSEMIDE 40 MG TAB PO SCH ×2 (08:46→16:48)
[2020-05-22] MEDS: SPIRONOLACTONE 25 MG TAB PO SCH (08:46)
[2020-05-22] MEDS: METOPROLOL TARTRATE 25 MG TAB PO SCH ×2 (08:46→16:48)
--- NOTE | 2020-05-22 15:45 | Progress Note ---
DATE: SUBJECTIVE: Ms. Storey is doing better. There are no new complaints. PHYSICAL EXAMINATION: GENERAL: She is currently alert. VITAL SIGNS: Stable, currently afebrile. HEENT: Not icteric. NECK: Supple. CHEST: Clear. IMPRESSION: Cellulitis, doing well. Can change to oral antibiotic. Continue PT/OT. Discharge planning per Internal Medicine. MD AMINTA Briggs/GLENDA /[id number]
[2020-05-22] MEDS: APIXAB 2.5 MG TABLET PO SCH (16:48)
--- NOTE | 2020-05-22 17:40 | NUR ---
Nutrition Screen Note RD Recommendation for Physician: -Continue cardiac diet Plan of Care: RD following, monitoring for tolerance and adequacy Nutrition reason for involvement: follow up Primary Diagnose(s): CHF, hyponatremia PMH: Atrial fibrillation, hyperlipidemia, congestive heart failure, chronic leg edema, history of pericardial effusion with pericardial window in 1996 Ht: 63 in Wt:136 lb (per pt, weight without excess fluid) BMI: 24.1 kg/m2 (using weight of 136 lbs per pt) IBW:[address] Assessment: 05/22: Follow up. Chart reviewed. It is recorded that pt has been consuming 75-100% of meals. Will continue to monitor. (05/13/20) Chart reviewed. Labs and meds reviewed. Pt is an 85 year old female admitted with CHF and hyponatremia. Prior to admission, pt mentioned she usually ate most of her meals. Pt currently has edema in lower extremities per MD note. Pt stated she usually weighs 136 lbs without excess fluid. No N/V/D/C reported. Will continue to monitor Current Diet: cardiac Malnutrition Evaluation (05/13/20) The patient does not meet criteria for a specified degree of malnutrition at this time. Will re-evaluate at follow-up as appropriate. Diet Education Needs Assessment: Pt declined the need for diet education on 05/13 Nutrition Care Level: low Signed: Yuliet Grayson, RD, LD
--- NOTE | 2020-05-22 19:29 | NUR ---
PATIENT IS IN STABLE CONDITION WITH NO S/S OF RESPIRATORY DISTRESS. NO PAIN VOICED. TELEMETRY APPLIED. DRESSINGS ARE C/D/I. CALL LIGHT IS WITHIN REACH, PATIENT INSTRUCTED TO CALL FOR ASSISTANCE NEEDED. BEDSIDE SHIFT REPORT COMPLETED WITH ONCOMING NURSE.
--- NOTE | 2020-05-22 20:01 | NUR ---
RECEIVED AOX3 ,SITTING ON THE BEDSIDE COMMODE HELPED HER PUT BACK TO THE BED NO S/S OF RESPIRATORY DISTRESS. . BILATERAL LOWER EXTREMITIES: WITH DRESSING . CALL LIGHT IS WITHIN REACH, CONTINUE TO MONITOR
[2020-05-22] MEDS: LORAZEPAM 0.5 MG TAB PO PRN (20:55)
[2020-05-23] VITALS (8 sets, daily range): BP systolic 108–141; BP diastolic 61–94
[2020-05-23] MEDS: CEFAZOLIN SOD 1 GM/NS 50ML 50 ML IV SCH ×2 (06:00→13:17)
--- NOTE | 2020-05-23 06:10 | NUR ---
PT RESTING DENIES PAIN ,NO ACUTE DISTRESS NOTED , DRESSING CHANGED CALL LIGHT WITH IN REACH ,CONTINUE TO MONITOR
[2020-05-23 06:33] LABS: ANION GAP 12.1 mmol/L (8-16); BLOOD UREA NITROGEN 16 mg/dL (7-26); BUN/CREATININE RATIO 21 (6-25); CALCIUM 8.4 mg/dL (8.4-10.2); CARBON DIOXIDE 32 mmol/L (22-29); CHLORIDE 96 mmol/L (98-107); CREATININE, SERUM 0.78 mg/dL (0.57-1.11); EST GLOMERULAR FILTRATION RATE > 60 ML/MIN (60-); GLUCOSE 80 mg/dL (74-118); POTASSIUM 3.1 mmol/L (3.5-5.1); SODIUM 137 mmol/L (136-145)
--- NOTE | 2020-05-23 07:15 | NUR ---
PATIENT IS AWAKE, ALERT, AND IN STABLE CONDITION WITH NO S/S OF RESPIRATORY DISTRESS- PATIENT DENIES PAIN. TELEMETRY WITH PULSE OX APPLIED. BILATERAL LOWER EXTREMITIES HAVE DRESSINGS THAT ARE C/D/I. BED ALARM APPLIED. CALL LIGHT IS WITHIN REACH, PATIENT INSTRUCTED TO CALL FOR ASSISTANCE NEEDED.
--- NOTE | 2020-05-23 07:27 | NUR ---
BEDSIDE REPORT GIVEN TO THE ONCOMING NURSE
--- NOTE | 2020-05-23 07:48 | Progress Note ---
DATE: SUBJECTIVE: The patient is in the hospital for metabolic acidosis. The patient has been in the hospital for generalized anasarca, not nephrotic. The patient is feeling better. Consulted with Dr. Hyatt for inpatient rehab has been done. MEDICATIONS: Reviewed. OBJECTIVE: VITAL SIGNS: Temperature is 98.3, pulse of 70, respirations of 18, blood pressure is 114/76, pulse oximetry of 95%. HEENT: Normocephalic atraumatic. CVS: S1 and S2 normal. Regular rhythm. ABDOMEN: Soft, nontender. EXTREMITIES: In compression. LABORATORY DATA: CBC none done from the . Today's sodium is 137, potassium 3.1, BUN of 16, creatinine 0.78. ASSESSMENT: Ms. Laura Storey with. 1. Cellulitis, which she has done well. 2. Metabolic acidosis, done well. 3. Hypertension. 4. Hyperlipidemia. 5. Significant TR. PLAN: Continue with the same program. Dr. Hyatt consult for possible transfer to rehab if accepted. Continue current management. MD PORTILLO Spangler/MODL /[id number]
[2020-05-23] MEDS: APIXAB 2.5 MG TABLET PO SCH ×2 (08:16→16:39)
[2020-05-23] MEDS: SPIRONOLACTONE 25 MG TAB PO SCH (08:16)
[2020-05-23] MEDS: FUROSEMIDE 40 MG TAB PO SCH ×2 (08:17→16:39)
[2020-05-23] MEDS: METOPROLOL TARTRATE 25 MG TAB PO SCH ×2 (08:17→16:39)
--- NOTE | 2020-05-23 09:39 | Progress Note ---
DATE: 05/23/2020 SUBJECTIVE: Still quite swollen. However, she is breathing better. She is on antibiotics, diuresing well. Cellulitis seems improved. PHYSICAL EXAMINATION: GENERAL: Sitting up, no distress. VITAL SIGNS: Temperature is 98.3, pulse 70, blood pressure 114/76. CHEST: Diminished breath sounds at bases. EXTREMITIES: 2+ sacral edema. NEUROLOGIC: Alert and appropriate. LABORATORY DATA: Hemoglobin 12.3. UA was negative for protein. Creatinine 0.8. K is 3.1 that has not yet been replaced. PLAN: P.o. KCl. Continue loop diuretic. Keep salt and water restricted as well as the spironolactone ongoing. MD ZOHRA Null/GLENDA /[id number]
[2020-05-23] MEDS ORDERED: POTASSIUM CHLORIDE 20 MEQ TAB CR PO ONE (11:00)
--- NOTE | 2020-05-23 18:06 | NUR ---
INFECTIOUS DIPSESES SEEN AND examined The patient is in the hospital for metabolic acidosis. The patient has been in the hospital for generalized anasarca, not nephrotic. The patient is feeling better. Consulted with Dr. Hyatt for inpatient rehab has been done. MEDICATIONS: Reviewed. OBJECTIVE: VITAL SIGNS: Temperature is 98.3, pulse of 70, respirations of 18, blood pressure is 114/76, pulse oximetry of 95%. HEENT: Normocephalic atraumatic. CVS: S1 and S2 normal. Regular rhythm. ABDOMEN: Soft, nontender. EXTREMITIES: In compression. LABORATORY DATA: CBC none done from the . Today's sodium is 137, potassium 3.1, BUN of 16, creatinine 0.78. ASSESSMENT: Ms. Laura Storey with. 1. Cellulitis, which she has done well. 2. Metabolic acidosis, done well. 3. Hypertension. 4. Hyperlipidemia. 5. Significant TR. PLAN: Continue with the same program. Dr. Hyatt consult for possible transfer to rehab if accepted. Continue current management.
--- NOTE | 2020-05-23 18:11 | Consultation ---
DATE OF CONSULTATION: I thank Dr. Flores for asking me to see Ms. Raleigh Sanchez in consultation REASON FOR CONSULTATION: 1. Debilitation. 2. Cellulitis. 3. Metabolic acidosis. 4. Hypertension. 5. Hyperlipidemia. 6. Lymphedema. HISTORY: An 85-year-old female who came to the hospital because of overall decline in function and weakness. Has some anasarca, could barely walk, had some shortness of breath, found to have cellulitis as well as lymphedema to the lower extremities. Previous history of PE with IVC placement in the past. She has been weak overall, currently undergoing work up and right now, basically deconditioned. I am asked to evaluate for rehab needs. PAST MEDICAL HISTORY: Leg edema, hypertension, hyperlipidemia, atrial fibrillation, anasarca, lower extremity swelling with weeping, and pericardial disease. PAST SURGICAL HISTORY: Right carpal tunnel surgery, left breast lumpectomy, and bilateral cataract surgery. HOME MEDICATIONS: None. HABITS: Nonsmoker, nondrinker. SOCIAL HISTORY: Lives by herself in a one-story home . FAMILY HISTORY: Mother passed at age 83. Father had passed of congestive heart failure. REVIEW OF SYSTEMS: GENERAL: Debility. No fevers or chills. EYES: Denies. EARS: Denies. ORAL: Denies. NECK: Denies. PULMONARY: No shortness of breath. . GI: Denies. : She has frequency and incontinence. HEMATOLOGIC: Nasally bruising. LABORATORY DATA: White blood count 5.1, hemoglobin 12.3, hematocrit 40.4, and platelets 196. Sodium 137, potassium 3.1, BUN down to 15, and creatinine 0.78. Chest x-ray, no pneumothorax, status post thoracocentesis. PHYSICAL EXAMINATION: GENERAL: Awake, alert, no apparent distress. EYES: Gaze conjugate. ORAL: Tongue is midline. NECK: Supple. HEART: Regular. Lungs: Clear air entry. ABDOMEN: Nondistended, nontender. EXTREMITIES: Functional range of motion to the arms as well as legs, has dressings and compression wrap to the lower extremities secondary to lymphedema. Sensory lubin denies any numbness or tingling in hands, feet, or face. Manual muscle testing 4- to 4/5 strength to upper extremities bilaterally, lower extremities 4/5 strength bilaterally. IMPRESSION: 1. Debilitation. 2. Bilateral lower extremity edema. 3. Status post thoracocentesis. 4. Metabolic acidosis. 5. History of atrial fibrillation. 6. Hypertension. 7. Hyponatremia in the past. 8. Generalized anasarca. PLAN: but she could benefit from more intensive therapy. We will follow along with you and adjust therapies as indicated and consider inpatient rehab to optimize functional and at the same time following on medical issues, precautions, falls. Shaun Hyatt DO RPL/MODL /[id number]
--- NOTE | 2020-05-23 18:21 | NUR ---
DR. GODOY ON THE UNIT- INFORMED KEFZOL REACHED STOP DATE. OKAY TO DC-NO NEW ORDERS
--- NOTE | 2020-05-23 19:16 | NUR ---
PATIENT IS IN STABLE CONDITION WITH NO S/S OF RESPIRATORY DISTRESS. NO PAIN VOICED. TELEMETRY APPLIED. BILATERAL LOWER EXTREMITY DRESSINGS ARE C/D/I. BEDSIDE COMMODE AVAILABLE NEAR BEDSIDE. CALL LIGHT IS WITHIN REACH, PATIENT INSTRUCTED TO CALL FOR ASSISTANCE NEEDED. BEDSIDE SHIFT REPORT COMPLETED WITH ONCOMING NURSE.
--- NOTE | 2020-05-23 19:22 | NUR ---
RECIVED PT IN BED AOX3 NO S/S OF RESPIRATORY DISTRESS- DENIES PAIN CALL LIGHT IS WITHIN REACH, CONTINUE TO MONITOR
[2020-05-23] MEDS: LORAZEPAM 0.5 MG TAB PO PRN (22:30)
[2020-05-23] MEDS ORDERED: ACETAMINOPHEN 325 MG TAB PO PRN (23:45)
[2020-05-24] VITALS (7 sets, daily range): BP systolic 102–133; BP diastolic 61–95
--- NOTE | 2020-05-24 06:07 | NUR ---
DRESSING CHANGED MEDICATED WITH TYLENOL FOR LEG PAIN ,PT RESTING ,CALL LIGHT WITH IN REACH ,CONTINUE TO MONITOR
--- NOTE | 2020-05-24 07:26 | NUR ---
BEDSIDE REPORT GIVEN TO THE ONCOMING NURSE
--- NOTE | 2020-05-24 09:10 | Progress Note ---
DATE: SUBJECTIVE: The patient is an 85-year-old female with a history of significant bilateral lower extremity edema. The patient has been getting compression stockings, physical therapy walked her day before yesterday, none done yesterday, but the patient is very weak. Physical Therapy and rehabilitation are required. The patient awaiting need for SNF and/or inpatient rehab. MEDICATIONS: Reviewed. OBJECTIVE: VITAL SIGNS: Temperature is 97.6, pulse of 77, respirations of 20, and blood pressure is 133/95. HEENT: Normocephalic and atraumatic. Pupils are reactive. CVS: S1 and S2 normal. Murmur present. ABDOMEN: Soft and nontender. EXTREMITIES: In compression bandages. LABORATORY VALUES: None done from the hematologically. Chemistries from yesterday, sodium 137 and potassium 3.1. Serology: Coronavirus not detected. ASSESSMENT: Ms. Laura Storey is with. 1. Cellulitis. Continue on Ancef. 2. Metabolic acidosis, better. 3. Hypertension. 4. Hyperlipidemia. 5. Significant TR. PLAN: Check her BMP again. Further recommendation per clinical course. We will continue to monitor the patient and accepted by Dr. Hyatt as inpatient rehab and can transfer. MD PORTILLO Spangler/GLENDA /[id number]
[2020-05-24] MEDS: SPIRONOLACTONE 25 MG TAB PO SCH ×2 (09:12→17:53)
[2020-05-24] MEDS: METOPROLOL TARTRATE 25 MG TAB PO SCH ×2 (09:12→17:53)
[2020-05-24] MEDS: FUROSEMIDE 40 MG TAB PO SCH ×2 (09:12→17:53)
[2020-05-24] MEDS: APIXAB 2.5 MG TABLET PO SCH ×2 (09:12→17:53)
--- NOTE | 2020-05-24 10:46 | NUR ---
ATTEMPTED CALL TO PT'S ROOM, BUT NO ANSWER. CALL TO NUMBER ON FACE SHEET. PT'S SON, EMILY ACOSTA, ANSWERED. STATES HIS MOTHER HAD ALREADY INFORMED HIM SHE WOULD BE GOING TO [facility] FOR REHAB. DISCUSSED CHOICE. STATES HE GIVES CHOICE FOR [facility]. CHOICE LETTER WAS SIGNED AND MOT INITIATED. REFERRAL WAS FAXED TO [facility] @ FAX: [phone].
--- NOTE | 2020-05-24 11:56 | NUR ---
Patient sitting up in Chair, worked with physical therapy, not in any distress, denies any pain
--- NOTE | 2020-05-24 14:43 | NUR ---
patient seen and examined chart reviewed this is infectious disease progress note patient with no new complaints and review of systems otherwise unremarkable he patient is an 85-year-old female with a history of significant bilateral lower extremity edema. The patient has been getting compression stockings, physical therapy walked her day before yesterday, none done yesterday, but the patient is very weak. Physical Therapy and rehabilitation are required. The patient awaiting need for SNF and/or inpatient rehab. MEDICATIONS: Reviewed. OBJECTIVE: VITAL SIGNS: Temperature is 97.6, pulse of 77, respirations of 20, and blood pressure is 133/95. HEENT: Normocephalic and atraumatic. Pupils are reactive. CVS: S1 and S2 normal. Murmur present. ABDOMEN: Soft and nontender. EXTREMITIES: In compression bandages. LABORATORY VALUES: None done from the hematologically. Chemistries from yesterday, sodium 137 and potassium 3.1. Serology: Coronavirus not detected. ASSESSMENT: Ms. Laura Storey is with. 1. Cellulitis. Continue on Ancef. 2. Metabolic acidosis, better. 3. Hypertension. 4. Hyperlipidemia. 5. Significant TR. Stable from infectious disease point of view await rehab transfer continue with supportive care as ordered
[2020-05-24] MEDS: LORAZEPAM 0.5 MG TAB PO PRN (21:59)
[2020-05-25] VITALS (8 sets, daily range): BP systolic 111–136; BP diastolic 60–90
[2020-05-25 06:25] LABS: BASOPHILS # (AUTO) 0.1 (0.0-0.1); BASOPHILS % 1.1 % (0.0-1.0); EOSINOPHILS # (AUTO) 0.1 (0.0-0.4); EOSINOPHILS % 2.3 % (0.0-6.0); HEMATOCRIT 41.6 % (34.2-44.1); HEMOGLOBIN 12.7 g/dL (12.0-16.0); LYMPHOCYTES # (AUTO) 0.9 (1.0-3.2); MEAN CORPUSCULAR HGB CONC 30.5 g/dL (31-35); MEAN CORPUSCULAR VOLUME 81.7 fL (81-99); MONOCYTES # (AUTO) 0.7 (0.2-0.8); MONOCYTES % 12.5 % (4.4-11.3); NEUTROPHILS # (AUTO) 3.9 (2.1-6.9); NEUTROPHILS % 67.7 % (38.7-80.0); PLATELET COUNT 240 x10e3/uL (140-360); RED BLOOD COUNT 5.09 x10e6/uL (3.6-5.1); RED CELL DISTRIBUTION WIDTH 22.4 % (11.7-14.4)
[2020-05-25 06:49] LABS: ALANINE AMINOTRANSFERASE 6 IU/L (0-55); ALBUMIN 2.7 g/dL (3.5-5.0); ALBUMIN/GLOBULIN RATIO 0.9 (0.8-2.0); ALKALINE PHOSPHATASE 95 IU/L (40-150); ANION GAP 12.7 mmol/L (8-16); BLOOD UREA NITROGEN 19 mg/dL (7-26); BUN/CREATININE RATIO 25 (6-25); CALCIUM 8.7 mg/dL (8.4-10.2); CARBON DIOXIDE 32 mmol/L (22-29); CHLORIDE 97 mmol/L (98-107); CREATININE, SERUM 0.77 mg/dL (0.57-1.11); EST GLOMERULAR FILTRATION RATE > 60 ML/MIN (60-); GLUCOSE 86 mg/dL (74-118); POTASSIUM 3.7 mmol/L (3.5-5.1); SODIUM 138 mmol/L (136-145)
[2020-05-25] MEDS: FUROSEMIDE 40 MG TAB PO SCH ×2 (08:41→16:55)
[2020-05-25] MEDS: SPIRONOLACTONE 25 MG TAB PO SCH (08:41)
[2020-05-25] MEDS: METOPROLOL TARTRATE 25 MG TAB PO SCH ×2 (08:41→16:56)
[2020-05-25] MEDS: APIXAB 2.5 MG TABLET PO SCH ×2 (08:41→16:55)
--- NOTE | 2020-05-25 08:46 | NUR ---
CALL TO [facility] FOR UPDATE. STATES THEY WERE WAITING FOR A PT TO DC SO THEY CAN ADMIT THE PT. WILL AWAIT CALL BACK W [facility].
--- NOTE | 2020-05-25 10:27 | NUR ---
patient resting in bed, Alert with no distress, call light in reach, bed alarm ON
--- NOTE | 2020-05-25 11:15 | NUR ---
PT RESTING QUIETLY. WILL GET UP FOR LUNCH TODAY.
--- NOTE | 2020-05-25 14:45 | NUR ---
RECEIVED CALL FROM [facility]. STATES THE PT THEY WERE SUPPOSED TO DC; THEIR FAMILY CAN'T PICK THEM UP UNTIL TOMORROW. BEDSIDE NURSE NOTIFIED. WILL AWAIT CALL TOMORROW FOR TRANSFER.
--- NOTE | 2020-05-25 15:30 | NUR ---
[facility] WILL GO [facility] PER CM
--- NOTE | 2020-05-25 18:45 | NUR ---
NO CHANGES AT THIS TIME IS PT STATUS.
[2020-05-25] MEDS: LORAZEPAM 0.5 MG TAB PO PRN (22:56)
[2020-05-26] VITALS: BP 127/84
[2020-05-26 04:00] VITALS: BP 99/61
--- NOTE | 2020-05-26 07:10 | NUR ---
Patient endorsed to next shift for continuity of care.
[2020-05-26 08:00] VITALS: BP 110/75
[2020-05-26 08:27] VITALS: BP 110/75
[2020-05-26] MEDS ORDERED: SPIRONOLACTONE 25 MG TAB PO SCH (09:00)
[2020-05-26] MEDS: FUROSEMIDE 40 MG TAB PO SCH ×2 (09:16→16:48)
[2020-05-26] MEDS: APIXAB 2.5 MG TABLET PO SCH ×2 (09:16→16:48)
[2020-05-26] MEDS: METOPROLOL TARTRATE 25 MG TAB PO SCH ×2 (09:17→16:49)
[2020-05-26 11:56] VITALS: BP 127/84
[2020-05-26 16:00] VITALS: BP 121/85
--- NOTE | 2020-05-26 18:32 | NUR ---
PATIENT DISCHARGED TO [facility] REPORT GIVEN TO MADAI JUNIOR @ [id number]. PATIENT DISCHARGED TO [facility]-PATIENT OFF THE UNIT@ VIA STECHER ACCOMPANIED BY 2 EMS. PATIENT IN STABLE CONDITION, NO S/S OF DISTRESS NOTED. NO PAIN VOICED. IV ACCESS LEFT INTACT PER REQUEST OF THE REHAB FACILITY. ALL PERSONAL ITEMS TAKEN WITH THE PATIENT. ALL TRANSFER PAPERWORK GIVEN TO THE EMS. Addendum: 05/26/20 at 1849 by Olivia Monterroso RN PATIENT OFF THE UNIT @ [id number].
--- NOTE | 2020-05-26 19:26 | Progress Note ---
DATE: SUBJECTIVE: Ms. Storey is doing well. There is no new complaint. REVIEW OF SYSTEMS: Otherwise unremarkable. PHYSICAL EXAMINATION: GENERAL: She is currently alert, oriented. VITAL SIGNS: Stable, afebrile. HEENT: She is not icteric. NECK: Supple. CHEST: Clear. HEART: S1-S2. ABDOMEN: Soft. IMPRESSION: The patient is stable. Await discharge planning . MD AMINTA Briggs/MODAmarilys /[id number]
--- NOTE | 2020-05-28 05:31 | Progress Note ---
DATE: 05/25/2020 SUBJECTIVE: Currently, lying in bed comfortably. There are no new complaints. PHYSICAL EXAMINATION: GENERAL: She is currently alert and oriented. VITAL SIGNS: Stable, afebrile. HEENT: She is not icteric. NECK: Supple. CHEST: Clear. ABDOMEN: Soft. IMPRESSION: Stable from Infectious Disease point of view. Cellulitis, we will discontinue antibiotic. Continue local care. Discharge planning is in progress. MD AMINTA Briggs/GLEDNA /[id number]
== END 2020-05-26 18:13 | DRG 291 ==
LOC: MED/SURG3 19:00 → UNDODISIN 05-26 18:14
PROVIDERS: ADMIT Family Medicine; ATTEND Family Medicine
PROC: 0W993ZZ Drainage of Right Pleural Cavity, Percutaneous Approach (ICD-10-PCS; principal; 2020-05-15)
DX: I13.0 Hypertensive heart and chronic kidney disease with heart failure and stage 1 through stage 4 chronic kidney disease, or unspecified chronic kidney disease (principal); I50.31 Acute diastolic (congestive) heart failure; E87.1 Hypo-osmolality and hyponatremia; L97.909 Non-pressure chronic ulcer of unspecified part of unspecified lower leg with unspecified severity; I31.3 Pericardial effusion (noninflammatory); L03.90 Cellulitis, unspecified; E87.2 Acidosis; E87.5 Hyperkalemia; E78.5 Hyperlipidemia, unspecified; Z86.711 Personal history of pulmonary embolism; Z79.01 Long term (current) use of anticoagulants; Z85.3 Personal history of malignant neoplasm of breast; Z86.718 Personal history of other venous thrombosis and embolism; M17.0 Bilateral primary osteoarthritis of knee; I89.0 Lymphedema, not elsewhere classified; I87.2 Venous insufficiency (chronic) (peripheral); E87.6 Hypokalemia; I07.1 Rheumatic tricuspid insufficiency; N18.9 Chronic kidney disease, unspecified; S81.809A Unspecified open wound, unspecified lower leg, initial encounter; Z11.59 Encounter for screening for other viral diseases
CPT/HCPCS: 32555; 36415; 71045; 71260; 74177; 74470; 80048; 80053; 81001; 82570; 82947; 83605; 83735; 83880; 83935; 84100; 84156; 84295; 84300; 84443; 84520; 85025; 85610; 97139; J0690; J1940; J3480; J7030; J7050; Q9967; U0002

== ENCOUNTER 2022-09-26 21:46 | Inpatient (IN) | payer MEDICARE ==
[~2022-09-26] VITALS: Ht 160 cm; Wt 66.2 kg
[~2022-09-26 21:46] MED LIST changes: +DEXAMETHASONE SOD PHOS INJ 4 MG/ML SDV ONE; +ELIQUIS2.5 MG PO; +EPINEPHRINE HCL 1:1000 1ML 1 MG/ML AMP ONE; +GLYCOPYRROLATE INJ 0.2 MG/ML VIAL ONE; +LIDOCAINE HCL 2% LOCAL INJ 5 ML SDV VIAL INJ ONE; +METOCLOPRAMIDE HCL 10 MG/2ML VIAL ONE; +NEOSTIGMINE 1 MG/ML 10ML VIAL ONE; +ONDANSETRON HCL INJ 2MG/ML 2ML 2 MG/ML VIAL ONE; +PHENYLEPHRINE HCL 1% 10 MG/ML VIAL ONE; +POVIDONE IODINE 0.05% 0.05 % ML PO ONE; +PROPOFOL IV EMULSION 10 MG/ML 20 ML VIAL ONE; +ROCURONIUM BROMIDE 10 MG/ML 5ML VIAL IV ONE; +SEVOFLURANE INHAL SOLN 250 ML PEN BTL ONE
[2022-09-26] MEDS ORDERED: ONDANSETRON HCL INJ 2MG/ML 2ML 2 MG/ML VIAL IV PRN (22:30)
[2022-09-26] MEDS ORDERED: FENTANYL CITRATE/PF 100MCG/2 ML INJ IV ONE (22:30)
[2022-09-26 22:45] LABS: BASOPHILS % 0.3 % (0.0-1.0); EOSINOPHILS % 0.1 % (0.0-6.0); HEMATOCRIT 47.3 % (34.2-44.1); HEMOGLOBIN 15.5 g/dL (12.0-16.0); LYMPHOCYTES # (AUTO) 0.6 (1.0-3.2); LYMPHOCYTES % 5.2 % (18.0-39.1); MEAN CORPUSCULAR HGB CONC 32.8 g/dL (31-35); MEAN CORPUSCULAR VOLUME 97.7 fL (81-99); MONOCYTES % 8.2 % (4.4-11.3); NEUTROPHILS # (AUTO) 10.3 (2.1-6.9); NEUTROPHILS % 85.9 % (38.7-80.0); PLATELET COUNT 183 x10e3/uL (140-360); RED BLOOD COUNT 4.84 x10e6/uL (3.6-5.1); RED CELL DISTRIBUTION WIDTH 12.4 % (11.7-14.4)
[2022-09-26] MEDS ORDERED: ONDANSETRON HCL INJ 2MG/ML 2ML 2 MG/ML VIAL ONE (22:51)
[2022-09-26] MEDS ORDERED: FENTANYL CITRATE/PF 100MCG/2 ML INJ ONE (22:51)
[2022-09-26 22:58] LABS: ALANINE AMINOTRANSFERASE 15 IU/L (0-55); ALBUMIN 4.1 g/dL (3.5-5.0); ALBUMIN/GLOBULIN RATIO 1.4 (0.8-2.0); ALKALINE PHOSPHATASE 90 IU/L (40-150); ANION GAP 16.4 mmol/L (8-16); BLOOD UREA NITROGEN 20 mg/dL (7-26); BUN/CREATININE RATIO 21 (6-25); CALCIUM 9.5 mg/dL (8.4-10.2); CARBON DIOXIDE 20 mmol/L (22-29); CHLORIDE 101 mmol/L (98-107); CREATININE, SERUM 0.94 mg/dL (0.57-1.11); GLUCOSE 234 mg/dL (74-118); POTASSIUM 3.4 mmol/L (3.5-5.1); SODIUM 134 mmol/L (136-145)
[2022-09-26 23:10] LABS: CREATINE KINASE MB 1.4 ng/mL (0-5.0)
[2022-09-27] VITALS (9 sets, daily range): BP systolic 105–113; BP diastolic 60–75
[2022-09-27] MEDS: Morphine 4mg INJECTION 4 MG/ML INJ IV PRN ×2 (00:09→13:05)
[2022-09-27] MEDS: SODIUM CHLORIDE 0.9% 1000ML 1,000 ML IV SCH ×2 (01:23→05:42)
[2022-09-27] MEDS ORDERED: FUROSEMIDE40 MG PO (01:55)
[2022-09-27] MEDS ORDERED: SPIRONOLACTONE25 MG PO (01:58)
[2022-09-27] MEDS ORDERED: POTASSIUM CHLO20 ME1 PO (01:59)
[2022-09-27 06:54] LABS: BASOPHILS % 0.2 % (0.0-1.0); EOSINOPHILS % 0.2 % (0.0-6.0); HEMATOCRIT 42.9 % (34.2-44.1); LYMPHOCYTES # (AUTO) 0.8 (1.0-3.2); LYMPHOCYTES % 8.8 % (18.0-39.1); MEAN CORPUSCULAR HEMOGLOBIN 32.1 pg (28-32); MEAN CORPUSCULAR HGB CONC 32.6 g/dL (31-35); MEAN CORPUSCULAR VOLUME 98.4 fL (81-99); MONOCYTES # (AUTO) 0.7 (0.2-0.8); MONOCYTES % 7.7 % (4.4-11.3); NEUTROPHILS # (AUTO) 7.7 (2.1-6.9); NEUTROPHILS % 82.7 % (38.7-80.0); PLATELET COUNT 159 x10e3/uL (140-360); RED BLOOD COUNT 4.36 x10e6/uL (3.6-5.1); RED CELL DISTRIBUTION WIDTH 12.6 % (11.7-14.4)
[2022-09-27 07:30] LABS: ALBUMIN 3.5 g/dL (3.5-5.0); ALBUMIN/GLOBULIN RATIO 1.5 (0.8-2.0); CALCIUM 8.9 mg/dL (8.4-10.2); CREATININE, SERUM 0.72 mg/dL (0.57-1.11)
[2022-09-27 07:55] LABS: CREATINE KINASE MB 1.5 ng/mL (0-5.0)
[2022-09-27] MEDS ORDERED: METOPROLOL TARTRATE INJ 1 MG/ML VIAL IV PRN (11:00)
[2022-09-27] MEDS: METOPROLOL TARTRATE 25 MG TAB PO SCH ×2 (13:09→21:35)
[2022-09-27 14:14] LABS: INR 1.12; PROTHROMBIN TIME 15.4 seconds (11.9-14.5)
[2022-09-28] VITALS (7 sets, daily range): BP systolic 103–121; BP diastolic 62–76
[2022-09-28] MEDS: SODIUM CHLORIDE 0.9% 1000ML 1,000 ML IV SCH ×4 (04:25→22:19)
[2022-09-28] MEDS: Morphine 4mg INJECTION 4 MG/ML INJ IV PRN (05:00)
[2022-09-28] MEDS: METOPROLOL TARTRATE 25 MG TAB PO SCH ×3 (05:59→22:19)
[2022-09-28] MEDS ORDERED: ROPIVACAINE 246.25 MG, EPINEPHRINE HCL 1:1000 1ML 0.5 MG, CLONIDINE HCL 0.08 MG, KETORO... INJ ONE ×5 (09:45)
[2022-09-28] MEDS ORDERED: Vancomycin IV 1,000 MG ONE (09:47)
[2022-09-28] MEDS ORDERED: SODIUM CHLORIDE 0.9% 500ML 500 ML ONE (09:47)
[2022-09-28] MEDS ORDERED: TRANEXAMIC ACID 20 ML ONE (09:47)
[2022-09-28] MEDS ORDERED: TRANEXAMIC ACID 10 ML ONE (09:48)
[2022-09-28] MEDS ORDERED: DEXMEDETOMIDINE HCL 2 ML ONE (10:15)
[2022-09-28] MEDS ORDERED: ROPIVACAINE 0.5% 5 MG/ML 30 ML SDV ONE (10:15)
[2022-09-28] MEDS ORDERED: ONDANSETRON HCL INJ 2MG/ML 2ML 2 MG/ML VIAL IV PRN (11:30)
[2022-09-28] MEDS ORDERED: DIPHENHYDRAMINE HCL INJ 50 MG/ML VIAL IV PRN (11:30)
[2022-09-28] MEDS ORDERED: DOCUSATE SODIUM 100 MG CAP PO PRN (11:30)
[2022-09-28] MEDS ORDERED: ACETAMINOPHEN 650 MG SUPP PR PRN (11:30)
[2022-09-28] MEDS ORDERED: FENTANYL CITRATE/PF 100MCG/2 ML INJ ONE (12:17)
[2022-09-28] MEDS ORDERED: Morphine 10mg syringe 10 MG/ML INJ ONE (12:17)
[2022-09-28] MEDS: CELECOXIB 100 MG CAP PO SCH (16:54)
[2022-09-28] MEDS: ASPIRIN 325 MG TAB PO SCH (16:54)
[2022-09-29] VITALS (7 sets, daily range): BP systolic 108–131; BP diastolic 65–78
[2022-09-29] MEDS: METOPROLOL TARTRATE 25 MG TAB PO SCH ×3 (06:08→22:00)
[2022-09-29 07:25] LABS: HEMATOCRIT 39.6 % (34.2-44.1); HEMOGLOBIN 13.4 g/dL (12.0-16.0)
[2022-09-29] MEDS: SODIUM CHLORIDE 0.9% 1000ML 1,000 ML IV SCH ×2 (07:30→19:09)
[2022-09-29] MEDS: CELECOXIB 100 MG CAP PO SCH ×2 (09:00→19:10)
[2022-09-29] MEDS: ASPIRIN 325 MG TAB PO SCH ×2 (09:00→19:10)
[2022-09-29] MEDS ORDERED: ACETAMINOPHEN 1000 MG/100 ML IV PRN (11:30)
[2022-09-30] VITALS (8 sets, daily range): BP systolic 116–138; BP diastolic 77–89
[2022-09-30 05:56] LABS: HEMATOCRIT 48.5 % (34.2-44.1)
[2022-09-30] MEDS: METOPROLOL TARTRATE 25 MG TAB PO SCH ×3 (06:00→21:57)
[2022-09-30] MEDS: SODIUM CHLORIDE 0.9% 1000ML 1,000 ML IV SCH (06:49)
[2022-09-30] MEDS: CELECOXIB 100 MG CAP PO SCH ×3 (09:00→17:00)
[2022-09-30] MEDS: LOSARTAN POTASSIUM 100 MG TAB PO SCH (09:21)
[2022-09-30] MEDS: FUROSEMIDE 20 MG TAB PO SCH (09:34)
[2022-09-30] MEDS: ASPIRIN 325 MG TAB PO SCH ×2 (09:36→16:06)
[2022-09-30] MEDS: APIXAB 2.5 MG TABLET PO SCH (16:06)
[2022-10-01] VITALS: BP 141/80
[2022-10-01] MEDS: HYDROCODONE/APAP 5MG-325MG TAB PO PRN (01:30)
[2022-10-01 04:00] VITALS: BP 108/64
[2022-10-01] MEDS: METOPROLOL TARTRATE 25 MG TAB PO SCH ×3 (06:26→22:23)
[2022-10-01] MEDS: LOSARTAN POTASSIUM 100 MG TAB PO SCH (08:23)
[2022-10-01] MEDS: APIXAB 2.5 MG TABLET PO SCH ×2 (08:23→17:07)
[2022-10-01] MEDS: FUROSEMIDE 20 MG TAB PO SCH (08:23)
[2022-10-01] MEDS: CELECOXIB 100 MG CAP PO SCH ×2 (08:24→17:00)
[2022-10-01] MEDS: ASPIRIN 325 MG TAB PO SCH (08:24)
[2022-10-01 08:51] VITALS: BP 126/79
[2022-10-01] MEDS ORDERED: ONDANSETRON HCL 4 MG ORAL DISINTEGRATING TAB PO PRN (09:30)
[2022-10-01 14:39] VITALS: BP 121/77
[2022-10-01 16:00] VITALS: BP 158/94
[2022-10-01 21:00] VITALS: BP 135/78
[2022-10-02] MEDS: METOPROLOL TARTRATE 25 MG TAB PO SCH ×3 (05:34→22:00)
[2022-10-02 08:35] VITALS: BP 125/78
[2022-10-02 08:37] VITALS: BP 114/87
[2022-10-02] MEDS: FUROSEMIDE 20 MG TAB PO SCH (09:49)
[2022-10-02] MEDS: CELECOXIB 100 MG CAP PO SCH ×2 (09:49→17:00)
[2022-10-02] MEDS: APIXAB 2.5 MG TABLET PO SCH ×2 (09:49→17:49)
[2022-10-02] MEDS: LOSARTAN POTASSIUM 100 MG TAB PO SCH (09:50)
[2022-10-02 12:20] VITALS: BP 118/76
[2022-10-02 16:31] VITALS: BP 122/80
[2022-10-02 20:00] VITALS: BP 119/79
[2022-10-02 21:00] VITALS: BP 119/79
[2022-10-03] VITALS (7 sets, daily range): BP systolic 116–135; BP diastolic 74–84
[2022-10-03] MEDS: HYDROCODONE/APAP 5MG-325MG TAB PO PRN (02:11)
[2022-10-03 05:52] LABS: BASOPHILS # (AUTO) 0.1 (0.0-0.1); BASOPHILS % 0.5 % (0.0-1.0); EOSINOPHILS # (AUTO) 0.3 (0.0-0.4); EOSINOPHILS % 2.6 % (0.0-6.0); HEMATOCRIT 43.1 % (34.2-44.1); HEMOGLOBIN 13.9 g/dL (12.0-16.0); LYMPHOCYTES # (AUTO) 1.4 (1.0-3.2); LYMPHOCYTES % 12.4 % (18.0-39.1); MEAN CORPUSCULAR HGB CONC 32.3 g/dL (31-35); MEAN CORPUSCULAR VOLUME 99.1 fL (81-99); MONOCYTES # (AUTO) 1.2 (0.2-0.8); MONOCYTES % 10.9 % (4.4-11.3); NEUTROPHILS % 72.6 % (38.7-80.0); PLATELET COUNT 279 x10e3/uL (140-360); RED BLOOD COUNT 4.35 x10e6/uL (3.6-5.1); RED CELL DISTRIBUTION WIDTH 12.6 % (11.7-14.4)
[2022-10-03] MEDS: METOPROLOL TARTRATE 25 MG TAB PO SCH ×3 (05:59→22:26)
[2022-10-03 06:27] LABS: ALBUMIN 2.9 g/dL (3.5-5.0); ALBUMIN/GLOBULIN RATIO 1.2 (0.8-2.0); CALCIUM 8.6 mg/dL (8.4-10.2); CREATININE, SERUM 0.56 mg/dL (0.57-1.11)
[2022-10-03] MEDS: CELECOXIB 100 MG CAP PO SCH ×3 (09:00→17:29)
[2022-10-03] MEDS: APIXAB 2.5 MG TABLET PO SCH ×2 (13:50→17:29)
[2022-10-03] MEDS: FUROSEMIDE 20 MG TAB PO SCH (13:50)
[2022-10-03] MEDS: LOSARTAN POTASSIUM 100 MG TAB PO SCH (13:51)
[2022-10-04] VITALS (8 sets, daily range): BP systolic 115–132; BP diastolic 57–90
[2022-10-04] MEDS: METOPROLOL TARTRATE 25 MG TAB PO SCH ×3 (06:07→21:04)
[2022-10-04] MEDS: CELECOXIB 100 MG CAP PO SCH ×2 (09:54→17:00)
[2022-10-04] MEDS: FUROSEMIDE 20 MG TAB PO SCH (09:55)
[2022-10-04] MEDS: APIXAB 2.5 MG TABLET PO SCH ×2 (09:55→18:00)
[2022-10-04] MEDS: LOSARTAN POTASSIUM 100 MG TAB PO SCH (09:55)
[2022-10-04] MEDS: MELATONIN 3 MG TAB PO SCH (22:14)
[2022-10-05] VITALS (8 sets, daily range): BP systolic 117–137; BP diastolic 70–80
[2022-10-05] MEDS: METOPROLOL TARTRATE 25 MG TAB PO SCH ×3 (05:58→20:45)
[2022-10-05] MEDS: LOSARTAN POTASSIUM 100 MG TAB PO SCH (09:51)
[2022-10-05] MEDS: FUROSEMIDE 20 MG TAB PO SCH (09:51)
[2022-10-05] MEDS: APIXAB 2.5 MG TABLET PO SCH ×2 (09:51→18:05)
[2022-10-05] MEDS: MELATONIN 3 MG TAB PO SCH (20:45)
[2022-10-06] VITALS (7 sets, daily range): BP systolic 109–136; BP diastolic 66–84
[2022-10-06] MEDS: METOPROLOL TARTRATE 25 MG TAB PO SCH ×3 (05:36→20:51)
[2022-10-06] MEDS: FUROSEMIDE 20 MG TAB PO SCH (10:00)
[2022-10-06] MEDS: APIXAB 2.5 MG TABLET PO SCH ×2 (10:01→17:45)
[2022-10-06] MEDS: LOSARTAN POTASSIUM 100 MG TAB PO SCH (10:02)
[2022-10-06] MEDS: MELATONIN 3 MG TAB PO SCH (20:50)
[2022-10-07 00:55] VITALS: BP 119/65
[2022-10-07 04:00] VITALS: BP 122/83
[2022-10-07] MEDS: METOPROLOL TARTRATE 25 MG TAB PO SCH ×3 (05:32→21:45)
[2022-10-07 08:55] VITALS: BP 122/83
[2022-10-07 08:59] VITALS: BP 120/81
[2022-10-07] MEDS: APIXAB 2.5 MG TABLET PO SCH ×2 (10:20→17:00)
[2022-10-07] MEDS: FUROSEMIDE 20 MG TAB PO SCH (10:20)
[2022-10-07] MEDS: LOSARTAN POTASSIUM 100 MG TAB PO SCH (10:21)
[2022-10-07 12:33] VITALS: BP 133/75
[2022-10-07] MEDS: MELATONIN 3 MG TAB PO SCH (21:44)
[2022-10-07 22:58] VITALS: BP 115/78
[2022-10-08] MEDS: METOPROLOL TARTRATE 25 MG TAB PO SCH ×3 (06:00→22:00)
[2022-10-08 08:00] VITALS: BP 115/78
[2022-10-08 08:37] VITALS: BP 116/71
[2022-10-08] MEDS: FUROSEMIDE 20 MG TAB PO SCH (11:15)
[2022-10-08] MEDS: APIXAB 2.5 MG TABLET PO SCH ×2 (11:15→18:11)
[2022-10-08] MEDS: LOSARTAN POTASSIUM 100 MG TAB PO SCH (11:15)
[2022-10-08 12:44] VITALS: BP 120/70
[2022-10-08 20:00] VITALS: BP 140/90
[2022-10-08 21:00] VITALS: BP 140/90
[2022-10-08] MEDS: MELATONIN 3 MG TAB PO SCH (22:01)
[2022-10-09] MEDS: METOPROLOL TARTRATE 25 MG TAB PO SCH ×2 (05:27→16:18)
[2022-10-09 07:43] VITALS: BP 123/83
[2022-10-09] MEDS: LOSARTAN POTASSIUM 100 MG TAB PO SCH (10:17)
[2022-10-09] MEDS: APIXAB 2.5 MG TABLET PO SCH ×2 (10:17→16:20)
[2022-10-09] MEDS: FUROSEMIDE 20 MG TAB PO SCH (10:17)
[2022-10-09 11:13] VITALS: BP 123/83
[2022-10-09 11:24] VITALS: BP 122/67
[2022-10-09 15:20] VITALS: BP 128/75
== END 2022-10-09 18:29 | disposition home or self-care (01) | DRG 521 ==
LOC: ER 22:24 → ERHOLD 22:26 → MED/SURG2 09-27 01:07
PROVIDERS: ADMIT Family Medicine; ATTEND Family Medicine
PROC: 8E0ZXY6 Isolation (ICD-10-PCS; 2022-09-26)
PROC: 0SRR01A Replacement of Right Hip Joint, Femoral Surface with Metal Synthetic Substitute, Uncemented, Open Approach (ICD-10-PCS; principal; 2022-09-27)
DX: S72.011A Unspecified intracapsular fracture of right femur, initial encounter for closed fracture (principal); U07.1 COVID-19; N17.9 Acute kidney failure, unspecified; W19.XXXA Unspecified fall, initial encounter; Z91.81 History of falling; Y93.9 Activity, unspecified; Y92.129 Unspecified place in nursing home as the place of occurrence of the external cause; Z85.3 Personal history of malignant neoplasm of breast; Z79.01 Long term (current) use of anticoagulants; E78.5 Hyperlipidemia, unspecified; I87.2 Venous insufficiency (chronic) (peripheral); I35.1 Nonrheumatic aortic (valve) insufficiency; Z86.711 Personal history of pulmonary embolism; I27.20 Pulmonary hypertension, unspecified; K59.00 Constipation, unspecified; G47.00 Insomnia, unspecified; I48.0 Paroxysmal atrial fibrillation
CPT/HCPCS: 0223U; 36415; 71046; 72170; 80053; 82550; 82553; 84484; 85014; 85018; 85025; 85610; 86850; 86900; 93005; 93306; 94799; 99251; 99284; C1713; J0171; J0690; J1100; J1200; J1885; J2001; J2270; J2370; J2405; J2710; J2765; J2795; J3010; J3370; J7030; J7040